=== PATIENT | female | born 1965 | race Caucasian/White ===

== ENCOUNTER 2018-08-03 08:34 | Emergency (ER) | payer MEDICARE, MEDICAID ==
[2018-08-03] MEDS ORDERED: Fluconazole 100 MG Tab PO ONE (08:47)
--- NOTE | 2018-08-03 09:04 | EDM.PDOC ---
ED HPI GENERAL MEDICAL PROBLEM - General Chief Complaint: Neuro Symptoms/Deficits Stated Complaint: HEADACHES Time Seen by Provider: 08/03/18 09:02 Source of Information: Reports: Patient - History of Present Illness INITIAL COMMENTS - FREE TEXT/NARRATIVE: HISTORY AND PHYSICAL: History of present illness: []Patient has been having some atypical seizure activity she is been followed by neurology in [place] and EEG is been performed multitude of testing she is on her current medication regimen stone she is having more symptoms not actively having symptoms at current . She has followed with Dr. Parkinson and establish care with him, she has not checked drug level since beginning lamotrigine today that is what I would have to offer she is agreeable to this she denies any head imaging as she has had lots of imaging performed in [place] No fever nausea vomiting chills sweats no chest pain shortness breath headache dizziness palpitation no bowel or urine symptoms Review of systems: As per history of present illness and below otherwise all systems reviewed and negative. Past medical history: As per history of present illness and as reviewed below otherwise noncontributory. Surgical history: As per history of present illness and as reviewed below otherwise noncontributory. Social history: No reported history of drug or alcohol abuse. Family history: As per history of present illness and as reviewed below otherwise noncontributory. Physical exam: HEENT: Atraumatic, normocephalic, pupils reactive, negative for conjunctival pallor or scleral icterus, mucous membranes moist, throat clear, neck supple, nontender, trachea midline. Lungs: Clear to auscultation, breath sounds equal bilaterally, chest nontender. Heart: S1S2, regular, negative for clicks, rubs, or JVD. Abdomen: Soft, nondistended, nontender. Negative for masses or hepatosplenomegaly. Negative for costovertebral tenderness. Pelvis: Stable nontender. Genitourinary: Deferred. Rectal: Deferred. Extremities: Atraumatic, negative for cords or calf pain. Neurovascular unremarkable. Neuro: Awake, alert, oriented. Cranial nerves II through XII unremarkable. Cerebellum unremarkable. Motor and sensory unremarkable throughout. Exam nonfocal. Diagnostics: [CBC CMP lamotrigine level ] Therapeutics: []Continue current Follow with Dr. Parkinson for medication adjustment as needed she is scheduled to see Dr. Alicia in September Impression: [] history of seizure disorder Definitive disposition and diagnosis as appropriate pending reevaluation and review of above. Generalized Pain Score (Numeric/FACES): 7 - Related Data Allergies Allergy/AdvReac Type Severity Reaction Status Date / Time No Known Allergies Allergy Verified 08/03/18 08:46 Home Meds: Home Meds Gabapentin [Neurontin] 2 - 3 tab PO ASDIRECTED 02/20/15 [History] traZODone 1 tab PO BEDTIME 02/20/15 [History] Baclofen 10 mg PO DAILY 08/03/18 [History] DULoxetine [Cymbalta] 60 mg PO DAILY 08/03/18 [History] Pramipexole [Mirapex] 0.125 mg PO DAILY 08/03/18 [History] Simvastatin 10 mg PO DAILY 08/03/18 [History] lamoTRIgine [Lamotrigine] 25 mg PO DAILY 08/03/18 [History] Past Medical History HEENT History: Reports: Impaired Vision Other 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 History: 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 glasses 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: Musculoskeletal History: Reports: Neck Pain, Chronic Psychiatric History: Reports: Depression - Past Surgical History GI Surgical History: Reports: Bariatric Procedure, Cholecystectomy Female Surgical History: Reports: Other (See Below) Other Female Surgeries/Procedures: partial hysterectomy Neurological Surgical History: Reports: C-Spine Other Neurological Surgeries/Procedures: 5&6 spinal fusion Social & Family History - Tobacco Use Smoking Status *Q: Former Smoker Used Tobacco, but Quit: Yes Month/Year Tobacco Last Used: 2017 - Caffeine Use Caffeine Use: Reports: None - Recreational Drug Use Recreational Drug Use: No ED ROS GENERAL - Review of Systems Review Of Systems: See Below ED EXAM, GENERAL - Physical Exam Exam: See Below Course - Vital Signs Last Recorded V/S: Last Vital Signs Temp 97.7 F 08/03/18 08:41 Pulse 82 08/03/18 08:41 Resp 16 08/03/18 08:41 BP 126/57 L 08/03/18 08:41 Pulse Ox 95 08/03/18 08:41 - Orders/Labs/Meds Orders: Active Orders 24 hr Category Date Time Status LAMOTRIGINE, SERUM [REF] Stat Lab 08/03/18 08:57 Ordered Labs: Laboratory Tests 08/03/18 08/03/18 Range/Units 09:10 09:10 WBC 5.13 (4.0-11.0) K/uL RBC 4.21 L (4.30-5.90) M/uL Hgb 12.8 (12.0-16.0) g/dL Hct 37.9 (36.0-46.0) % MCV 90.0 (80.0-98.0) fL MCH 30.4 (27.0-32.0) pg MCHC 33.8 (31.0-37.0) g/dL RDW Std Deviation 44.5 (28.0-62.0) fl RDW Coeff of Etienne 14 (11.0-15.0) % Plt Count 239 (150-400) K/uL MPV 9.50 (7.40-12.00) fL Nucleated RBC % 0.0 /100WBC Nucleated RBCs # 0 K/uL Sodium 138 (136-145) mmol/L Potassium 4.2 (3.5-5.1) mmol/L Chloride 106 (98-107) mmol/L Carbon Dioxide 24.6 (21.0-32.0) mmol/L BUN 10 (7.0-18.0) mg/dL Creatinine 0.6 (0.6-1.0) mg/dL Est Cr Clr Drug Dosing 102.68 mL/min Estimated GFR (MDRD) > 60.0 ml/min Glucose 77 (74-106) mg/dL Calcium 8.3 L (8.5-10.1) mg/dL Total Bilirubin 0.4 (0.2-1.0) mg/dL AST 22 (15-37) IU/L ALT 52 (14-63) IU/L Alkaline Phosphatase 56 (46-116) U/L Total Protein 6.4 (6.4-8.2) g/dL Albumin 3.3 L (3.4-5.0) g/dL Globulin 3.1 (2.0-3.5) g/dL Albumin/Globulin Ratio 1.1 L (1.3-2.8) Meds: Medications Discontinued Medications Generic Name Dose Route Start Last Admin Trade Name Freq PRN Reason Stop Dose Admin Fluconazole 100 mg 08/03/18 08:47 08/03/18 08:59 Diflucan PO 08/03/18 08:48 Not Given ONETIME ONE Departure - Departure Time of Disposition: 09:43 Disposition: Home, Self-Care 01 Condition: Good Clinical Impression: Encounter for medical screening examination - Discharge Information Forms: ED Department Discharge Additional Instructions: The following information is given to patients seen in the emergency department who are being discharged to home. This information is to outline your options for follow-up care. We provide all patients seen in our emergency department with a follow-up referral. The need for follow-up, as well as the timing and circumstances, are variable depending upon the specifics of your emergency department visit. If you don't have a primary care physician on staff, we will provide you with a referral. We always advise you to contact your personal physician following an emergency department visit to inform them of the circumstance of the visit and for follow-up with them and/or the need for any referrals to a consulting specialist. The emergency department will also refer you to a specialist when appropriate. This referral assures that you have the opportunity for follow-up care with a specialist. All of these measure are taken in an effort to provide you with optimal care, which includes your follow-up. Under all circumstances we always encourage you to contact your private physician who remains a resource for coordinating your care. When calling for follow-up care, please make the office aware that this follow-up is from your recent emergency room visit. If for any reason you are refused follow-up, please contact the [facility] emergency department at and asked to speak to the emergency department charge nurse. - My Orders Last 24 Hours: My Active Orders 08/03/18 08:57 LAMOTRIGINE, SERUM [REF] Stat - Assessment/Plan Last 24 Hours: My Active Orders 08/03/18 08:57 LAMOTRIGINE, SERUM [REF] Stat
[2018-08-03 09:40] LABS: CHLORIDE,CL 106 mmol/L (98-107); SODIUM,NA 138 mmol/L (136-145)
[2018-08-03 09:54] VITALS: BP 126/52
== END 2018-08-03 09:50 | disposition home or self-care (01) ==
LOC: MW.ED 08:34
DX: Z13.858 Encounter for screening for other nervous system disorders (principal); Z79.899 Other long term (current) drug therapy
CPT/HCPCS: 80053; 80175; 85027; 99282; 99283

== ENCOUNTER 2019-01-31 12:08 | Emergency (ER) | payer MEDICARE, MEDICAID ==
--- NOTE | 2019-01-31 12:21 | EDM.PDOC ---
ED HPI GENERAL MEDICAL PROBLEM - General Chief Complaint: ENT Problem Stated Complaint: SICK Time Seen by Provider: 01/31/19 12:18 - History of Present Illness INITIAL COMMENTS - FREE TEXT/NARRATIVE: HISTORY AND PHYSICAL: History of present illness: Patient 53-year-old female sensory concern of congestion and sinus drainage facial pain over last week she denies tobacco alcohol she states she has had tactile fever denies vomiting or diarrhea. Review of systems: As per history of present illness and below otherwise all systems reviewed and negative. Past medical history: As per history of present illness and as reviewed below otherwise noncontributory. Surgical history: As per history of present illness and as reviewed below otherwise noncontributory. Social history: No reported history of drug or alcohol abuse. Family history: As per history of present illness and as reviewed below otherwise noncontributory. Physical exam: HEENT: Atraumatic, normocephalic, pupils reactive, negative for conjunctival pallor or scleral icterus, mucous membranes moist, throat clear, neck supple, nontender, trachea midline. Tenderness over frontal and maxillary sinuses to percussion Lungs: Clear to auscultation, breath sounds equal bilaterally, chest nontender. Heart: S1S2, regular, negative for clicks, rubs, or JVD. Abdomen: Soft, nondistended, nontender. Negative for masses or hepatosplenomegaly. Negative for costovertebral tenderness. Pelvis: Stable nontender. Genitourinary: Deferred. Rectal: Deferred. Extremities: Atraumatic, negative for cords or calf pain. Neurovascular unremarkable. Neuro: Awake, alert, oriented. Cranial nerves II through XII unremarkable. Cerebellum unremarkable. Motor and sensory unremarkable throughout. Exam nonfocal. Diagnostics: Influenza screen Therapeutics: None Impression: #1 sinusitis Definitive disposition and diagnosis as appropriate pending reevaluation and review of above. 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 ED EXAM, GENERAL - Physical Exam Exam: See Below (See dictation) Course - Orders/Labs/Meds Orders: Active Orders 24 hr Category Date Time Status INFLUENZA A+B AG SCREEN [RM] Stat Lab 01/31/19 12:19 Ordered Departure - Departure Time of Disposition: 12:20 Disposition: Home, Self-Care 01 Condition: Good Clinical Impression: Sinusitis - Discharge Information Referrals: PCP,Unknown [Primary Care Provider] - Additional Instructions: The following information is given to patients seen in the emergency department who are being discharged to home. This information is to outline your options for follow-up care. We provide all patients seen in our emergency department with a follow-up referral. The need for follow-up, as well as the timing and circumstances, are variable depending upon the specifics of your emergency department visit. If you don't have a primary care physician on staff, we will provide you with a referral. We always advise you to contact your personal physician following an emergency department visit to inform them of the circumstance of the visit and for follow-up with them and/or the need for any referrals to a consulting specialist. The emergency department will also refer you to a specialist when appropriate. This referral assures that you have the opportunity for followup care with a specialist. All of these measure are taken in an effort to provide you with optimal care, which includes your followup. Under all circumstances we always encourage you to contact your private physician who remains a resource for coordinating your care. When calling for followup care, please make the office aware that this follow-up is from your recent emergency room visit. If for any reason you are refused follow-up, please contact the [facility] emergency department at and asked to speak to the emergency department charge nurse. Augmentin as prescribed decongestants as discussed follow-up private medical doctor as needed as discussed and return as needed as discussed - My Orders Last 24 Hours: My Active Orders 01/31/19 12:19 INFLUENZA A+B AG SCREEN [RM] Stat - Assessment/Plan Last 24 Hours: My Active Orders 01/31/19 12:19 INFLUENZA A+B AG SCREEN [RM] Stat
[2019-01-31 13:03] VITALS: BP 103/74
== END 2019-01-31 13:00 | disposition home or self-care (01) ==
LOC: MW.ED 12:08
DX: J32.9 Chronic sinusitis, unspecified (principal); Z79.899 Other long term (current) drug therapy
CPT/HCPCS: 87804; 99283

== ENCOUNTER 2019-04-07 08:04 | Emergency (ER) | payer MEDICARE, MEDICAID ==
--- NOTE | 2019-04-07 08:28 | EDM.PDOC ---
ED HPI GENERAL MEDICAL PROBLEM - General Chief Complaint: ENT Problem Stated Complaint: HARD TO SWALLOW Time Seen by Provider: 04/07/19 08:26 Source of Information: Reports: Patient - History of Present Illness INITIAL COMMENTS - FREE TEXT/NARRATIVE: HISTORY AND PHYSICAL: History of present illness: [Patient presents with sore throat for 3 weeks some difficulty with solid food no difficulty with liquid no muffled voice drooling or trismus has been on a round of antibiotics for sinusitis early on symptomology No fever nausea vomiting chills sweats muffled voice drooling or trismus ] Review of systems: As per history of present illness and below otherwise all systems reviewed and negative. Past medical history: As per history of present illness and as reviewed below otherwise noncontributory. Surgical history: As per history of present illness and as reviewed below otherwise noncontributory. Social history: No reported history of drug or alcohol abuse. Family history: As per history of present illness and as reviewed below otherwise noncontributory. Physical exam: HEENT: Atraumatic, normocephalic, pupils reactive, negative for conjunctival pallor or scleral icterus, mucous membranes moist, throat clear, neck supple, nontender, trachea midline. Mild erythema Lungs: Clear to auscultation, breath sounds equal bilaterally, chest nontender. Heart: S1S2, regular, negative for clicks, rubs, or JVD. Abdomen: Soft, nondistended, nontender. Negative for masses or hepatosplenomegaly. Negative for costovertebral tenderness. Pelvis: Stable nontender. Genitourinary: Deferred. Rectal: Deferred. Extremities: Atraumatic, negative for cords or calf pain. Neurovascular unremarkable. Neuro: Awake, alert, oriented. Cranial nerves II through XII unremarkable. Cerebellum unremarkable. Motor and sensory unremarkable throughout. Exam nonfocal. Diagnostics: [Rapid strep ] Therapeutics: [Augmentin Diflucan ] Impression: [ pharyngitis ] Definitive disposition and diagnosis as appropriate pending reevaluation and review of above. throat Pain Score (Numeric/FACES): 8 - Related Data Allergies Allergy/AdvReac Type Severity Reaction Status Date / Time No Known Allergies Allergy Verified 04/07/19 08:15 Home Meds: Home Meds traZODone 1 - 2 tab PO BEDTIME 02/20/15 [History] Simvastatin 10 mg PO DAILY 08/03/18 [History] ALPRAZolam [Alprazolam] 1 mg PO BID PRN 04/07/19 [History] Ergocalciferol (Vitamin D2) [Vitamin D2] 1.25 mg PO DAILY 04/07/19 [History] Ferrous Sulfate 325 mg PO BIDMEALS 04/07/19 [History] Gabapentin [Neurontin] 600 mg PO DAILY 04/07/19 [History] Mirtazapine [Remeron] 15 mg PO BEDTIME 04/07/19 [History] Pramipexole [Mirapex] 0.125 mg PO BID 04/07/19 [History] lamoTRIgine [Lamotrigine] 15 mg PO BID 04/07/19 [History] Past Medical History HEENT History: Reports: Impaired Vision Other HEENT History: wears glasses 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 History: Reports: High Cholesterol 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: Musculoskeletal History: Reports: Neck Pain, Chronic Neurological History: Reports: Seizure Psychiatric History: Reports: Anxiety, Depression - Past Surgical History GI Surgical History: Reports: Bariatric Procedure, Cholecystectomy Female Surgical History: Reports: Dilitation & Evacuation, Other (See Below) Other Female Surgeries/Procedures: partial hysterectomy Neurological Surgical History: Reports: C-Spine Other Neurological Surgeries/Procedures: 5&6 spinal fusion Social & Family History - Family History Family Medical History: Noncontributory - Caffeine Use Caffeine Use: Reports: None ED ROS GENERAL - Review of Systems Review Of Systems: See Below ED EXAM, GENERAL - Physical Exam Exam: See Below Course - Vital Signs Last Recorded V/S: Last Vital Signs Temp 97.3 F 04/07/19 08:25 Pulse 75 04/07/19 08:25 Resp 16 04/07/19 08:25 BP 124/57 L 04/07/19 08:25 Pulse Ox 95 04/07/19 08:25 - Orders/Labs/Meds Orders: Active Orders 24 hr Category Date Time Status Soft Tissue Neck w Cont [CT] Stat Exams 04/07/19 08:28 Taken CULTURE STREP A CONFIRMATION [RM] Stat Lab 04/07/19 08:42 Results STREP SCRN A RAPID W CULT CONF [RM] Stat Lab 04/07/19 08:42 Results Labs: Laboratory Tests 04/07/19 04/07/19 Range/Units 08:51 08:51 WBC 6.34 (4.0-11.0) K/uL RBC 4.35 (4.30-5.90) M/uL Hgb 13.1 (12.0-16.0) g/dL Hct 40.1 (36.0-46.0) % MCV 92.2 (80.0-98.0) fL MCH 30.1 (27.0-32.0) pg MCHC 32.7 (31.0-37.0) g/dL RDW Std Deviation 52.1 (28.0-62.0) fl RDW Coeff of Etienne 15 (11.0-15.0) % Plt Count 268 (150-400) K/uL MPV 9.10 (7.40-12.00) fL Neut % (Auto) 59.3 (48.0-80.0) % Lymph % (Auto) 30.3 (16.0-40.0) % Ballard % (Auto) 8.5 (0.0-15.0) % Eos % (Auto) 1.4 (0.0-7.0) % Baso % (Auto) 0.5 (0.0-1.5) % Neut # (Auto) 3.8 (1.4-5.7) K/uL Lymph # (Auto) 1.9 (0.6-2.4) K/uL Ballard # (Auto) 0.5 (0.0-0.8) K/uL Eos # (Auto) 0.1 (0.0-0.7) K/uL Baso # (Auto) 0.0 (0.0-0.1) K/uL Nucleated RBC % 0.0 /100WBC Nucleated RBCs # 0 K/uL Sodium 139 (136-145) mmol/L Potassium 4.3 (3.5-5.1) mmol/L Chloride 105 (98-107) mmol/L Carbon Dioxide 25.7 (21.0-32.0) mmol/L BUN 13 (7.0-18.0) mg/dL Creatinine 0.7 (0.6-1.0) mg/dL Est Cr Clr Drug Dosing 88.01 mL/min Estimated GFR (MDRD) > 60.0 ml/min Glucose 92 (74-106) mg/dL Calcium 8.3 L (8.5-10.1) mg/dL Meds: Medications Discontinued Medications Generic Name Dose Route Start Last Admin Trade Name Miguelito PRN Reason Stop Dose Admin Sodium Chloride 1,000 mls @ 999 mls/hr 04/07/19 08:30 04/07/19 08:56 Normal Saline IV 04/07/19 09:30 999 mls/hr STAT ONE Administration Iopamidol 80 ml 04/07/19 10:10 04/07/19 10:10 Isovue Multipack-370 (76%) IVPUSH 04/07/19 10:11 80 ml ONETIME STA Administration Departure - Departure Time of Disposition: 11:39 Disposition: Home, Self-Care 01 Condition: Good Clinical Impression: Pharyngitis - Discharge Information Referrals: PCP,None [Primary Care Provider] - Forms: ED Department Discharge Additional Instructions: The following information is given to patients seen in the emergency department who are being discharged to home. This information is to outline your options for follow-up care. We provide all patients seen in our emergency department with a follow-up referral. The need for follow-up, as well as the timing and circumstances, are variable depending upon the specifics of your emergency department visit. If you don't have a primary care physician on staff, we will provide you with a referral. We always advise you to contact your personal physician following an emergency department visit to inform them of the circumstance of the visit and for follow-up with them and/or the need for any referrals to a consulting specialist. The emergency department will also refer you to a specialist when appropriate. This referral assures that you have the opportunity for follow-up care with a specialist. All of these measure are taken in an effort to provide you with optimal care, which includes your follow-up. Under all circumstances we always encourage you to contact your private physician who remains a resource for coordinating your care. When calling for follow-up care, please make the office aware that this follow-up is from your recent emergency room visit. If for any reason you are refused follow-up, please contact the [facility] emergency department at and asked to speak to the emergency department charge nurse. - My Orders Last 24 Hours: My Active Orders 04/07/19 08:28 Soft Tissue Neck w Cont [CT] Stat 04/07/19 08:42 CULTURE STREP A CONFIRMATION [RM] Stat STREP SCRN A RAPID W CULT CONF [RM] Stat - Assessment/Plan Last 24 Hours: My Active Orders 04/07/19 08:28 Soft Tissue Neck w Cont [CT] Stat 04/07/19 08:42 CULTURE STREP A CONFIRMATION [RM] Stat STREP SCRN A RAPID W CULT CONF [RM] Stat
[2019-04-07] MEDS ORDERED: Sodium Chloride 0.9% 1,000 ML IV ONE (08:30)
[2019-04-07 09:14] LABS: CHLORIDE,CL 105 mmol/L (98-107); SODIUM,NA 139 mmol/L (136-145)
[2019-04-07] MEDS ORDERED: Iopamidol 755 MG/ML 500 ML Multipack Bottle IVPUSH STA (10:10)
--- NOTE | 2019-04-07 11:40 | CT ---
INDICATION: Sore throat. Difficulty swallowing. TECHNIQUE: CT scan of the neck with 80 cc of Isovue-370 given intravenously. FINDINGS: Patent airway. No abnormalities of the nasopharynx, oropharynx, or hypopharynx identified. No adenopathy. The paranasal sinuses are well pneumatized and show no air-fluid levels or mucous membrane thickening. Anterior stabilization hardware at C5-6. No evidence of acute fracture or dislocation. No other bony or soft tissue abnormalities identified. IMPRESSION: No abnormalities of the neck identified. Dictated by Davide Russell MD @ 04/07/2019 11:37:54 AM Dictated by: Davide Russell MD @ 04/07/2019 11:38:06 (Electronically Signed)
[2019-04-07 11:50] VITALS: BP 111/69
== END 2019-04-07 11:50 | disposition home or self-care (01) ==
LOC: MW.ED 08:04
DX: J02.9 Acute pharyngitis, unspecified (principal); F41.9 Anxiety disorder, unspecified; F32.9 Major depressive disorder, single episode, unspecified; Z98.84 Bariatric surgery status; Z90.49 Acquired absence of other specified parts of digestive tract; Z98.890 Other specified postprocedural states; Z90.710 Acquired absence of both cervix and uterus; Z98.1 Arthrodesis status
CPT/HCPCS: 36415; 70491; 80048; 85025; 87081; 87880; 96360; 99283; J7040; Q9967; 99282

== ENCOUNTER 2019-10-22 01:23 | Emergency (ER) | payer MEDICARE, MEDICAID ==
[2019-10-22 01:45] VITALS: BP 110/63; PULSE 67
--- NOTE | 2019-10-22 01:58 | EDM.PDOC ---
ED HPI GENERAL MEDICAL PROBLEM - General Chief Complaint: General Stated Complaint: INSOMNIA, LOWER BACK PAIN Time Seen by Provider: 10/22/19 01:40 - History of Present Illness INITIAL COMMENTS - FREE TEXT/NARRATIVE: HISTORY AND PHYSICAL: History of present illness: The patient is a 54-year-old female who follows with Dr. Carver at [facility] and has a longstanding history of chronic back pain for which she has had multiple surgeries, done physical therapy taking narcotics which she has been off for the last 6 years use muscle relaxers and is currently on gabapentin and trazodone and also has problems with insomnia and sleep issues for which she just recently [facility] concerns about worsening of her lumbar back pain which she says now is bilateral and and coming around to the sides and she is concerned about a bladder infection. Patient says she has had UTIs in the past and they have had very atypical presentations and she has received multiple courses of antibiotics and she is concerned about that this evening. She says her back pain is similar to her chronic back pain and is not new or different and she has had no new injuries or no new activities. The pain always radiates to her legs and that is not new or different and she has had no bowel or bladder disturbances. She has no new weakness numbness or tingling and the pain is worse with certain positions and certain movements. She says that Dr. Richards has been working with her with her pain management and her last MRI she thought was just this summer but in fact according to the computer it was in August 2018 which I have reviewed. On that MRI she had mild to moderate disc bulge at L5-S1 and a lot of degenerative disc changes. In my conversation with the patient in trying to help her with her exacerbation of her pain we have discussed what options I have here in the ED to offer her and with each time I make a suggestion or I make an offer of what we can do she proceeds to tell me how that has not worked in the past. It is unclear to me on my initial evaluation what this patient would like so I directly asked her and she says that she just wants to go to sleep [facility]. She says that she has an appointment with Dr. Richards on the this month and she was not able to get in sooner. She has no fevers chills CVA tenderness anterior abdominal pain no upper back or neck pain that is new or different as she has chronic pain in those locations as well. She has no cough chest pain or shortness of breath and has been eating and drinking normally. Review of systems: As per history of present illness and below otherwise all systems reviewed and negative. Past medical history: As per history of present illness and as reviewed below otherwise noncontributory. Surgical history: As per history of present illness and as reviewed below otherwise noncontributory. Social history: No reported history of drug or alcohol abuse. Family history: As per history of present illness and as reviewed below otherwise noncontributory. Physical exam: Mental: Well-developed well-nourished female who moves and position changes slowly but without assistance and is ambulatory in the ED. Vital signs are noted by me HEENT: Atraumatic, normocephalic, pupils reactive, negative for conjunctival pallor or scleral icterus, mucous membranes moist, throat clear, neck supple, nontender, trachea midline. Lungs: Clear to auscultation, breath sounds equal bilaterally, chest nontender. Heart: S1S2, regular, rate and rhythm no overt murmurs Abdomen: Soft, nondistended, nontender. Negative for masses or hepatosplenomegaly. Negative for costovertebral tenderness. Pelvis: Stable nontender. Genitourinary: Deferred. Rectal: Deferred. Extremities: Atraumatic, negative for cords or calf pain. Neurovascular unremarkable. Neuro: Awake, alert, oriented. Cranial nerves II through XII unremarkable. Cerebellum unremarkable. Motor and sensory unremarkable throughout. Exam nonfocal. Back: There are no midline step-offs or defects of the thoracic or lumbar spine and there is diffuse paraspinal discomfort with anywhere I touch in the thoracic and lumbar regions without any defects or deformities. Diagnostics: UA With reflex Therapeutics: xanax, Lidoderm patch I stressed to the patient that she would need to call the clinic in the morning and see if she can get in with a different provider other than Dr. Richards so that she could be seen here sooner and potentially have some of her medications adjusted to help with her back pain. We also discussed the possibility of asking Dr. Parkinson or one of his associates for possible physical therapy options as she thinks a lot of this may be more muscular in origin. The patient is excepting of a Lidoderm patch to try as well as one dose of Xanax to take when she gets at home. Impression: aCute on chronic lumbar back pain Definitive disposition and diagnosis as appropriate pending reevaluation and review of above. lower back Pain Score (Numeric/FACES): 9 - Related Data Allergies Allergy/AdvReac Type Severity Reaction Status Date / Time No Known Allergies Allergy Verified 10/22/19 01:38 Home Meds: Home Meds traZODone 1 - 2 tab PO BEDTIME 02/20/15 [History] Simvastatin 10 mg PO DAILY 08/03/18 [History] ALPRAZolam [Alprazolam] 1 mg PO BID PRN 04/07/19 [History] Ergocalciferol (Vitamin D2) [Vitamin D2] 1.25 mg PO DAILY 04/07/19 [History] Ferrous Sulfate 325 mg PO BIDMEALS 04/07/19 [History] Gabapentin [Neurontin] 600 mg PO DAILY 04/07/19 [History] Mirtazapine [Remeron] 15 mg PO BEDTIME 04/07/19 [History] Pramipexole [Mirapex] 0.125 mg PO BID 04/07/19 [History] lamoTRIgine [Lamotrigine] 15 mg PO BID 04/07/19 [History] Past Medical History HEENT History: Reports: Impaired Vision Other HEENT History: wears glasses 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 History: Reports: High Cholesterol Respiratory History: Reports: None 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: Musculoskeletal History: Reports: Neck Pain, Chronic Neurological History: Reports: Seizure Psychiatric History: Reports: Anxiety, Depression - Infectious Disease History Infectious Disease History: Reports: Chicken Pox - Past Surgical History GI Surgical History: Reports: Bariatric Procedure, Cholecystectomy Female Surgical History: Reports: Dilitation & Evacuation, Other (See Below) Other Female Surgeries/Procedures: partial hysterectomy Neurological Surgical History: Reports: C-Spine Other Neurological Surgeries/Procedures: 5&6 spinal fusion Social & Family History - Family History Family Medical History: Noncontributory - Tobacco Use Smoking Status *Q: Former Smoker Used Tobacco, but Quit: Yes Month/Year Tobacco Last Used: 2012 - Caffeine Use Caffeine Use: Reports: None - Recreational Drug Use Recreational Drug Use: No ED ROS GENERAL - Review of Systems Review Of Systems: Comprehensive ROS is negative, except as noted in HPI. ED EXAM, GENERAL - Physical Exam Exam: See Below (See dictation) Course - Vital Signs Last Recorded V/S: Last Vital Signs Temp 36.2 C 10/22/19 01:40 Pulse 67 10/22/19 01:40 Resp 18 10/22/19 01:40 BP 110/63 10/22/19 01:40 Pulse Ox 99 10/22/19 01:40 - Orders/Labs/Meds Orders: Active Orders 24 hr Category Date Time Status ALPRAZolam [Xanax] Med 10/22/19 21:00 Ordered 0.5 mg PO BEDTIME Lidocaine 5% [Lidoderm 5%] Med 10/22/19 02:09 Once 700 mg TOP ONETIME ONE Labs: Laboratory Tests 10/22/19 Range/Units 01:50 Urine Color YELLOW Urine Appearance CLEAR Urine pH 6.0 (5.0-8.0) Ur Specific [place] 1.010 (1.001-1.035) Urine Protein NEGATIVE (NEGATIVE) mg/dL Urine Glucose (UA) NEGATIVE (NEGATIVE) mg/dL Urine Ketones NEGATIVE (NEGATIVE) mg/dL Urine Occult Blood NEGATIVE (NEGATIVE) Urine Nitrite NEGATIVE (NEGATIVE) Urine Bilirubin NEGATIVE (NEGATIVE) Urine Urobilinogen 0.2 (<2.0) EU/dL Ur Leukocyte Esterase NEGATIVE (NEGATIVE) Departure - Departure Time of Disposition: 02:15 Disposition: Home, Self-Care 01 Condition: Good Clinical Impression: Acute exacerbation of chronic low back pain - Discharge Information Referrals: Kirill Parkinson MD [Primary Care Provider] - Forms: ED Department Discharge Additional Instructions: The following information is given to patients seen in the emergency department who are being discharged to home. This information is to outline your options for follow-up care. We provide all patients seen in our emergency department with a follow-up referral. The need for follow-up, as well as the timing and circumstances, are variable depending upon the specifics of your emergency department visit. If you don't have a primary care physician on staff, we will provide you with a referral. We always advise you to contact your personal physician following an emergency department visit to inform them of the circumstance of the visit and for follow-up with them and/or the need for any referrals to a consulting specialist. The emergency department will also refer you to a specialist when appropriate. This referral assures that you have the opportunity for followup care with a specialist. All of these measure are taken in an effort to provide you with optimal care, which includes your followup. Under all circumstances we always encourage you to contact your private physician who remains a resource for coordinating your care. When calling for followup care, please make the office aware that this follow-up is from your recent emergency room visit. If for any reason you are refused follow-up, please contact the [facility] emergency department at and ask to speak to the emergency department charge nurse [address] [place] [address] Please call the clinic later this morning and see if you can move your appointment up with Dr. Richards or also except an appointment from another provider there if he is not available. Discussed with your provider your medication regimen and to see if there is any options or change within it. Continue to do stretching exercises and discussed with your provider the possibility of physical therapy going forward. Rest and push hydration and return to ER as needed and as discussed Sepsis Event Note - Evaluation Sepsis Screening Result: No Definite Risk - Focused Exam Vital Signs: Vital Signs Temp Pulse Resp BP Pulse Ox 10/22/19 01:40 36.2 C 67 18 110/63 99 Date Exam was Performed: 10/22/19 Time Exam was Performed: 02:14 - My Orders Last 24 Hours: My Active Orders 10/22/19 02:09 Lidocaine 5% [Lidoderm 5%] 700 mg TOP ONETIME ONE 10/22/19 21:00 ALPRAZolam [Xanax] 0.5 mg PO BEDTIME - Assessment/Plan Last 24 Hours: My Active Orders 10/22/19 02:09 Lidocaine 5% [Lidoderm 5%] 700 mg TOP ONETIME ONE 10/22/19 21:00 ALPRAZolam [Xanax] 0.5 mg PO BEDTIME
[2019-10-22] MEDS ORDERED: Lidocaine 5% 700 MG Patch TOP ONE (02:09)
[2019-10-22] MEDS ORDERED: ALPRAZolam 0.5 MG Tab ONE (02:43)
[2019-10-22] MEDS ORDERED: ALPRAZolam 0.5 MG Tab PO SCH (21:00)
== END 2019-10-22 02:45 | disposition home or self-care (01) ==
LOC: MW.ED 01:23
DX: M54.5 Low back pain (principal); G89.29 Other chronic pain; E78.00 Pure hypercholesterolemia, unspecified; F32.9 Major depressive disorder, single episode, unspecified; F41.9 Anxiety disorder, unspecified; Z79.899 Other long term (current) drug therapy; Z87.891 Personal history of nicotine dependence
CPT/HCPCS: 81003; 99283; A9270

== ENCOUNTER 2020-06-26 13:59 | Emergency (ER) | payer MEDICARE, MEDICAID ==
[2020-06-26] MEDS ORDERED: Lidocaine 2% Viscous Solution 15 ML Cup PO ONE (14:32)
[2020-06-26] MEDS ORDERED: Benzocaine 20% Topical Spray UD MUCMEM ONE (14:32)
--- NOTE | 2020-06-26 14:36 | EDM.PDOC ---
ED HPI GENERAL MEDICAL PROBLEM - General Chief Complaint: ENT Problem Stated Complaint: TOOTH PAIN Time Seen by Provider: 06/26/20 14:16 Source of Information: Reports: Patient History Limitations: Reports: No Limitations - History of Present Illness INITIAL COMMENTS - FREE TEXT/NARRATIVE: HISTORY AND PHYSICAL: History of present illness: Patient is a 54-year-old female who presents to the emergency room with complaints of an one-week history of left lower dental pain and soft tissue swelling. She called a dentist 5 days ago" pleaded with him to give me a prescription for antibiotics". She was given a prescription for Pen-Vee K 500 twice daily, she is currently on day #5 but feels no improvement. She does have an appointment next week with the dentist but states she has not been able to sleep and feels the antibiotic is not working. Patient denies any fever, chills, headache, change in vision, syncope or near syncope. Denies any chest pain, back pain, shortness of breath or cough. Denies any abdominal pain, nausea, vomiting, diarrhea, constipation or dysuria. Has not noted any blood in urine or stool. Patient has been eating and drinking appropriately. Review of systems: As per history of present illness and below otherwise all systems reviewed and negative. Past medical history: As per history of present illness and as reviewed below otherwise nonco ntributory. Surgical history: As per history of present illness and as reviewed below otherwise noncontributory. Social history: See social history for further information Family history: As per history of present illness and as reviewed below otherwise noncontributory. Physical exam: General: Well developed and well nourished 54-year-old female. Alert and orientated x 3. Nontoxic in appearance and in no acute distress. Vital signs are stable and have been reviewed by me. Nursing notes were reviewed. HEENT: Atraumatic, normocephalic, pupils equal and reactive bilaterally, negative for conjunctival pallor or scleral icterus, mucous membranes moist, mild redness and soft tissue swelling along the gumline of the left posterior molar. TMs normal bilaterally, throat clear, neck supple, nontender, trachea midline. No drooling or trismus noted. No meningeal signs. No hot potato voice noted. Lungs: Clear to auscultation, breath sounds equal bilaterally. Normal work of breathing, no accessory muscles used. Heart: S1S2, regular rate and rhythm without overt murmur Skin: Intact, warm, dry. No lesions or rashes noted. Hematologic: No petechiae or purpra. Mucosa appropriate color and normal nail bed color and refill. Extremities: Atraumatic, moves all extremities per self without difficulty or deficits, negative for cords or calf pain. Neurovascular unremarkable. Neuro: Awake, alert, oriented. Cranial nerves II through XII unremarkable. Cerebellum unremarkable. Motor and sensory unremarkable throughout. Exam nonfocal. Notes: Encourage patient to keep her appointment for next week. We discussed signs and symptoms that would prompt them to return to the Emergency Department. Medication, follow up and supportive care measures were reviewed and discussed. Voices understanding and is agreeable to plan of care. Denies any further questions or concerns at this time. Diagnostics: None Therapeutics: Dental Balls Prescription: Tylenol #3, Clindamycin Impression: Dental abscess Plan: 1. Please take the antibiotic as prescribed. 2. Tylenol and/or ibuprofen as needed for pain management. "Tooth Balls" have been given to you; apply along the gumline every 2-3 hours as needed. Do not swallow these; external use only. 3. Follow-up with a dentist for definitive care. Return to the ED as needed and as discussed. Definitive disposition and diagnosis as appropriate pending reevaluation and review of above. - Related Data Allergies Allergy/AdvReac Type Severity Reaction Status Date / Time No Known Allergies Allergy Verified 06/26/20 14:35 Home Meds: Home Meds traZODone 1 - 2 tab PO BEDTIME 02/20/15 [History] Acetaminophen/Codeine [Tylenol with Codeine No.3 300MG/30MG] 1 tab PO Q4H PRN # 20 tab 06/26/20 [Rx] Clindamycin HCl 300 mg PO TID 7 Days #21 capsule 06/26/20 [Rx] Estrogens, Conjugated [Premarin] 0.5 mg PO DAILY 06/26/20 [History] FLUoxetine HCl [Fluoxetine] 60 mg PO DAILY 06/26/20 [History] Penicillin V Potassium 500 mg PO BID 06/26/20 [History] Simvastatin 06/26/20 [History] Past Medical History HEENT History: Reports: Impaired Vision Other HEENT History: wears glasses 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 History: Reports: High Cholesterol Respiratory History: Reports: None 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: Musculoskeletal History: Reports: Fibromyalgia, Neck Pain, Chronic, Osteoporosis Neurological History: Reports: Seizure Psychiatric History: Reports: Anxiety, Depression - Infectious Disease History Infectious Disease History: Reports: Chicken Pox - Past Surgical History GI Surgical History: Reports: Bariatric Procedure, Cholecystectomy Female Surgical History: Reports: Dilitation & Evacuation, Other (See Below) Other Female Surgeries/Procedures: partial hysterectomy Neurological Surgical History: Reports: C-Spine Other Neurological Surgeries/Procedures: 5&6 spinal fusion Social & Family History - Family History Family Medical History: Noncontributory - Caffeine Use Caffeine Use: Reports: None ED ROS ENT - Review of Systems Review Of Systems: Comprehensive ROS is negative, except as noted in HPI. ED EXAM, ENT - Physical Exam Exam: See Below (See dictation) Course - Vital Signs Last Recorded V/S: Last Vital Signs Temp 96.7 F L 06/26/20 14:33 Pulse 60 06/26/20 14:33 Resp 20 06/26/20 14:33 BP 151/87 H 06/26/20 14:33 Pulse Ox 97 06/26/20 14:33 - Orders/Labs/Meds Meds: Medications Discontinued Medications Generic Name Dose Route Start Last Admin Trade Name Freq PRN Reason Stop Dose Admin Benzocaine 2 each 06/26/20 14:32 06/26/20 15:12 Hurricaine One 20% MUCMEM 06/26/20 14:33 2 each ONETIME ONE Administration Lidocaine HCl 15 ml 06/26/20 14:32 06/26/20 15:12 Xylocaine 2% Viscous PO 06/26/20 14:33 15 ml ONETIME ONE Administration Departure - Departure Time of Disposition: 14:35 Disposition: Home, Self-Care 01 Clinical Impression: Dental abscess - Discharge Information Prescriptions: Clindamycin HCl 300 mg PO TID 7 Days #21 capsule Acetaminophen/Codeine [Tylenol with Codeine No.3 300MG/30MG] 1 tab PO Q4H PRN #20 tab PRN Reason: Pain Instructions: Dental Abscess, [id number] Referrals: Kirill Parkinson MD [Primary Care Provider] - Forms: ED Department Discharge Additional Instructions: The following information is given to patients seen in the emergency department who are being discharged to home. This information is to outline your options for follow-up care. We provide all patients seen in our emergency department with a follow-up referral. The need for follow-up, as well as the timing and circumstances, are variable depending upon the specifics of your emergency department visit. If you don't have a primary care physician on staff, we will provide you with a referral. We always advise you to contact your personal physician following an emergency department visit to inform them of the circumstance of the visit and for follow-up with them and/or the need for any referrals to a consulting specialist. The emergency department will also refer you to a specialist when appropriate. This referral assures that you have the opportunity for follow-up care with a specialist. All of these measure are taken in an effort to provide you with optimal care, which includes your follow-up. Under all circumstances we always encourage you to contact your private physician who remains a resource for coordinating your care. When calling for follow-up care, please make the office aware that this follow-up is from your recent emergency room visit. If for any reason you are refused follow-up, please contact the Emergency Department at and asked to speak to the emergency department charge nurse. Primary Care [address] [place] [address] [place] [address] Thank you for choosing the [facility] emergency department in [place] for your medical needs today. It was a pleasure caring for you. Today you were seen in the emergency department for dental pain. 1. Please take the antibiotic as prescribed. 2. Tylenol and/or ibuprofen as needed for pain management. "Tooth Balls" have been given to you; apply along the gumline every 2-3 hours as needed. Do not swallow these; external use only. 3. Follow-up with a dentist for definitive care. Return to the ED as needed and as discussed. Sepsis Event Note (ED) - Evaluation Sepsis Screening Result: No Definite Risk - Focused Exam Vital Signs: Vital Signs Temp Pulse Resp BP Pulse Ox 06/26/20 14:33 96.7 F L 60 20 151/87 H 97
[2020-06-26 16:42] VITALS: BP 148/81; PULSE 65
== END 2020-06-26 15:15 | disposition home or self-care (01) ==
LOC: MW.ED 13:59
DX: K04.7 Periapical abscess without sinus (principal); E78.00 Pure hypercholesterolemia, unspecified; F41.9 Anxiety disorder, unspecified; F32.9 Major depressive disorder, single episode, unspecified; Z79.899 Other long term (current) drug therapy
CPT/HCPCS: 99282; A9270

== ENCOUNTER 2020-08-22 17:52 | Inpatient (IN) | payer MEDICARE, MEDICAID, OTHER ==
[2020-08-22] MEDS ORDERED: Sodium Chloride 0.9% 1,000 ML IV ONE (18:23)
[2020-08-22] MEDS ORDERED: cefTRIAXone 2 GM in Premix Bag 1 BAG IV ONE (18:25)
[2020-08-22] MEDS ORDERED: Sodium Chloride 0.9% 10 ML Syringe FLUSH PRN (18:25)
[2020-08-22] MEDS ORDERED: Acetaminophen 500 MG Tab PO ONE (18:25)
[2020-08-22] MEDS ORDERED: Sodium Chloride 0.9% 2.5 ML Syringe FLUSH PRN (18:25)
[2020-08-22] MEDS ORDERED: Dexamethasone 10 MG/ML SDV IVPUSH ONE (18:25)
[2020-08-22] MEDS ORDERED: Prochlorperazine 10 MG/2 ML SDV IVPUSH ONE (18:25)
[2020-08-22] MEDS ORDERED: Ketorolac 15 MG/ML SDV IVPUSH ONE (18:25)
--- NOTE | 2020-08-22 18:34 | EDM.PDOC ---
<Tyler Schilling - Last Filed: 08/22/20 18:53> ED HPI GENERAL MEDICAL PROBLEM - General Chief Complaint: General Stated Complaint: COVID POSITIVE Time Seen by Provider: 08/22/20 18:11 - History of Present Illness INITIAL COMMENTS - FREE TEXT/NARRATIVE: HISTORY AND PHYSICAL: History of present illness: This 55-year-old female recently tested positive for COVID-19 reports that she is immunocompromised with an unspecified immunocompromising illness that requires her to get pneumonia shots and flu vaccines every year. Otherwise she will become sick with pneumonia or bronchitis. Patient reports that she tested positive for COVID-19. The test was done 3 days ago and she was called today. She feels miserable, she has headache, myalgias, fatigue, shortness of breath, and feels dehydrated. She states, "this is the worst I have ever felt" and "I have never been this sick before". She denies any urinary symptoms. No vaginal symptoms. Denies any other associated signs or symptoms. No other modifying, aggravating or alleviating factors. Review of systems: A 10-point review of systems, other than pertinent positives and negatives as stated per HPI, is otherwise negative. Past medical history: As per history of present illness and as reviewed below otherwise noncontributory. Surgical history: As per history of present illness and as reviewed below otherwise noncontributory. Social history: No reported history of drug or alcohol abuse. Family history: As per history of present illness and as reviewed below otherwise noncontributory. Physical exam: VITAL SIGNS: Reviewed. GENERAL: Appears mildly to moderately ill. Dry mucous membranes. HEAD: No signs of head trauma. EYES: Pupils are equal. Extraocular motions intact. EARS: Hearing grossly intact. MOUTH: Oropharynx is normal. Mucous membrane. NECK: No adenopathy, no JVD. CHEST: Mild tachypnea. No accessory muscle use. No audible adventitious breath sounds. CARDIAC: Tachycardic rate. Regular rhythm. I do not appreciate a murmur. VASCULAR: Peripheral pulses normal and equal in all extremities. ABDOMEN: Soft, without detectable tenderness. No sign of distention. No rebound or guarding, and no masses palpated. MUSCULOSKELETAL: Good range of motion of all major joints. Extremities without clubbing, cyanosis or edema. NEUROLOGIC EXAM: Alert and oriented x 3. No focal sensory or motor deficits. Speech normal. Follows commands. PSYCHIATRIC: Mood normal. SKIN: No rash or lesions. Initial Differential Diagnosis & Plan: COVID-19 infection, pneumonia, atypical pneumonia, bronchitis, influenza Given the patient is COVID-19 positive this is most likely COVID pneumonia. We will check for hypoxemia. Initial oxygen saturation is around 92% with a good [place]. She is mildly tachycardic. We will give symptomatic treatment with steroids, IV fluids, Compazine, antipyretics, and evaluate her underlying renal function, biomarkers, and determine if she requires admission to the hospital. Definitive disposition and diagnosis as appropriate pending reevaluation and review of above. whole body Pain Score (Numeric/FACES): 8 - Related Data Allergies Allergy/AdvReac Type Severity Reaction Status Date / Time No Known Allergies Allergy Verified 08/22/20 18:34 Home Meds: Home Meds traZODone 1 - 2 tab PO BEDTIME 02/20/15 [History] Acetaminophen/Codeine [Tylenol with Codeine No.3 300MG/30MG] 1 tab PO Q4H PRN #20 tab 06/26/20 [Rx] Clindamycin HCl 300 mg PO TID 7 Days #21 capsule 06/26/20 [Rx] Estrogens, Conjugated [Premarin] 0.5 mg PO DAILY 06/26/20 [History] FLUoxetine HCl [Fluoxetine] 60 mg PO DAILY 06/26/20 [History] Penicillin V Potassium 500 mg PO BID 06/26/20 [History] Simvastatin 06/26/20 [History] Past Medical History HEENT History: Reports: Impaired Vision Other HEENT History: wears glasses 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 History: Reports: High Cholesterol Respiratory History: Reports: None 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 [employer] History: Reports: Musculoskeletal History: Reports: Fibromyalgia, Neck Pain, Chronic, Osteoporosis Neurological History: Reports: Seizure Psychiatric History: Reports: Anxiety, Depression - Infectious Disease History Infectious Disease History: Reports: Chicken Pox - Past Surgical History GI Surgical History: Reports: Bariatric Procedure, Cholecystectomy Female Surgical History: Reports: Dilitation & Evacuation, Other (See Below) Other Female Surgeries/Procedures: partial hysterectomy Neurological Surgical History: Reports: C-Spine Other Neurological Surgeries/Procedures: 5&6 spinal fusion Social & Family History - Family History Family Medical History: Noncontributory - Caffeine Use Caffeine Use: Reports: None ED ROS GENERAL - Review of Systems Review Of Systems: See Below (noted) ED EXAM, GENERAL - Physical Exam Exam: See Below (noted) ED GENERAL MEDICAL PROCEDURES - Additional/Other Procedure(s) Other (Free Text) Procedure(s): Procedure Note: Physician placed IV Due to difficult or critical IV access situation I have placed an IV for treatment and circulatory access. Location: 18-gauge angiocatheter, right antecubital fossa Complications: None #1 Interpretation EKG Interpretation Comments: 12 lead EKG interpretation Obtained: August 22, 2020 0812 Rhythm: Sinus Rate:'s [place]: Normal Intervals: Normal ST/T Segments: No acute ischemic changes Interpretation: Sinus Rhythm Departure - Departure Disposition: Refer to Observation Clinical Impression: Hypoxia, COVID-19 - Discharge Information Referrals: Kirill Parkinson MD [Primary Care Provider] - Forms: ED Department Discharge Sepsis Event Note (ED) - Evaluation Sepsis Screening Result: No Definite Risk <Benito Dutta - Last Filed: 08/22/20 20:18> ED HPI GENERAL MEDICAL PROBLEM - History of Present Illness INITIAL COMMENTS - FREE TEXT/NARRATIVE: Patient was signed out to me by Dr. Schilling pending further lab results and imaging at 7PM. Patient was reevaluated and was speaking in full sentences and did not appear to be tachypneic. At the time of my evaluation she was 93% on room air. Blood pressure was normal. Labs were reviewed which did reveal normal CBC, CMP revealing mild elevation in AST. CRP was mildly elevated at 4.4. Lactic acid was 1.3. Urinalysis was negative. D-dimer was slightly positive at 0.80. Coags were normal. The radiological images were viewed by myself along with reading the report from the radiologist. Chest x-ray reveals possible faint infiltrate at the bilateral lung bases which may represent sequela of COVID-19 viral pneumonitis. Reevaluation, the patient did have mild desaturation into upper 80s therefore we placed patient on nasal cannula oxygen. I did have a discussion with the patient regarding admission at this time given her hypoxia. She was amenable to this plan. Therefore I contacted hospitalist Dr. Jones who accepted the patient for observation telemetry. DISPOSITION: Patient was admitted to observation telemetry in stable condition CONDITION: Fair PROCEDURES: None FINAL IMPRESSION(S)/DIAGNOSES: 1. Acute hypoxic respiratory distress secondary to COVID-19 2. Acute COVID-19 Benito Dutta M.D. Course - Vital Signs Last Recorded V/S: Last Vital Signs Temp 36.7 C 08/22/20 18:24 Pulse 84 08/22/20 19:28 Resp 18 08/22/20 19:28 BP 139/84 08/22/20 19:28 Pulse Ox 94 L 08/22/20 19:28 - Orders/Labs/Meds Orders: Active Orders 24 hr Category Date Time Status Ambulate [RC] ASDIRECTED Care 08/22/20 18:26 Active Cardiac Monitoring [RC] . DIRECTED Care 08/22/20 18:26 Active EKG Documentation Completion [RC] STAT Care 08/22/20 18:27 Active Pulse Oximetry [RC] ASDIRECTED Care 08/22/20 18:26 Active CORONAVIRUS COVID-19 PCR PHL Stat Lab 08/22/20 18:26 Ordered CULTURE BLOOD [BC] Stat Lab 08/22/20 19:05 Received CULTURE BLOOD [BC] Stat Lab 08/22/20 19:20 Results Sodium Chloride 0.9% [Saline Flush] Med 08/22/20 18:25 Active 10 ml FLUSH ASDIRECTED PRN Sodium Chloride 0.9% [Saline Flush] Med 08/22/20 18:25 Active 2.5 ml FLUSH ASDIRECTED PRN Blood Culture x2 Reflex Set [OM.PC] Stat Oth 08/22/20 18:27 Ordered Saline Lock Insert [OM.PC] Stat Oth 08/22/20 18:26 Ordered Medication Orders Sodium Chloride (Saline Flush) 10 ml FLUSH ASDIRECTED PRN PRN Reason: Keep Vein Open Last Admin: 08/22/20 18:45 Dose: 10 ml Documented by: IVÁN Sodium Chloride (Saline Flush) 2.5 ml FLUSH ASDIRECTED PRN PRN Reason: Keep Vein Open Last Admin: 08/22/20 18:45 Dose: 2.5 ml Documented by: IVÁN Labs: Laboratory Tests 08/22/20 08/22/20 08/22/20 Range/Units 18:38 18:38 18:38 WBC 5.02 (4.0-11.0) K/uL RBC 4.51 (4.30-5.90) M/uL Hgb 13.6 (12.0-16.0) g/dL Hct 41.8 (36.0-46.0) % MCV 92.7 (80.0-98.0) fL MCH 30.2 (27.0-32.0) pg MCHC 32.5 (31.0-37.0) g/dL RDW Std Deviation 45.4 (28.0-62.0) fl RDW Coeff of Etienne 13 (11.0-15.0) % Plt Count 179 (150-400) K/uL MPV 10.00 (7.40-12.00) fL Neut % (Auto) 68.1 (48.0-80.0) % Lymph % (Auto) 25.7 (16.0-40.0) % [place] % (Auto) 5.6 (0.0-15.0) % Eos % (Auto) 0.2 (0.0-7.0) % Baso % (Auto) 0.4 (0.0-1.5) % Neut # (Auto) 3.4 (1.4-5.7) K/uL Lymph # (Auto) 1.3 (0.6-2.4) K/uL [place] # (Auto) 0.3 (0.0-0.8) K/uL Eos # (Auto) 0.0 (0.0-0.7) K/uL Baso # (Auto) 0.0 (0.0-0.1) K/uL Nucleated RBC % 0.0 /100WBC Nucleated RBCs # 0 K/uL INR 0.96 APTT 26.9 (18.6-31.3) SEC D-Dimer, Quantitative (0.0-0.50) mg/L FEU ABG pH (7.35-7.45) ABG pCO2 (35-45) mmHG ABG pO2 (75-100) mmHG ABG HCO3 (22-26) mEq/L ABG Total CO2 ABG Base Excess (-2.0-2.0) Lactate 1.3 (0.20-2.00) mmol/L Sodium (136-145) mmol/L Potassium (3.5-5.1) mmol/L Chloride (98-107) mmol/L Carbon Dioxide (21.0-32.0) mmol/L BUN (7.0-18.0) mg/dL Creatinine (0.6-1.0) mg/dL Est Cr Clr Drug Dosing mL/min Estimated GFR (MDRD) ml/min Glucose (74-106) mg/dL Calcium (8.5-10.1) mg/dL Magnesium (1.8-2.4) mg/dL Total Bilirubin (0.2-1.0) mg/dL AST (15-37) IU/L ALT (14-63) IU/L Alkaline Phosphatase (46-116) U/L Troponin I (0.000-0.056) ng/mL C-Reactive Protein (0.00-0.90) mg/dL Total Protein (6.4-8.2) g/dL Albumin (3.4-5.0) g/dL Globulin (2.6-4.0) g/dL Albumin/Globulin Ratio (0.9-1.6) Urine Color Urine Appearance Urine pH (5.0-8.0) Ur Specific [place] (1.001-1.035) Urine Protein (NEGATIVE) mg/dL Urine Glucose (UA) (NEGATIVE) mg/dL Urine Ketones (NEGATIVE) mg/dL Urine Occult Blood (NEGATIVE) Urine Nitrite (NEGATIVE) Urine Bilirubin (NEGATIVE) Urine Urobilinogen (<2.0) EU/dL Ur Leukocyte Esterase (NEGATIVE) 08/22/20 08/22/20 08/22/20 Range/Units 18:38 18:38 18:45 WBC (4.0-11.0) K/uL RBC (4.30-5.90) M/uL Hgb (12.0-16.0) g/dL Hct (36.0-46.0) % MCV (80.0-98.0) fL MCH (27.0-32.0) pg MCHC (31.0-37.0) g/dL RDW Std Deviation (28.0-62.0) fl RDW Coeff of Etienne (11.0-15.0) % Plt Count (150-400) K/uL MPV (7.40-12.00) fL Neut % (Auto) (48.0-80.0) % Lymph % (Auto) (16.0-40.0) % [place] % (Auto) (0.0-15.0) % Eos % (Auto) (0.0-7.0) % Baso % (Auto) (0.0-1.5) % Neut # (Auto) (1.4-5.7) K/uL Lymph # (Auto) (0.6-2.4) K/uL [place] # (Auto) (0.0-0.8) K/uL Eos # (Auto) (0.0-0.7) K/uL Baso # (Auto) (0.0-0.1) K/uL Nucleated RBC % /100WBC Nucleated RBCs # K/uL INR APTT (18.6-31.3) SEC D-Dimer, Quantitative 0.80 H (0.0-0.50) mg/L FEU ABG pH 7.514 H (7.35-7.45) ABG pCO2 31 L (35-45) mmHG ABG pO2 52 L (75-100) mmHG ABG HCO3 25 (22-26) mEq/L ABG Total CO2 22.3 ABG Base Excess 2.6 H (-2.0-2.0) Lactate (0.20-2.00) mmol/L Sodium 136 (136-145) mmol/L Potassium 3.8 (3.5-5.1) mmol/L Chloride 99 (98-107) mmol/L Carbon Dioxide 27.1 (21.0-32.0) mmol/L BUN 10 (7.0-18.0) mg/dL Creatinine 0.9 (0.6-1.0) mg/dL Est Cr Clr Drug Dosing 66.90 mL/min Estimated GFR (MDRD) > 60.0 ml/min Glucose 104 (74-106) mg/dL Calcium 8.6 (8.5-10.1) mg/dL Magnesium 2.0 (1.8-2.4) mg/dL Total Bilirubin 0.6 (0.2-1.0) mg/dL AST 43 H (15-37) IU/L ALT 61 (14-63) IU/L Alkaline Phosphatase 87 (46-116) U/L Troponin I < 0.050 (0.000-0.056) ng/mL C-Reactive Protein 4.40 H (0.00-0.90) mg/dL Total Protein 7.8 (6.4-8.2) g/dL Albumin 3.7 (3.4-5.0) g/dL Globulin 4.1 H (2.6-4.0) g/dL Albumin/Globulin Ratio 0.9 (0.9-1.6) Urine Color Urine Appearance Urine pH (5.0-8.0) Ur Specific [place] (1.001-1.035) Urine Protein (NEGATIVE) mg/dL Urine Glucose (UA) (NEGATIVE) mg/dL Urine Ketones (NEGATIVE) mg/dL Urine Occult Blood (NEGATIVE) Urine Nitrite (NEGATIVE) Urine Bilirubin (NEGATIVE) Urine Urobilinogen (<2.0) EU/dL Ur Leukocyte Esterase (NEGATIVE) 08/22/20 Range/Units 18:53 WBC (4.0-11.0) K/uL RBC (4.30-5.90) M/uL Hgb (12.0-16.0) g/dL Hct (36.0-46.0) % MCV (80.0-98.0) fL MCH (27.0-32.0) pg MCHC (31.0-37.0) g/dL RDW Std Deviation (28.0-62.0) fl RDW Coeff of [place]ienne (11.0-15.0) % Plt Count (150-400) K/uL MPV (7.40-12.00) fL Neut % (Auto) (48.0-80.0) % Lymph % (Auto) (16.0-40.0) % [place] % (Auto) (0.0-15.0) % Eos % (Auto) (0.0-7.0) % Baso % (Auto) (0.0-1.5) % Neut # (Auto) (1.4-5.7) K/uL Lymph # (Auto) (0.6-2.4) K/uL [place] # (Auto) (0.0-0.8) K/uL Eos # (Auto) (0.0-0.7) K/uL Baso # (Auto) (0.0-0.1) K/uL Nucleated RBC % /100WBC Nucleated RBCs # K/uL INR APTT (18.6-31.3) SEC D-Dimer, Quantitative (0.0-0.50) mg/L FEU ABG pH (7.35-7.45) ABG pCO2 (35-45) mmHG ABG pO2 (75-100) mmHG ABG HCO3 (22-26) mEq/L ABG Total CO2 ABG Base Excess (-2.0-2.0) Lactate (0.20-2.00) mmol/L Sodium (136-145) mmol/L Potassium (3.5-5.1) mmol/L Chloride (98-107) mmol/L Carbon Dioxide (21.0-32.0) mmol/L BUN (7.0-18.0) mg/dL Creatinine (0.6-1.0) mg/dL Est Cr Clr Drug Dosing mL/min Estimated GFR (MDRD) ml/min Glucose (74-106) mg/dL Calcium (8.5-10.1) mg/dL Magnesium (1.8-2.4) mg/dL Total Bilirubin (0.2-1.0) mg/dL AST (15-37) IU/L ALT (14-63) IU/L Alkaline Phosphatase (46-116) U/L Troponin I (0.000-0.056) ng/mL C-Reactive Protein (0.00-0.90) mg/dL Total Protein (6.4-8.2) g/dL Albumin (3.4-5.0) g/dL Globulin (2.6-4.0) g/dL Albumin/Globulin Ratio (0.9-1.6) Urine Color YELLOW Urine Appearance CLEAR Urine pH 8.0 (5.0-8.0) Ur Specific [place] 1.015 (1.001-1.035) Urine Protein NEGATIVE (NEGATIVE) mg/dL Urine Glucose (UA) NEGATIVE (NEGATIVE) mg/dL Urine Ketones NEGATIVE (NEGATIVE) mg/dL Urine Occult Blood NEGATIVE (NEGATIVE) Urine Nitrite NEGATIVE (NEGATIVE) Urine Bilirubin NEGATIVE (NEGATIVE) Urine Urobilinogen 1.0 (<2.0) EU/dL Ur Leukocyte Esterase NEGATIVE (NEGATIVE) Meds: Medications Generic Name Dose Route Start Last Admin Trade Name Freq PRN Reason Stop Dose Admin Sodium Chloride 10 ml 08/22/20 18:25 08/22/20 18:45 Saline Flush FLUSH 10 ml ASDIRECTED PRN Administration Keep Vein Open Sodium Chloride 2.5 ml 08/22/20 18:25 08/22/20 18:45 Saline Flush FLUSH 2.5 ml ASDIRECTED PRN Administration Keep Vein Open Discontinued Medications Generic Name Dose Route Start Last Admin Trade Name Freq PRN Reason Stop Dose Admin Acetaminophen 1,000 mg 08/22/20 18:25 08/22/20 18:45 Tylenol Extra Strength PO 08/22/20 18:26 1,000 mg ONETIME ONE Administration Dexamethasone 10 mg 08/22/20 18:25 08/22/20 18:46 Dexamethasone IVPUSH 08/22/20 18:26 10 mg ONETIME ONE Administration Sodium Chloride 1,000 mls @ 999 mls/hr 08/22/20 18:23 08/22/20 18:47 Normal Saline IV 08/22/20 19:23 999 mls/hr STAT ONE Administration Ceftriaxone Sodium/Dextrose 2 50 mls @ 100 mls/hr 08/22/20 18:25 08/22/20 18:45 gm/ Premix IV 08/22/20 18:54 100 mls/hr ONETIME ONE Administration Ketorolac Tromethamine 15 mg 08/22/20 18:25 08/22/20 18:44 Toradol IVPUSH 08/22/20 18:26 15 mg ONETIME ONE Administration Prochlorperazine Edisylate 10 mg 08/22/20 18:25 08/22/20 18:44 Compazine IVPUSH 08/22/20 18:26 10 mg ONETIME ONE Administration Departure - Departure Time of Disposition: 20:18 Condition: Fair Sepsis Event Note (ED) - Focused Exam Vital Signs: Vital Signs Temp Pulse Resp BP Pulse Ox 08/22/20 19:28 84 18 139/84 94 L 08/22/20 19:01 86 130/55 L 93 L 08/22/20 18:24 36.7 C 99 20 140/55 L 96
[2020-08-22 19:10] LABS: BLOOD UREA NITROGEN,BUN 10 mg/dL (7.0-18.0); CARBON DIOXIDE,CO2 27.1 mmol/L (21.0-32.0); CHLORIDE,CL 99 mmol/L (98-107); GLUCOSE RANDOM 104 mg/dL (74-106); POTASSIUM,K 3.8 mmol/L (3.5-5.1); SODIUM,NA 136 mmol/L (136-145)
--- NOTE | 2020-08-22 20:02 | CR ---
INDICATION: Shortness of breath. Recent positive COVID test result. TECHNIQUE: Chest radiograph 1 view COMPARISON: 02/20/2019. FINDINGS: 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 and mediastinum: The heart silhouette is normal in size and morphology. The mediastinum is normal in appearance. Lungs and pleural spaces: Faint patchy opacities in the right and left lower lung zones, subtle change from February 2018. Upper lung zones remain clear. No sign of pleural effusion seen. No pneumothorax is identified. Bones and soft tissues: No significant findings. IMPRESSION: 1. Possible faint infiltrates at the bilateral lung bases, which may represent sequela of COVID-19 viral pneumonitis. Dictated by Devyn Powell MD @ Aug 22 2020 7:58PM Signed by Dr. Devyn Powell @ Aug 22 2020 8:00PM
[2020-08-22] MEDS ORDERED: Ondansetron 4 MG/2 ML SDV IVPUSH PRN (21:23)
[2020-08-22] MEDS ORDERED: Enoxaparin 40 MG/0.4 ML Syringe SUBCUT SCH (21:30)
[2020-08-22] MEDS ORDERED: Albuterol/Ipratropium 4 GM Inhalation Spray INH PRN (21:34)
--- NOTE | 2020-08-22 23:33 | PCM.HP.2 ---
H&P History of Present Illness - General Date of Service: 08/22/20 Admit Problem/Dx: Admission Diagnosis/Problem Admission Diagnosis/Problem Hypoxia - History of Present Illness Initial Comments - Free Text/Narative: This 55-year-old female with an unspecified immunocompromising illness that requires her to get pneumonia shots and flu vaccines every year who recently tested positive for COVID-19. The test was done 3 days back and she was called today. She is feeling very weak and fatigued, has a bad headache, myalgias, shortness of breath, and feels run down and dehydrated. Patient denies any fever, chills, change in vision, syncope or near syncope, any chest pain, back pain, abdominal pain, nausea, vomiting, diarrhea, constipation or dysuria. Has not noted any blood in urine or stool. Labs done in the ER were unremarkable except for elevated CRP and D-Dimer, CXR was done which show possible b/l infiltrated at the lung bases, which may represent sequel of covid_19 viral pneumonitis. Patient did have mild desaturation into upper 80s therefore we placed patient on nasal cannula oxygen. Patient was admitted for further management.. whole body Pain Score (Numeric/FACES): 8 - Related Data Allergies/Adverse Reactions: Allergies Allergy/AdvReac Type Severity Reaction Status Date / Time No Known Allergies Allergy Verified 08/22/20 18:34 Home Medications: Home Meds traZODone 1 - 2 tab PO BEDTIME 02/20/15 [History] Acetaminophen/Codeine [Tylenol with Codeine No.3 300MG/30MG] 1 tab PO Q4H PRN #20 tab 06/26/20 [Rx] Clindamycin HCl 300 mg PO TID 7 Days #21 capsule 06/26/20 [Rx] Estrogens, Conjugated [Premarin] 0.5 mg PO DAILY 06/26/20 [History] FLUoxetine HCl [Fluoxetine] 60 mg PO DAILY 06/26/20 [History] Penicillin V Potassium 500 mg PO BID 06/26/20 [History] Simvastatin 06/26/20 [History] Past Medical History - Past Health History Medical/Surgical History: Denies Medical/Surgical History HEENT History: Reports: Impaired Vision Other HEENT History: wears glasses 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 History: Reports: High Cholesterol Respiratory History: Reports: None 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 [employer] History: Reports: Musculoskeletal History: Reports: Fibromyalgia, Neck Pain, Chronic, Osteoporosis Neurological History: Reports: Seizure Psychiatric History: Reports: Anxiety, Depression - Infectious Disease History Infectious Disease History: Reports: Chicken Pox - Past Surgical History GI Surgical History: Reports: Bariatric Procedure, Cholecystectomy Female Surgical History: Reports: Dilitation & Evacuation, Other (See Below) Other Female Surgeries/Procedures: partial hysterectomy Neurological Surgical History: Reports: C-Spine Other Neurological Surgeries/Procedures: 5&6 spinal fusion Social & Family History - Family History Family Medical History: Noncontributory - Caffeine Use Caffeine Use: Reports: None - Recreational Drug Use Recreational Drug Use: No H&P Review of Systems - Review of Systems: Review Of Systems: See Below General: Reports: Malaise, Weakness, Fatigue, Decreased Appetite. Denies: Fever, Chills Pulmonary: Reports: Shortness of Breath, Cough, Sputum 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: Reports: Dyspnea on Exertion. Denies: Chest Pain, Palpitations, Orthopnea, Lightheadedness, Syncope Gastrointestinal: Reports: Anorexia, Decreased Appetite, Nausea. Denies: Abdominal Pain, Vomiting Genitourinary: Denies: Dysuria, Frequency, Burning Musculoskeletal: Denies: Neck Pain, Shoulder Pain, Arm Pain Skin: Denies: Cyanosis, Mottled, Pallor Psychiatric: Denies: Confusion, Depression, Anxiety Exam - Exam Exam: See Below - Vital Signs Vital Signs: Last Vital Signs Temp 36.7 C 08/22/20 18:24 Pulse 76 08/22/20 20:44 Resp 18 08/22/20 20:44 BP 131/73 08/22/20 20:44 Pulse Ox 92 L 08/22/20 20:44 Weight: 95.254 kg - Exam Quality Assessment: Supplemental Oxygen General: Alert, Oriented Neck: Supple, Trachea Midline Lungs: Decreased Breath Sounds, Crackles, Rales GI/Abdominal Exam: Normal Bowel Sounds, Soft, Non-Tender Back Exam: Normal Inspection - Patient Data Lab Results Last 24 hrs: Laboratory Results - last 24 hr 08/22/20 08/22/20 08/22/20 Range/Units 18:38 18:38 18:38 WBC 5.02 (4.0-11.0) K/uL RBC 4.51 (4.30-5.90) M/uL Hgb 13.6 (12.0-16.0) g/dL Hct 41.8 (36.0-46.0) % MCV 92.7 (80.0-98.0) fL MCH 30.2 (27.0-32.0) pg MCHC 32.5 (31.0-37.0) g/dL RDW Std Deviation 45.4 (28.0-62.0) fl RDW Coeff of Etienne 13 (11.0-15.0) % Plt Count 179 (150-400) K/uL MPV 10.00 (7.40-12.00) fL Neut % (Auto) 68.1 (48.0-80.0) % Lymph % (Auto) 25.7 (16.0-40.0) % [place] % (Auto) 5.6 (0.0-15.0) % Eos % (Auto) 0.2 (0.0-7.0) % Baso % (Auto) 0.4 (0.0-1.5) % Neut # (Auto) 3.4 (1.4-5.7) K/uL Lymph # (Auto) 1.3 (0.6-2.4) K/uL [place] # (Auto) 0.3 (0.0-0.8) K/uL Eos # (Auto) 0.0 (0.0-0.7) K/uL Baso # (Auto) 0.0 (0.0-0.1) K/uL Nucleated RBC % 0.0 /100WBC Nucleated RBCs # 0 K/uL INR 0.96 APTT 26.9 (18.6-31.3) SEC D-Dimer, Quantitative (0.0-0.50) mg/L FEU ABG pH (7.35-7.45) ABG pCO2 (35-45) mmHG ABG pO2 (75-100) mmHG ABG HCO3 (22-26) mEq/L ABG Total CO2 ABG Base Excess (-2.0-2.0) Lactate 1.3 (0.20-2.00) mmol/L Sodium (136-145) mmol/L Potassium (3.5-5.1) mmol/L Chloride (98-107) mmol/L Carbon Dioxide (21.0-32.0) mmol/L BUN (7.0-18.0) mg/dL Creatinine (0.6-1.0) mg/dL Est Cr Clr Drug Dosing mL/min Estimated GFR (MDRD) ml/min Glucose (74-106) mg/dL Calcium (8.5-10.1) mg/dL Magnesium (1.8-2.4) mg/dL Total Bilirubin (0.2-1.0) mg/dL AST (15-37) IU/L ALT (14-63) IU/L Alkaline Phosphatase (46-116) U/L Troponin I (0.000-0.056) ng/mL C-Reactive Protein (0.00-0.90) mg/dL Total Protein (6.4-8.2) g/dL Albumin (3.4-5.0) g/dL Globulin (2.6-4.0) g/dL Albumin/Globulin Ratio (0.9-1.6) Urine Color Urine Appearance Urine pH (5.0-8.0) Ur Specific Bascom (1.001-1.035) Urine Protein (NEGATIVE) mg/dL Urine Glucose (UA) (NEGATIVE) mg/dL Urine Ketones (NEGATIVE) mg/dL Urine Occult Blood (NEGATIVE) Urine Nitrite (NEGATIVE) Urine Bilirubin (NEGATIVE) Urine Urobilinogen (<2.0) EU/dL Ur Leukocyte Esterase (NEGATIVE) SARS-CoV-2 RNA (NUSRAT) (NEGATIVE) 08/22/20 08/22/20 08/22/20 Range/Units 18:38 18:38 18:45 WBC (4.0-11.0) K/uL RBC (4.30-5.90) M/uL Hgb (12.0-16.0) g/dL Hct (36.0-46.0) % MCV (80.0-98.0) fL MCH (27.0-32.0) pg MCHC (31.0-37.0) g/dL RDW Std Deviation (28.0-62.0) fl RDW Coeff of Etienne (11.0-15.0) % Plt Count (150-400) K/uL MPV (7.40-12.00) fL Neut % (Auto) (48.0-80.0) % Lymph % (Auto) (16.0-40.0) % [place] % (Auto) (0.0-15.0) % Eos % (Auto) (0.0-7.0) % Baso % (Auto) (0.0-1.5) % Neut # (Auto) (1.4-5.7) K/uL Lymph # (Auto) (0.6-2.4) K/uL [place] # (Auto) (0.0-0.8) K/uL Eos # (Auto) (0.0-0.7) K/uL Baso # (Auto) (0.0-0.1) K/uL Nucleated RBC % /100WBC Nucleated RBCs # K/uL INR APTT (18.6-31.3) SEC D-Dimer, Quantitative 0.80 H (0.0-0.50) mg/L FEU ABG pH 7.514 H (7.35-7.45) ABG pCO2 31 L (35-45) mmHG ABG pO2 52 L (75-100) mmHG ABG HCO3 25 (22-26) mEq/L ABG Total CO2 22.3 ABG Base Excess 2.6 H (-2.0-2.0) Lactate (0.20-2.00) mmol/L Sodium 136 (136-145) mmol/L Potassium 3.8 (3.5-5.1) mmol/L Chloride 99 (98-107) mmol/L Carbon Dioxide 27.1 (21.0-32.0) mmol/L BUN 10 (7.0-18.0) mg/dL Creatinine 0.9 (0.6-1.0) mg/dL Est Cr Clr Drug Dosing 66.90 mL/min Estimated GFR (MDRD) > 60.0 ml/min Glucose 104 (74-106) mg/dL Calcium 8.6 (8.5-10.1) mg/dL Magnesium 2.0 (1.8-2.4) mg/dL Total Bilirubin 0.6 (0.2-1.0) mg/dL AST 43 H (15-37) IU/L ALT 61 (14-63) IU/L Alkaline Phosphatase 87 (46-116) U/L Troponin I < 0.050 (0.000-0.056) ng/mL C-Reactive Protein 4.40 H (0.00-0.90) mg/dL Total Protein 7.8 (6.4-8.2) g/dL Albumin 3.7 (3.4-5.0) g/dL Globulin 4.1 H (2.6-4.0) g/dL Albumin/Globulin Ratio 0.9 (0.9-1.6) Urine Color Urine Appearance Urine pH (5.0-8.0) Ur Specific Bascom (1.001-1.035) Urine Protein (NEGATIVE) mg/dL Urine Glucose (UA) (NEGATIVE) mg/dL Urine Ketones (NEGATIVE) mg/dL Urine Occult Blood (NEGATIVE) Urine Nitrite (NEGATIVE) Urine Bilirubin (NEGATIVE) Urine Urobilinogen (<2.0) EU/dL Ur Leukocyte Esterase (NEGATIVE) SARS-CoV-2 RNA (NUSRAT) (NEGATIVE) 08/22/20 08/22/20 Range/Units 18:53 20:35 WBC (4.0-11.0) K/uL RBC (4.30-5.90) M/uL Hgb (12.0-16.0) g/dL Hct (36.0-46.0) % MCV (80.0-98.0) fL MCH (27.0-32.0) pg MCHC (31.0-37.0) g/dL RDW Std Deviation (28.0-62.0) fl RDW Coeff of Etienne (11.0-15.0) % Plt Count (150-400) K/uL MPV (7.40-12.00) fL Neut % (Auto) (48.0-80.0) % Lymph % (Auto) (16.0-40.0) % [place] % (Auto) (0.0-15.0) % Eos % (Auto) (0.0-7.0) % Baso % (Auto) (0.0-1.5) % Neut # (Auto) (1.4-5.7) K/uL Lymph # (Auto) (0.6-2.4) K/uL [place] # (Auto) (0.0-0.8) K/uL Eos # (Auto) (0.0-0.7) K/uL Baso # (Auto) (0.0-0.1) K/uL Nucleated RBC % /100WBC Nucleated RBCs # K/uL INR APTT (18.6-31.3) SEC D-Dimer, Quantitative (0.0-0.50) mg/L FEU ABG pH (7.35-7.45) ABG pCO2 (35-45) mmHG ABG pO2 (75-100) mmHG ABG HCO3 (22-26) mEq/L ABG Total CO2 ABG Base Excess (-2.0-2.0) Lactate (0.20-2.00) mmol/L Sodium (136-145) mmol/L Potassium (3.5-5.1) mmol/L Chloride (98-107) mmol/L Carbon Dioxide (21.0-32.0) mmol/L BUN (7.0-18.0) mg/dL Creatinine (0.6-1.0) mg/dL Est Cr Clr Drug Dosing mL/min Estimated GFR (MDRD) ml/min Glucose (74-106) mg/dL Calcium (8.5-10.1) mg/dL Magnesium (1.8-2.4) mg/dL Total Bilirubin (0.2-1.0) mg/dL AST (15-37) IU/L ALT (14-63) IU/L Alkaline Phosphatase (46-116) U/L Troponin I (0.000-0.056) ng/mL C-Reactive Protein (0.00-0.90) mg/dL Total Protein (6.4-8.2) g/dL Albumin (3.4-5.0) g/dL Globulin (2.6-4.0) g/dL Albumin/Globulin Ratio (0.9-1.6) Urine Color YELLOW Urine Appearance CLEAR Urine pH 8.0 (5.0-8.0) Ur Specific Bascom 1.015 (1.001-1.035) Urine Protein NEGATIVE (NEGATIVE) mg/dL Urine Glucose (UA) NEGATIVE (NEGATIVE) mg/dL Urine Ketones NEGATIVE (NEGATIVE) mg/dL Urine Occult Blood NEGATIVE (NEGATIVE) Urine Nitrite NEGATIVE (NEGATIVE) Urine Bilirubin NEGATIVE (NEGATIVE) Urine Urobilinogen 1.0 (<2.0) EU/dL Ur Leukocyte Esterase NEGATIVE (NEGATIVE) SARS-CoV-2 RNA (NUSRAT) POSITIVE H (NEGATIVE) Result Diagrams: 08/22/20 18:38 08/22/20 18:38 Jose Results Last 24 hrs: Microbiology 08/22/20 19:20 Anaerobic Blood Culture - Final Blood - Venous - Lab Draw Sepsis Event Note - Evaluation Sepsis Screening Result: No Definite Risk - Focused Exam Vital Signs: Vital Signs Temp Pulse Resp BP Pulse Ox 08/22/20 20:44 76 18 131/73 92 L 08/22/20 19:28 84 18 139/84 94 L 08/22/20 19:01 86 130/55 L 93 L 08/22/20 18:24 36.7 C 99 20 140/55 L 96 - Problem List (1) COVID-19 SNOMED Code(s): 501422230 ICD Code: U07.1 - COVID-19 Status: Acute Current Visit: Yes (2) Hypoxia SNOMED Code(s): 817230974 ICD Code: R09.02 - HYPOXEMIA Status: Acute Current Visit: Yes Problem List Initiated/Reviewed/Updated: Yes Orders Last 24hrs: Active Orders 24 hr Category Date Time Status Admission Status [Patient Status] [ADT] Stat ADT 08/22/20 20:20 Active Ambulate [RC] ASDIRECTED Care 08/22/20 18:26 Active Ambulate [RC] ASDIRECTED Care 08/22/20 21:23 Active Antiembolic Devices [RC] PER UNIT ROUTINE Care 08/22/20 21:25 Active Oxygen Therapy [RC] PRN Care 08/22/20 21:23 Active Pulse Oximetry [RC] ASDIRECTED Care 08/22/20 18:26 Active Pulse Oximetry [RC] PRN Care 08/22/20 21:24 Active RT Post Treatment Assessment [RC] Click to Edit Care 08/22/20 21:34 Active RT Pre-Treatment Assessment [RC] Click to Edit Care 08/22/20 21:34 Active Telemetry Monitoring [Cardiac Monitoring] [RC] Q8H Care 08/22/20 22:28 Active VTE/DVT Education [RC] PER UNIT ROUTINE Care 08/22/20 21:23 Active Vital Signs [RC] Q4H Care 08/22/20 21:23 Active Regular Diet [DIET] Diet 08/22/20 Breakfast Active BMP [BASIC METABOLIC PANEL,BMP] [CHEM] AM Lab 08/23/20 05:11 Ordered CBC WITH AUTO DIFF [HEME] AM Lab 08/23/20 05:11 Ordered CULTURE BLOOD [BC] Stat Lab 08/22/20 19:05 Received CULTURE BLOOD [BC] Stat Lab 08/22/20 19:20 Results MAGNESIUM [CHEM] AM Lab 08/23/20 05:11 Ordered PHOSPHORUS [CHEM] AM Lab 08/23/20 05:11 Ordered Acetaminophen [TylenoL] Med 08/22/20 21:23 Active 650 mg PO Q4H PRN Albuterol/Ipratropium [Combivent Respimat] Med 08/22/20 21:34 Active See Dose Instructions INH Q4H PRN Enoxaparin [Lovenox] Med 08/22/20 21:45 Active 40 mg SUBCUT Q12H Ondansetron [Zofran] Med 08/22/20 21:23 Active 4 mg IVPUSH Q4H PRN Pantoprazole [ProTONIX IV] Med 08/23/20 09:00 Active 40 mg IV DAILY Sodium Chloride 0.9% [Saline Flush] Med 08/22/20 18:25 Active 10 ml FLUSH ASDIRECTED PRN Sodium Chloride 0.9% [Saline Flush] Med 08/22/20 18:25 Active 2.5 ml FLUSH ASDIRECTED PRN dexAMETHasone Med 08/23/20 09:00 Active 6 mg PO DAILY Blood Culture x2 Reflex Set [OM.PC] Stat Oth 08/22/20 18:27 Ordered Saline Lock Insert [OM.PC] Stat Oth 08/22/20 18:26 Ordered Sequential Compression Device [OM.PC] Per Unit Routine Oth 08/22/20 21:24 Ordered Resuscitation Status Routine Resus Stat 08/22/20 21:23 Ordered Medication Orders Acetaminophen (Tylenol) 650 mg PO Q4H PRN PRN Reason: Pain (Mild 1-3)/fever Albuterol/Ipratropium (Combivent Respimat) 0 gm INH Q4H PRN PRN Reason: Dyspnea Dexamethasone (Dexamethasone) 6 mg PO DAILY REMIGIO Enoxaparin Sodium (Lovenox) 40 mg SUBCUT Q12H REMIGIO Ondansetron HCl (Zofran) 4 mg IVPUSH Q4H PRN PRN Reason: Nausea/Vomiting Pantoprazole Sodium (Protonix Iv) 40 mg IV DAILY REMIGIO Sodium Chloride (Saline Flush) 10 ml FLUSH ASDIRECTED PRN PRN Reason: Keep Vein Open Last Admin: 08/22/20 18:45 Dose: 10 ml Documented by: IVÁN Sodium Chloride (Saline Flush) 2.5 ml FLUSH ASDIRECTED PRN PRN Reason: Keep Vein Open Last Admin: 08/22/20 18:45 Dose: 2.5 ml Documented by: IVÁN Assessment/Plan Comment:: 55 y/o F admitted for Acute hypoxic respiratory failure secondary to COVID cont oxygen as needed, cont dexamethasone, Remdesivir and BID Lovenox, Combivent, Mucinex. Patient given fact sheet and explain emergency use FDA authorization of Remdesivir. She was explained side effects including hepatitis and anaphylaxis and consents to treatment.
[2020-08-23] MEDS ORDERED: REMDESIVIR 200 MG in Sodium Chloride 0.9% 250 ML IV ONE (00:12)
[2020-08-23] MEDS: Enoxaparin 40 MG/0.4 ML Syringe SUBCUT SCH ×3 (00:13→21:27)
[2020-08-23] MEDS ORDERED: guaiFENesin 600 MG Tab.ER PO PRN (00:14)
[2020-08-23 05:43] LABS: BLOOD UREA NITROGEN,BUN 12 mg/dL (7.0-18.0); CARBON DIOXIDE,CO2 27.5 mmol/L (21.0-32.0); CHLORIDE,CL 103 mmol/L (98-107); GLUCOSE RANDOM 159 mg/dL (74-106); POTASSIUM,K 4.2 mmol/L (3.5-5.1); SODIUM,NA 139 mmol/L (136-145)
--- NOTE | 2020-08-23 08:52 | PCM.PN ---
<Darek Cook - Last Filed: 08/23/20 11:31> - General Info Date of Service: 08/23/20 Subjective Update: Reports feeling better this AM. Complains of mild cough. Denies fevers, chills, nausea, vomiting, diarrhea or SOB. - Patient Data Vitals - Most Recent: Last Vital Signs Temp 36.2 C 08/23/20 03:33 Pulse 60 08/23/20 03:33 Resp 17 08/23/20 03:33 BP 101/55 L 08/23/20 03:33 Pulse Ox 96 08/23/20 03:33 Weight - Most Recent: 93.485 kg I&O - Last 24 Hours: Intake & Output 08/22/20 08/23/20 08/23/20 22:59 06:59 14:59 Intake Total 1250 Output Total 900 Balance 350 Lab Results Last 24 Hours: Laboratory Results - last 24 hr 08/22/20 08/22/20 08/22/20 Range/Units 18:38 18:38 18:38 WBC 5.02 (4.0-11.0) K/uL RBC 4.51 (4.30-5.90) M/uL Hgb 13.6 (12.0-16.0) g/dL Hct 41.8 (36.0-46.0) % MCV 92.7 (80.0-98.0) fL MCH 30.2 (27.0-32.0) pg MCHC 32.5 (31.0-37.0) g/dL RDW Std Deviation 45.4 (28.0-62.0) fl RDW Coeff of Etienne 13 (11.0-15.0) % Plt Count 179 (150-400) K/uL MPV 10.00 (7.40-12.00) fL Neut % (Auto) 68.1 (48.0-80.0) % Lymph % (Auto) 25.7 (16.0-40.0) % Nolan % (Auto) 5.6 (0.0-15.0) % Eos % (Auto) 0.2 (0.0-7.0) % Baso % (Auto) 0.4 (0.0-1.5) % Neut # (Auto) 3.4 (1.4-5.7) K/uL Lymph # (Auto) 1.3 (0.6-2.4) K/uL Nolan # (Auto) 0.3 (0.0-0.8) K/uL Eos # (Auto) 0.0 (0.0-0.7) K/uL Baso # (Auto) 0.0 (0.0-0.1) K/uL Nucleated RBC % 0.0 /100WBC Nucleated RBCs # 0 K/uL INR 0.96 APTT 26.9 (18.6-31.3) SEC D-Dimer, Quantitative (0.0-0.50) mg/L FEU ABG pH (7.35-7.45) ABG pCO2 (35-45) mmHG ABG pO2 (75-100) mmHG ABG HCO3 (22-26) mEq/L ABG Total CO2 ABG Base Excess (-2.0-2.0) Lactate 1.3 (0.20-2.00) mmol/L Sodium (136-145) mmol/L Potassium (3.5-5.1) mmol/L Chloride (98-107) mmol/L Carbon Dioxide (21.0-32.0) mmol/L BUN (7.0-18.0) mg/dL Creatinine (0.6-1.0) mg/dL Est Cr Clr Drug Dosing mL/min Estimated GFR (MDRD) ml/min Glucose (74-106) mg/dL Calcium (8.5-10.1) mg/dL Phosphorus (2.6-4.7) mg/dL Magnesium (1.8-2.4) mg/dL Total Bilirubin (0.2-1.0) mg/dL AST (15-37) IU/L ALT (14-63) IU/L Alkaline Phosphatase (46-116) U/L Troponin I (0.000-0.056) ng/mL C-Reactive Protein (0.00-0.90) mg/dL Total Protein (6.4-8.2) g/dL Albumin (3.4-5.0) g/dL Globulin (2.6-4.0) g/dL Albumin/Globulin Ratio (0.9-1.6) Urine Color Urine Appearance Urine pH (5.0-8.0) Ur Specific [place] (1.001-1.035) Urine Protein (NEGATIVE) mg/dL Urine Glucose (UA) (NEGATIVE) mg/dL Urine Ketones (NEGATIVE) mg/dL Urine Occult Blood (NEGATIVE) Urine Nitrite (NEGATIVE) Urine Bilirubin (NEGATIVE) Urine Urobilinogen (<2.0) EU/dL Ur Leukocyte Esterase (NEGATIVE) SARS-CoV-2 RNA (NUSRAT) (NEGATIVE) 08/22/20 08/22/20 08/22/20 Range/Units 18:38 18:38 18:45 WBC (4.0-11.0) K/uL RBC (4.30-5.90) M/uL Hgb (12.0-16.0) g/dL Hct (36.0-46.0) % MCV (80.0-98.0) fL MCH (27.0-32.0) pg MCHC (31.0-37.0) g/dL RDW Std Deviation (28.0-62.0) fl RDW Coeff of Etienne (11.0-15.0) % Plt Count (150-400) K/uL MPV (7.40-12.00) fL Neut % (Auto) (48.0-80.0) % Lymph % (Auto) (16.0-40.0) % Nolan % (Auto) (0.0-15.0) % Eos % (Auto) (0.0-7.0) % Baso % (Auto) (0.0-1.5) % Neut # (Auto) (1.4-5.7) K/uL Lymph # (Auto) (0.6-2.4) K/uL Nolan # (Auto) (0.0-0.8) K/uL Eos # (Auto) (0.0-0.7) K/uL Baso # (Auto) (0.0-0.1) K/uL Nucleated RBC % /100WBC Nucleated RBCs # K/uL INR APTT (18.6-31.3) SEC D-Dimer, Quantitative 0.80 H (0.0-0.50) mg/L FEU ABG pH 7.514 H (7.35-7.45) ABG pCO2 31 L (35-45) mmHG ABG pO2 52 L (75-100) mmHG ABG HCO3 25 (22-26) mEq/L ABG Total CO2 22.3 ABG Base Excess 2.6 H (-2.0-2.0) Lactate (0.20-2.00) mmol/L Sodium 136 (136-145) mmol/L Potassium 3.8 (3.5-5.1) mmol/L Chloride 99 (98-107) mmol/L Carbon Dioxide 27.1 (21.0-32.0) mmol/L BUN 10 (7.0-18.0) mg/dL Creatinine 0.9 (0.6-1.0) mg/dL Est Cr Clr Drug Dosing 66.90 mL/min Estimated GFR (MDRD) > 60.0 ml/min Glucose 104 (74-106) mg/dL Calcium 8.6 (8.5-10.1) mg/dL Phosphorus (2.6-4.7) mg/dL Magnesium 2.0 (1.8-2.4) mg/dL Total Bilirubin 0.6 (0.2-1.0) mg/dL AST 43 H (15-37) IU/L ALT 61 (14-63) IU/L Alkaline Phosphatase 87 (46-116) U/L Troponin I < 0.050 (0.000-0.056) ng/mL C-Reactive Protein 4.40 H (0.00-0.90) mg/dL Total Protein 7.8 (6.4-8.2) g/dL Albumin 3.7 (3.4-5.0) g/dL Globulin 4.1 H (2.6-4.0) g/dL Albumin/Globulin Ratio 0.9 (0.9-1.6) Urine Color Urine Appearance Urine pH (5.0-8.0) Ur Specific [place] (1.001-1.035) Urine Protein (NEGATIVE) mg/dL Urine Glucose (UA) (NEGATIVE) mg/dL Urine Ketones (NEGATIVE) mg/dL Urine Occult Blood (NEGATIVE) Urine Nitrite (NEGATIVE) Urine Bilirubin (NEGATIVE) Urine Urobilinogen (<2.0) EU/dL Ur Leukocyte Esterase (NEGATIVE) SARS-CoV-2 RNA (NUSRAT) (NEGATIVE) 08/22/20 08/22/20 08/23/20 Range/Units 18:53 20:35 04:58 WBC 3.84 L (4.0-11.0) K/uL RBC 4.09 L (4.30-5.90) M/uL Hgb 12.2 (12.0-16.0) g/dL Hct 37.8 (36.0-46.0) % MCV 92.4 (80.0-98.0) fL MCH 29.8 (27.0-32.0) pg MCHC 32.3 (31.0-37.0) g/dL RDW Std Deviation 43.8 (28.0-62.0) fl RDW Coeff of Etienne 13 (11.0-15.0) % Plt Count 158 (150-400) K/uL MPV 9.60 (7.40-12.00) fL Neut % (Auto) 72.9 (48.0-80.0) % Lymph % (Auto) 19.5 (16.0-40.0) % Nolan % (Auto) 7.3 (0.0-15.0) % Eos % (Auto) 0.0 (0.0-7.0) % Baso % (Auto) 0.3 (0.0-1.5) % Neut # (Auto) 2.8 (1.4-5.7) K/uL Lymph # (Auto) 0.8 (0.6-2.4) K/uL Nolan # (Auto) 0.3 (0.0-0.8) K/uL Eos # (Auto) 0.0 (0.0-0.7) K/uL Baso # (Auto) 0.0 (0.0-0.1) K/uL Nucleated RBC % 0.0 /100WBC Nucleated RBCs # 0 K/uL INR APTT (18.6-31.3) SEC D-Dimer, Quantitative (0.0-0.50) mg/L FEU ABG pH (7.35-7.45) ABG pCO2 (35-45) mmHG ABG pO2 (75-100) mmHG ABG HCO3 (22-26) mEq/L ABG Total CO2 ABG Base Excess (-2.0-2.0) Lactate (0.20-2.00) mmol/L Sodium (136-145) mmol/L Potassium (3.5-5.1) mmol/L Chloride (98-107) mmol/L Carbon Dioxide (21.0-32.0) mmol/L BUN (7.0-18.0) mg/dL Creatinine (0.6-1.0) mg/dL Est Cr Clr Drug Dosing mL/min Estimated GFR (MDRD) ml/min Glucose (74-106) mg/dL Calcium (8.5-10.1) mg/dL Phosphorus (2.6-4.7) mg/dL Magnesium (1.8-2.4) mg/dL Total Bilirubin (0.2-1.0) mg/dL AST (15-37) IU/L ALT (14-63) IU/L Alkaline Phosphatase (46-116) U/L Troponin I (0.000-0.056) ng/mL C-Reactive Protein (0.00-0.90) mg/dL Total Protein (6.4-8.2) g/dL Albumin (3.4-5.0) g/dL Globulin (2.6-4.0) g/dL Albumin/Globulin Ratio (0.9-1.6) Urine Color YELLOW Urine Appearance CLEAR Urine pH 8.0 (5.0-8.0) Ur Specific [place] 1.015 (1.001-1.035) Urine Protein NEGATIVE (NEGATIVE) mg/dL Urine Glucose (UA) NEGATIVE (NEGATIVE) mg/dL Urine Ketones NEGATIVE (NEGATIVE) mg/dL Urine Occult Blood NEGATIVE (NEGATIVE) Urine Nitrite NEGATIVE (NEGATIVE) Urine Bilirubin NEGATIVE (NEGATIVE) Urine Urobilinogen 1.0 (<2.0) EU/dL Ur Leukocyte Esterase NEGATIVE (NEGATIVE) SARS-CoV-2 RNA (NUSRAT) POSITIVE H (NEGATIVE) 08/23/20 Range/Units 04:58 WBC (4.0-11.0) K/uL RBC (4.30-5.90) M/uL Hgb (12.0-16.0) g/dL Hct (36.0-46.0) % MCV (80.0-98.0) fL MCH (27.0-32.0) pg MCHC (31.0-37.0) g/dL RDW Std Deviation (28.0-62.0) fl RDW Coeff of Etienne (11.0-15.0) % Plt Count (150-400) K/uL MPV (7.40-12.00) fL Neut % (Auto) (48.0-80.0) % Lymph % (Auto) (16.0-40.0) % Nolan % (Auto) (0.0-15.0) % Eos % (Auto) (0.0-7.0) % Baso % (Auto) (0.0-1.5) % Neut # (Auto) (1.4-5.7) K/uL Lymph # (Auto) (0.6-2.4) K/uL Nolan # (Auto) (0.0-0.8) K/uL Eos # (Auto) (0.0-0.7) K/uL Baso # (Auto) (0.0-0.1) K/uL Nucleated RBC % /100WBC Nucleated RBCs # K/uL INR APTT (18.6-31.3) SEC D-Dimer, Quantitative (0.0-0.50) mg/L FEU ABG pH (7.35-7.45) ABG pCO2 (35-45) mmHG ABG pO2 (75-100) mmHG ABG HCO3 (22-26) mEq/L ABG Total CO2 ABG Base Excess (-2.0-2.0) Lactate (0.20-2.00) mmol/L Sodium 139 (136-145) mmol/L Potassium 4.2 (3.5-5.1) mmol/L Chloride 103 (98-107) mmol/L Carbon Dioxide 27.5 (21.0-32.0) mmol/L BUN 12 (7.0-18.0) mg/dL Creatinine 0.7 (0.6-1.0) mg/dL Est Cr Clr Drug Dosing 86.01 mL/min Estimated GFR (MDRD) > 60.0 ml/min Glucose 159 H (74-106) mg/dL Calcium 8.0 L (8.5-10.1) mg/dL Phosphorus 3.2 (2.6-4.7) mg/dL Magnesium 2.2 (1.8-2.4) mg/dL Total Bilirubin 0.3 (0.2-1.0) mg/dL AST 104 H (15-37) IU/L ALT 116 H (14-63) IU/L Alkaline Phosphatase 85 (46-116) U/L Troponin I (0.000-0.056) ng/mL C-Reactive Protein (0.00-0.90) mg/dL Total Protein 6.6 (6.4-8.2) g/dL Albumin 3.0 L (3.4-5.0) g/dL Globulin 3.6 (2.6-4.0) g/dL Albumin/Globulin Ratio 0.8 L (0.9-1.6) Urine Color Urine Appearance Urine pH (5.0-8.0) Ur Specific [place] (1.001-1.035) Urine Protein (NEGATIVE) mg/dL Urine Glucose (UA) (NEGATIVE) mg/dL Urine Ketones (NEGATIVE) mg/dL Urine Occult Blood (NEGATIVE) Urine Nitrite (NEGATIVE) Urine Bilirubin (NEGATIVE) Urine Urobilinogen (<2.0) EU/dL Ur Leukocyte Esterase (NEGATIVE) SARS-CoV-2 RNA (NUSRAT) (NEGATIVE) Jose Results Last 24 Hours: Microbiology 08/22/20 19:20 Anaerobic Blood Culture - Final Blood - Venous - Lab Draw Med Orders - Current: Current Medications Acetaminophen (Tylenol) 650 mg PO Q4H PRN PRN Reason: Pain (Mild 1-3)/fever Albuterol/Ipratropium (Combivent Respimat) 0 gm INH Q4H PRN PRN Reason: Dyspnea Dexamethasone (Dexamethasone) 6 mg PO DAILY [facility] Enoxaparin Sodium (Lovenox) 40 mg SUBCUT Q12H [facility] Last Admin: 08/23/20 00:13 Dose: 40 mg Documented by: Guaifenesin (Mucinex) 600 mg PO TID PRN PRN Reason: Cough Remdesivir 100 mg/ Sodium (Chloride) 100 mls @ 100 mls/hr IV Q24H [facility] Stop: 08/26/20 13:59 Ondansetron HCl (Zofran) 4 mg IVPUSH Q4H PRN PRN Reason: Nausea/Vomiting Pantoprazole Sodium (Protonix Iv) 40 mg IV DAILY [facility] Sodium Chloride (Saline Flush) 10 ml FLUSH ASDIRECTED PRN PRN Reason: Keep Vein Open Last Admin: 08/22/20 18:45 Dose: 10 ml Documented by: Sodium Chloride (Saline Flush) 2.5 ml FLUSH ASDIRECTED PRN PRN Reason: Keep Vein Open Last Admin: 10/18/20 18:45 Dose: 2.5 ml Documented by: Discontinued Medications Acetaminophen (Tylenol Extra Strength) 1,000 mg PO ONETIME ONE Stop: 08/22/20 18:26 Last Admin: 08/22/20 18:45 Dose: 1,000 mg Documented by: Dexamethasone (Dexamethasone) 10 mg IVPUSH ONETIME ONE Stop: 08/22/20 18:26 Last Admin: 08/22/20 18:46 Dose: 10 mg Documented by: Enoxaparin Sodium (Lovenox) 40 mg SUBCUT Q24H REMIGIO Last Admin: 08/23/20 02:02 Dose: Not Given Documented by: Sodium Chloride (Normal Saline) 1,000 mls @ 999 mls/hr IV STAT ONE Stop: 08/22/20 19:23 Last Admin: 08/22/20 18:47 Dose: 999 mls/hr Documented by: Ceftriaxone Sodium/Dextrose 2 (gm/ Premix) 50 mls @ 100 mls/hr IV ONETIME ONE Stop: 08/22/20 18:54 Last Admin: 08/22/20 18:45 Dose: 100 mls/hr Documented by: Remdesivir 200 mg/ Sodium (Chloride) 250 mls @ 250 mls/hr IV ONETIME ONE Stop: 08/23/20 00:13 Last Admin: 08/23/20 01:52 Dose: 250 mls/hr Documented by: Ketorolac Tromethamine (Toradol) 15 mg IVPUSH ONETIME ONE Stop: 08/22/20 18:26 Last Admin: 08/22/20 18:44 Dose: 15 mg Documented by: Prochlorperazine Edisylate (Compazine) 10 mg IVPUSH ONETIME ONE Stop: 08/22/20 18:26 Last Admin: 08/22/20 18:44 Dose: 10 mg Documented by: - Exam General: Alert, Oriented, Cooperative, No Acute Distress Lungs: Other (shallow breath sounds, mild rales b/l) 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: Regular Rate, Regular Rhythm GI/Abdominal Exam: Normal Bowel Sounds, Soft, Non-Tender, No Distention Extremities: Normal Inspection, No Pedal Edema Sepsis Event Note - Evaluation Sepsis Screening Result: No Definite Risk - Focused Exam Vital Signs: Vital Signs Temp Pulse Resp BP Pulse Ox Pulse Ox 10/19/20 03:33 36.2 C 60 17 101/55 L 96 08/23/20 00:23 94 L 94 L 08/23/20 00:00 36.1 C 72 18 110/65 93 L - Problem List Review Problem List Initiated/Reviewed/Updated: Yes - My Orders Last 24 Hours: My Active Orders 08/24/20 05:11 CBC WITH AUTO DIFF [HEME] AM COMPREHENSIVE METABOLIC PN,CMP [CHEM] AM - Plan Plan:: Assessment and Plan: 1. Acute hypoxic respiratory failure secondary to COVID-19: - Continue supplemental O2 prn to maintain O2 sat > 92%, combivent q4 REMIGIO, guaifenesin, PO dexamethasone 6 mg qd and IV Remdesivir. Will also start IV levaquin. Will encourage ambulation today and check ambulatory O2 sats. - CXR showed infiltrates in lung bases b/l. - Blood cultures pending. 2. Transaminitis: - Minor elevation in ALT and AST today likely secondary to Remdesivir. Will continue to trend liver enzymes. 3. DVT prophylaxis: - Lovenox 40 mg BID. 4. Past medical history of anxiety, depression, seizure, HLD, fibromyalgia and gastric bypass surgery: - Will continue home medications. <Batool Jones - Last Filed: 08/29/20 23:18> - Patient Data Vitals - Most Recent: Last Vital Signs Temp 35.9 C L 08/27/20 11:47 Pulse 55 L 08/27/20 11:47 Resp 16 08/27/20 11:47 BP 110/68 08/27/20 11:47 Pulse Ox 91 L 08/27/20 11:47 Med Orders - Current: Current Medications Discontinued Medications Acetaminophen (Tylenol Extra Strength) 1,000 mg PO ONETIME ONE Stop: 08/22/20 18:26 Last Admin: 08/22/20 18:45 Dose: 1,000 mg Documented by: Acetaminophen (Tylenol) 650 mg PO Q4H PRN PRN Reason: Pain (Mild 1-3)/fever Last Admin: 08/26/20 21:03 Dose: 650 mg Documented by: Albuterol/Ipratropium (Combivent Respimat) 0 gm INH Q4H PRN PRN Reason: Dyspnea Albuterol/Ipratropium (Combivent Respimat) 0 gm INH Q4HRRT REMIGIO Last Admin: 08/27/20 13:11 Dose: 1 puff Documented by: Dexamethasone (Dexamethasone) 10 mg IVPUSH ONETIME ONE Stop: 08/22/20 18:26 Last Admin: 08/22/20 18:46 Dose: 10 mg Documented by: Dexamethasone (Dexamethasone) 6 mg PO DAILY [facility] Last Admin: 08/27/20 08:05 Dose: 6 mg Documented by: Duloxetine HCl (Cymbalta) 60 mg PO DAILY [facility] Last Admin: 08/23/20 15:40 Dose: Not Given Documented by: Duloxetine HCl (Cymbalta) 60 mg PO DAILY [facility] Last Admin: 08/27/20 08:04 Dose: 60 mg Documented by: Enoxaparin Sodium (Lovenox) 40 mg SUBCUT Q24H [facility] Last Admin: 08/23/20 02:02 Dose: Not Given Documented by: Enoxaparin Sodium (Lovenox) 40 mg SUBCUT Q12H [facility] Last Admin: 08/27/20 09:55 Dose: 40 mg Documented by: Gabapentin (Neurontin) 600 mg PO DAILY [facility] Last Admin: 08/23/20 15:40 Dose: Not Given Documented by: Gabapentin (Neurontin) 600 mg PO DAILY@1900 [facility] Last Admin: 08/26/20 18:39 Dose: 600 mg Documented by: Guaifenesin (Mucinex) 600 mg PO TID PRN PRN Reason: Cough Guaifenesin (Mucinex) 600 mg PO TID [facility] Last Admin: 08/27/20 13:10 Dose: 600 mg Documented by: Sodium Chloride (Normal Saline) 1,000 mls @ 999 mls/hr IV STAT ONE Stop: 08/22/20 19:23 Last Admin: 08/22/20 18:47 Dose: 999 mls/hr Documented by: Ceftriaxone Sodium/Dextrose 2 (gm/ Premix) 50 mls @ 100 mls/hr IV ONETIME ONE Stop: 08/22/20 18:54 Last Admin: 08/22/20 18:45 Dose: 100 mls/hr Documented by: Remdesivir 200 mg/ Sodium (Chloride) 250 mls @ 250 mls/hr IV ONETIME ONE Stop: 08/23/20 00:13 Last Admin: 08/23/20 01:52 Dose: 250 mls/hr Documented by: Remdesivir 100 mg/ Sodium (Chloride) 100 mls @ 100 mls/hr IV Q24H REMIGIO Stop: 08/26/20 13:59 Last Admin: 08/23/20 15:41 Dose: Not Given Documented by: Levofloxacin/Dextrose 750 mg/ (Premix) 150 mls @ 100 mls/hr IV Q24H [facility] Last Admin: 08/27/20 09:55 Dose: 100 mls/hr Documented by: Remdesivir 100 mg/ Sodium (Chloride) 100 mls @ 100 mls/hr IV Q24H [facility]IGIO Stop: 08/27/20 00:59 Last Admin: 08/26/20 23:32 Dose: 100 mls/hr Documented by: Sodium Chloride (Normal Saline) 500 mls @ 999 mls/hr IV .BOLUS [facility] Last Admin: 08/26/20 11:56 Dose: 999 mls/hr Documented by: Iopamidol (Isovue Multipack-370 (76%)) 75 ml IVPUSH ONETIME STA Stop: 08/23/20 15:30 Last Admin: 08/23/20 15:30 Dose: 75 ml Documented by: Ketorolac Tromethamine (Toradol) 15 mg IVPUSH ONETIME ONE Stop: 08/22/20 18:26 Last Admin: 08/22/20 18:44 Dose: 15 mg Documented by: Magnesium Oxide (Magnesium Oxide) 400 mg PO BEDTIME [facility] Last Admin: 08/26/20 21:03 Dose: 400 mg Documented by: Non-Formulary Medication (Zolpidem) 10 mg PO BEDTIME PRN PRN Reason: Sleep Ondansetron HCl (Zofran) 4 mg IVPUSH Q4H PRN PRN Reason: Nausea/Vomiting Pantoprazole Sodium (Protonix Iv) 40 mg IV DAILY [facility] Last Admin: 08/27/20 08:05 Dose: 40 mg Documented by: Premarin 0.45 Mg 1 each PO DAILY [facility] Last Admin: 08/23/20 15:40 Dose: Not Given Documented by: Premarin 0.45 Mg 1 each PO DAILY [facility] Last Admin: 08/27/20 09:55 Dose: Not Given Documented by: Zolpidem 10 Mg) 1 each PO BEDTIME PRN PRN Reason: Sleep Prochlorperazine Edisylate (Compazine) 10 mg IVPUSH ONETIME ONE Stop: 08/22/20 18:26 Last Admin: 08/22/20 18:44 Dose: 10 mg Documented by: Simvastatin (Zocor) 20 mg PO DAILY [facility] Last Admin: 08/23/20 15:41 Dose: Not Given Documented by: Simvastatin (Zocor) 20 mg PO DAILY [facility] Last Admin: 08/27/20 08:04 Dose: 20 mg Documented by: Sodium Chloride (Saline Flush) 10 ml FLUSH ASDIRECTED PRN PRN Reason: Keep Vein Open Last Admin: 08/22/20 18:45 Dose: 10 ml Documented by: Sodium Chloride (Saline Flush) 2.5 ml FLUSH ASDIRECTED PRN PRN Reason: Keep Vein Open Last Admin: 08/22/20 18:45 Dose: 2.5 ml Documented by: Trazodone HCl (Trazodone) 100 mg PO BEDTIME [facility] Last Admin: 08/26/20 23:33 Dose: 100 mg Documented by: - Problem List & Annotations (1) COVID-19 SNOMED Code(s): 899073567 Code(s): U07.1 - COVID-19 Status: Acute (2) Hypoxia SNOMED Code(s): 559010309 Code(s): R09.02 - HYPOXEMIA Status: Acute - Plan Plan:: I have seen and evaluated the patient. I have discussed findings and treatment plan with resident. I agree with the assessment and plan in the following note.
[2020-08-23] MEDS: Dexamethasone 4 MG Tab PO SCH (08:55)
[2020-08-23] MEDS: Pantoprazole 40 MG Vial IV SCH (08:56)
[2020-08-23] MEDS: guaiFENesin 600 MG Tab.ER PO SCH ×3 (11:18→21:26)
[2020-08-23] MEDS: Levofloxacin/Dextrose 5%-Water 750 MG in Premix Bag 1 BAG IV SCH (11:23)
[2020-08-23] MEDS ORDERED: Simvastatin 10 MG Tab PO SCH (12:00)
[2020-08-23] MEDS ORDERED: Gabapentin 300 MG Cap PO SCH (12:00)
[2020-08-23] MEDS ORDERED: PREMARIN 0.45 MG PO SCH (12:00)
[2020-08-23] MEDS ORDERED: DULoxetine 60 MG Cap PO SCH (12:00)
[2020-08-23] MEDS ORDERED: REMDESIVIR 100 MG in Sodium Chloride 0.9% 100 ML IV SCH (13:00)
--- NOTE | 2020-08-23 14:09 | CT ---
INDICATION: Dyspnea. COVID positive COMPARISON: None TECHNIQUE: : CT examination of the chest was performed with the uneventful intravenous administration of 75 cc of Isovue 370 while thin axial sections were obtained from above the apices of the lungs to the lung bases. Please note that all CT scans at this facility use dose modulation, iterative reconstruction, and/or weight-based dosing when appropriate to reduce radiation dose to as low as reasonably achievable. FINDINGS: : HEART and MEDIASTINUM: The heart size is normal. There is no mediastinal or hilar adenopathy or mass. There is no pericardial effusion. PULMONARY ARTERIAL CIRCULATION: There is no visible intraluminal filling defect to suggest pulmonary embolus. LUNGS: Moderate distribution bilateral and symmetric ground-glass opacities. No focal consolidation. No pleural effusion or pneumothorax. While nonspecific, the findings are consistent with COVID related lung disease. PLEURAL SPACES: There is no pleural effusion, pneumothorax or pleural based mass. VISUALIZED UPPER ABDOMEN: Hepatic steatosis. Otherwise, the limited visualized upper abdominal structures appear normal. OSSEOUS STRUCTURES: Age-appropriate appearance. No acute fracture or destructive process. TUBES and LINES: None. IMPRESSION: 1. There is no evidence of pulmonary embolus. 2. There is a moderate bilateral and symmetric distribution of ground-glass opacities. While nonspecific, the findings are consistent with COVID pneumonia. 3. No pleural effusions. 4. I discussed the above findings at 2 p.m. on August 23, 2020 with Joey Oswald Please note that all CT scans at this facility use dose modulation, iterative reconstruction, and/or weight-based dosing when appropriate to reduce radiation dose to as low as reasonably achievable. Dictated by Gregorio Ortiz MD @ Aug 23 2020 1:58PM Signed by Dr. Gregorio Ortiz @ Aug 23 2020 2:09PM
[2020-08-23] MEDS: Albuterol/Ipratropium 4 GM Inhalation Spray INH SCH ×3 (14:59→21:23)
[2020-08-23] MEDS ORDERED: Iopamidol 755 MG/ML 500 ML Multipack Bottle IVPUSH STA (15:29)
[2020-08-23] MEDS ORDERED: Non-Formulary Medication 1 Each (Zolpidem 10 MG) PO PRN (16:43)
[2020-08-23] MEDS ORDERED: ZOLPIDEM 10 MG PO PRN (21:00)
[2020-08-23] MEDS: Magnesium Oxide 400 MG Tab PO SCH (21:25)
[2020-08-23] MEDS: traZODone 50 MG Tab PO SCH (21:25)
[2020-08-23] MEDS: Gabapentin 300 MG Cap PO SCH (21:25)
[2020-08-23] MEDS: REMDESIVIR 100 MG in Sodium Chloride 0.9% 100 ML IV SCH (23:28)
[2020-08-24] MEDS: Albuterol/Ipratropium 4 GM Inhalation Spray INH SCH ×6 (01:58→21:36)
[2020-08-24 06:37] LABS: BLOOD UREA NITROGEN,BUN 13 mg/dL (7.0-18.0); CARBON DIOXIDE,CO2 28.1 mmol/L (21.0-32.0); CHLORIDE,CL 107 mmol/L (98-107); GLUCOSE RANDOM 98 mg/dL (74-106); POTASSIUM,K 3.6 mmol/L (3.5-5.1); SODIUM,NA 144 mmol/L (136-145)
[2020-08-24] MEDS: guaiFENesin 600 MG Tab.ER PO SCH ×3 (07:00→21:35)
[2020-08-24] MEDS: Simvastatin 10 MG Tab PO SCH (09:34)
[2020-08-24] MEDS: Dexamethasone 4 MG Tab PO SCH (09:34)
[2020-08-24] MEDS: DULoxetine 60 MG Cap PO SCH (09:35)
[2020-08-24] MEDS: Pantoprazole 40 MG Vial IV SCH (09:36)
[2020-08-24] MEDS: PREMARIN 0.45 MG PO SCH (09:37)
[2020-08-24] MEDS: Acetaminophen 325 MG Tab PO PRN (10:07)
[2020-08-24] MEDS: Enoxaparin 40 MG/0.4 ML Syringe SUBCUT SCH ×2 (10:09→21:35)
[2020-08-24] MEDS: Levofloxacin/Dextrose 5%-Water 750 MG in Premix Bag 1 BAG IV SCH (10:14)
--- NOTE | 2020-08-24 11:30 | PCM.PN ---
- General Info Date of Service: 08/24/20 Subjective Update: Reports cough and SOB unchanged since yesterday. Reports burning chest pain with cough. Denies any nausea, vomiting, abdominal pain or diarrhea. Decreased appetite. - Patient Data Vitals - Most Recent: Last Vital Signs Temp 38.0 C 08/24/20 10:07 Pulse 74 08/24/20 08:00 Resp 18 08/24/20 08:00 BP 104/53 L 08/24/20 08:00 Pulse Ox 92 L 08/24/20 08:00 Weight - Most Recent: 93.485 kg I&O - Last 24 Hours: Intake & Output 08/23/20 08/24/20 08/24/20 22:59 06:59 14:59 Intake Total 1620 1000 Output Total 1550 1500 Balance 70 -500 Lab Results Last 24 Hours: Laboratory Results - last 24 hr 08/24/20 08/24/20 Range/Units 05:45 05:45 WBC 6.66 (4.0-11.0) K/uL RBC 3.94 L (4.30-5.90) M/uL Hgb 11.9 L (12.0-16.0) g/dL Hct 36.5 (36.0-46.0) % MCV 92.6 (80.0-98.0) fL MCH 30.2 (27.0-32.0) pg MCHC 32.6 (31.0-37.0) g/dL RDW Std Deviation 45.5 (28.0-62.0) fl RDW Coeff of Etienne 13 (11.0-15.0) % Plt Count 194 (150-400) K/uL MPV 9.80 (7.40-12.00) fL Neut % (Auto) 64.0 (48.0-80.0) % Lymph % (Auto) 28.5 (16.0-40.0) % [place] % (Auto) 7.1 (0.0-15.0) % Eos % (Auto) 0.2 (0.0-7.0) % Baso % (Auto) 0.2 (0.0-1.5) % Neut # (Auto) 4.3 (1.4-5.7) K/uL Lymph # (Auto) 1.9 (0.6-2.4) K/uL [place] # (Auto) 0.5 (0.0-0.8) K/uL Eos # (Auto) 0.0 (0.0-0.7) K/uL Baso # (Auto) 0.0 (0.0-0.1) K/uL Nucleated RBC % 0.0 /100WBC Nucleated RBCs # 0 K/uL Sodium 144 (136-145) mmol/L Potassium 3.6 (3.5-5.1) mmol/L Chloride 107 (98-107) mmol/L Carbon Dioxide 28.1 (21.0-32.0) mmol/L BUN 13 (7.0-18.0) mg/dL Creatinine 0.7 (0.6-1.0) mg/dL Est Cr Clr Drug Dosing 86.01 mL/min Estimated GFR (MDRD) > 60.0 ml/min Glucose 98 (74-106) mg/dL Calcium 8.3 L (8.5-10.1) mg/dL Total Bilirubin 0.3 (0.2-1.0) mg/dL AST 38 H (15-37) IU/L ALT 70 H (14-63) IU/L Alkaline Phosphatase 66 (46-116) U/L Total Protein 6.3 L (6.4-8.2) g/dL Albumin 2.8 L (3.4-5.0) g/dL Globulin 3.5 (2.6-4.0) g/dL Albumin/Globulin Ratio 0.8 L (0.9-1.6) Jose Results Last 24 Hours: Microbiology 08/22/20 19:20 Aerobic Blood Culture - Preliminary Blood - Venous - Lab Draw NO GROWTH AFTER 1 DAY Anaerobic Blood Culture - Final 08/22/20 19:05 Aerobic Blood Culture - Preliminary Blood - Venous NO GROWTH AFTER 1 DAY Anaerobic Blood Culture - Preliminary NO GROWTH AFTER 1 DAY Med Orders - Current: Current Medications Acetaminophen (Tylenol) 650 mg PO Q4H PRN PRN Reason: Pain (Mild 1-3)/fever Last Admin: 08/24/20 10:07 Dose: 650 mg Documented by: Albuterol/Ipratropium (Combivent Respimat) 0 gm INH Q4HRRT [facility] Last Admin: 08/24/20 10:10 Dose: 1 puff Documented by: Dexamethasone (Dexamethasone) 6 mg PO DAILY [facility] Last Admin: 08/24/20 09:34 Dose: 6 mg Documented by: Duloxetine HCl (Cymbalta) 60 mg PO DAILY [facility] Last Admin: 08/24/20 09:35 Dose: 60 mg Documented by: Enoxaparin Sodium (Lovenox) 40 mg SUBCUT Q12H [facility] Last Admin: 08/24/20 10:09 Dose: 40 mg Documented by: Gabapentin (Neurontin) 600 mg PO DAILY@1900 [facility] Last Admin: 08/23/20 21:25 Dose: 600 mg Documented by: Guaifenesin (Mucinex) 600 mg PO TID [facility] Last Admin: 08/24/20 07:00 Dose: 600 mg Documented by: Levofloxacin/Dextrose 750 mg/ (Premix) 150 mls @ 100 mls/hr IV Q24H [facility] Last Admin: 08/24/20 10:14 Dose: 100 mls/hr Documented by: Remdesivir 100 mg/ Sodium (Chloride) 100 mls @ 100 mls/hr IV Q24H [facility] Stop: 08/27/20 00:59 Last Admin: 08/23/20 23:28 Dose: 100 mls/hr Documented by: Magnesium Oxide (Magnesium Oxide) 400 mg PO BEDTIME [facility] Last Admin: 08/23/20 21:25 Dose: 400 mg Documented by: Ondansetron HCl (Zofran) 4 mg IVPUSH Q4H PRN PRN Reason: Nausea/Vomiting Pantoprazole Sodium (Protonix Iv) 40 mg IV DAILY [facility] Last Admin: 08/24/20 09:36 Dose: 40 mg Documented by: Premarin 0.45 Mg 1 each PO DAILY [facility] Last Admin: 08/24/20 09:37 Dose: Not Given Documented by: Zolpidem 10 Mg) 1 each PO BEDTIME PRN PRN Reason: Sleep Simvastatin (Zocor) 20 mg PO DAILY [facility] Last Admin: 08/24/20 09:34 Dose: 20 mg Documented by: Sodium Chloride (Saline Flush) 10 ml FLUSH ASDIRECTED PRN PRN Reason: Keep Vein Open Last Admin: 08/22/20 18:45 Dose: 10 ml Documented by: Sodium Chloride (Saline Flush) 2.5 ml FLUSH ASDIRECTED PRN PRN Reason: Keep Vein Open Last Admin: 10/18/20 18:45 Dose: 2.5 ml Documented by: Trazodone HCl (Trazodone) 100 mg PO BEDTIME [facility] Last Admin: 08/23/20 21:25 Dose: 100 mg Documented by: Discontinued Medications Acetaminophen (Tylenol Extra Strength) 1,000 mg PO ONETIME ONE Stop: 08/22/20 18:26 Last Admin: 08/22/20 18:45 Dose: 1,000 mg Documented by: Albuterol/Ipratropium (Combivent Respimat) 0 gm INH Q4H PRN PRN Reason: Dyspnea Dexamethasone (Dexamethasone) 10 mg IVPUSH ONETIME ONE Stop: 08/22/20 18:26 Last Admin: 08/22/20 18:46 Dose: 10 mg Documented by: Duloxetine HCl (Cymbalta) 60 mg PO DAILY [facility] Last Admin: 08/23/20 15:40 Dose: Not Given Documented by: Enoxaparin Sodium (Lovenox) 40 mg SUBCUT Q24H [facility] Last Admin: 08/23/20 02:02 Dose: Not Given Documented by: Gabapentin (Neurontin) 600 mg PO DAILY [facility] Last Admin: 08/23/20 15:40 Dose: Not Given Documented by: Guaifenesin (Mucinex) 600 mg PO TID PRN PRN Reason: Cough Sodium Chloride (Normal Saline) 1,000 mls @ 999 mls/hr IV STAT ONE Stop: 08/22/20 19:23 Last Admin: 08/22/20 18:47 Dose: 999 mls/hr Documented by: Ceftriaxone Sodium/Dextrose 2 (gm/ Premix) 50 mls @ 100 mls/hr IV ONETIME ONE Stop: 08/22/20 18:54 Last Admin: 08/22/20 18:45 Dose: 100 mls/hr Documented by: Remdesivir 200 mg/ Sodium (Chloride) 250 mls @ 250 mls/hr IV ONETIME ONE Stop: 08/23/20 00:13 Last Admin: 08/23/20 01:52 Dose: 250 mls/hr Documented by: Remdesivir 100 mg/ Sodium (Chloride) 100 mls @ 100 mls/hr IV Q24H [facility] Stop: 08/26/20 13:59 Last Admin: 08/23/20 15:41 Dose: Not Given Documented by: Iopamidol (Isovue Multipack-370 (76%)) 75 ml IVPUSH ONETIME STA Stop: 08/23/20 15:30 Last Admin: 08/23/20 15:30 Dose: 75 ml Documented by: Ketorolac Tromethamine (Toradol) 15 mg IVPUSH ONETIME ONE Stop: 08/22/20 18:26 Last Admin: 08/22/20 18:44 Dose: 15 mg Documented by: Non-Formulary Medication (Zolpidem) 10 mg PO BEDTIME PRN PRN Reason: Sleep Premarin 0.45 Mg 1 each PO DAILY [facility] Last Admin: 08/23/20 15:40 Dose: Not Given Documented by: Prochlorperazine Edisylate (Compazine) 10 mg IVPUSH ONETIME ONE Stop: 08/22/20 18:26 Last Admin: 08/22/20 18:44 Dose: 10 mg Documented by: Simvastatin (Zocor) 20 mg PO DAILY [facility] Last Admin: 08/23/20 15:41 Dose: Not Given Documented by: - Exam General: Alert, Oriented, Cooperative, No Acute Distress Lungs: Normal Respiratory Effort, Other (Mild rales appreciated bilaterally, shallow breath sounds.) 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: Regular Rate, Regular Rhythm GI/Abdominal Exam: Normal Bowel Sounds, Soft, Non-Tender, No Distention Extremities: Other (No lower extremity edema bilaterally.) Sepsis Event Note - Evaluation Sepsis Screening Result: No Definite Risk - Focused Exam Vital Signs: Vital Signs Temp Temp Pulse Resp BP Pulse Ox 08/24/20 10:07 38.0 C 08/24/20 08:00 38.0 C 74 18 104/53 L 92 L 08/24/20 03:43 36.1 C 61 16 117/60 91 L 08/24/20 00:01 36.5 C 65 17 107/71 92 L - Problem List & Annotations (1) Hypoxia SNOMED Code(s): 365448105 Code(s): R09.02 - HYPOXEMIA Status: Acute Current Visit: Yes (2) Transaminitis SNOMED Code(s): 609058467, 293100884 Code(s): R74.01 - ELEVATION OF LEVELS OF LIVER TRANSAMINASE LEVELS Status: Acute Current Visit: Yes (3) COVID-19 SNOMED Code(s): 328742186 Code(s): U07.1 - COVID-19 Status: Acute Current Visit: Yes (4) Fibromyalgia SNOMED Code(s): 271520963 Code(s): M79.7 - FIBROMYALGIA Status: Acute Current Visit: Yes (5) Hyperlipidemia SNOMED Code(s): 86767873 Code(s): E78.5 - HYPERLIPIDEMIA, UNSPECIFIED Status: Acute Current Visit: Yes (6) Depression SNOMED Code(s): 93536238 Code(s): F32.9 - MAJOR DEPRESSIVE DISORDER, SINGLE EPISODE, UNSPECIFIED St atus: Acute Current Visit: Yes (7) H/O gastric bypass SNOMED Code(s): 732111465 Code(s): Z98.84 - BARIATRIC SURGERY STATUS Status: Acute Current Visit: Yes - Problem List Review Problem List Initiated/Reviewed/Updated: Yes - My Orders Last 24 Hours: My Active Orders 08/23/20 13:17 Communication Order [RC] ROUTINE 08/23/20 19:00 Gabapentin [Neurontin] 600 mg PO DAILY@1900 08/23/20 21:00 Magnesium Oxide 400 mg PO BEDTIME Patient's Own Medication [Ptom] 1 each PO BEDTIME PRN traZODone 100 mg PO BEDTIME 08/24/20 09:00 DULoxetine [Cymbalta] 60 mg PO DAILY Patient's Own Medication [Ptom] 1 each PO DAILY Simvastatin [Zocor] 20 mg PO DAILY - Plan Plan:: Assessment and Plan: 1. Acute hypoxic respiratory failure secondary to COVID-19: - Will continue supplemental O2 prn, Combivent q4 REMIGIO, guaifenesin, PO dexamethasone 6 mg qd IV Remdesivir and IV levaquin. Encouraged incentive spir ometer use. - CXR showed infiltrates in lung bases b/l. - Blood cultures negative at 24 hours. 2. Transaminitis, downtrending: - Elevation in ALT and AST today likely secondary to Remdesivir. 3. DVT prophylaxis: - Lovenox 40 mg BID. 4. Past medical history of anxiety, depression, seizure, HLD, fibromyalgia and gastric bypass surgery: - Will continue home medications.
[2020-08-24] MEDS: Gabapentin 300 MG Cap PO SCH (19:45)
[2020-08-24] MEDS: traZODone 50 MG Tab PO SCH (21:35)
[2020-08-24] MEDS: Magnesium Oxide 400 MG Tab PO SCH (21:35)
[2020-08-24] MEDS: REMDESIVIR 100 MG in Sodium Chloride 0.9% 100 ML IV SCH (23:14)
[2020-08-25] MEDS: Albuterol/Ipratropium 4 GM Inhalation Spray INH SCH ×6 (01:03→21:33)
[2020-08-25] MEDS: guaiFENesin 600 MG Tab.ER PO SCH ×3 (05:57→21:13)
[2020-08-25 06:51] LABS: BLOOD UREA NITROGEN,BUN 12 mg/dL (7.0-18.0); CARBON DIOXIDE,CO2 28.5 mmol/L (21.0-32.0); CHLORIDE,CL 107 mmol/L (98-107); GLUCOSE RANDOM 91 mg/dL (74-106); POTASSIUM,K 3.9 mmol/L (3.5-5.1); SODIUM,NA 143 mmol/L (136-145)
[2020-08-25] MEDS: Simvastatin 10 MG Tab PO SCH (09:42)
[2020-08-25] MEDS: DULoxetine 60 MG Cap PO SCH (09:42)
[2020-08-25] MEDS: Dexamethasone 4 MG Tab PO SCH (09:43)
[2020-08-25] MEDS: PREMARIN 0.45 MG PO SCH (09:43)
[2020-08-25] MEDS: Enoxaparin 40 MG/0.4 ML Syringe SUBCUT SCH ×2 (09:44→21:13)
[2020-08-25] MEDS: Pantoprazole 40 MG Vial IV SCH (09:45)
--- NOTE | 2020-08-25 09:53 | PCM.PN ---
- General Info Date of Service: 08/25/20 - Review of Systems Systems Review Comment:: reports nonproductive cough, some improvement in shortness of breath, requiring O2 overnight. - Patient Data Vitals - Most Recent: Last Vital Signs Temp 36.6 C 08/25/20 07:58 Pulse 48 L 08/25/20 07:58 Resp 18 08/25/20 07:58 BP 95/53 L 08/25/20 07:58 Pulse Ox 92 L 08/25/20 07:58 Weight - Most Recent: 93.485 kg I&O - Last 24 Hours: Intake & Output 08/24/20 08/25/20 08/25/20 22:59 06:59 14:59 Intake Total 1800 Output Total 2000 Balance -200 Lab Results Last 24 Hours: Laboratory Results - last 24 hr 08/25/20 08/25/20 Range/Units 06:05 06:05 WBC 4.61 (4.0-11.0) K/uL RBC 4.04 L (4.30-5.90) M/uL Hgb 12.2 (12.0-16.0) g/dL Hct 37.6 (36.0-46.0) % MCV 93.1 (80.0-98.0) fL MCH 30.2 (27.0-32.0) pg MCHC 32.4 (31.0-37.0) g/dL RDW Std Deviation 45.1 (28.0-62.0) fl RDW Coeff of Etienne 13 (11.0-15.0) % Plt Count 196 (150-400) K/uL MPV 10.20 (7.40-12.00) fL Neut % (Auto) 50.8 (48.0-80.0) % Lymph % (Auto) 38.2 (16.0-40.0) % [place] % (Auto) 10.6 (0.0-15.0) % Eos % (Auto) 0.2 (0.0-7.0) % Baso % (Auto) 0.2 (0.0-1.5) % Neut # (Auto) 2.3 (1.4-5.7) K/uL Lymph # (Auto) 1.8 (0.6-2.4) K/uL [place] # (Auto) 0.5 (0.0-0.8) K/uL Eos # (Auto) 0.0 (0.0-0.7) K/uL Baso # (Auto) 0.0 (0.0-0.1) K/uL Nucleated RBC % 0.0 /100WBC Nucleated RBCs # 0 K/uL Sodium 143 (136-145) mmol/L Potassium 3.9 (3.5-5.1) mmol/L Chloride 107 (98-107) mmol/L Carbon Dioxide 28.5 (21.0-32.0) mmol/L BUN 12 (7.0-18.0) mg/dL Creatinine 0.8 (0.6-1.0) mg/dL Est Cr Clr Drug Dosing 75.26 mL/min Estimated GFR (MDRD) > 60.0 ml/min Glucose 91 (74-106) mg/dL Calcium 8.4 L (8.5-10.1) mg/dL Total Bilirubin 0.4 (0.2-1.0) mg/dL AST 33 (15-37) IU/L ALT 62 (14-63) IU/L Alkaline Phosphatase 69 (46-116) U/L Total Protein 6.7 (6.4-8.2) g/dL Albumin 3.0 L (3.4-5.0) g/dL Globulin 3.7 (2.6-4.0) g/dL Albumin/Globulin Ratio 0.8 L (0.9-1.6) Jose Results Last 24 Hours: Microbiology 08/22/20 19:20 Aerobic Blood Culture - Preliminary Blood - Venous - Lab Draw NO GROWTH AFTER 2 DAYS Anaerobic Blood Culture - Final 08/22/20 19:05 Aerobic Blood Culture - Preliminary Blood - Venous NO GROWTH AFTER 2 DAYS Anaerobic Blood Culture - Preliminary NO GROWTH AFTER 2 DAYS Med Orders - Current: Current Medications Acetaminophen (Tylenol) 650 mg PO Q4H PRN PRN Reason: Pain (Mild 1-3)/fever Last Admin: 08/24/20 10:07 Dose: 650 mg Documented by: Albuterol/Ipratropium (Combivent Respimat) 0 gm INH Q4HRRT [facility] Last Admin: 08/25/20 09:30 Dose: 1 puff Documented by: Dexamethasone (Dexamethasone) 6 mg PO DAILY [facility] Last Admin: 08/25/20 09:43 Dose: 6 mg Documented by: Duloxetine HCl (Cymbalta) 60 mg PO DAILY [facility] Last Admin: 08/25/20 09:42 Dose: 60 mg Documented by: Enoxaparin Sodium (Lovenox) 40 mg SUBCUT Q12H [facility] Last Admin: 08/25/20 09:44 Dose: 40 mg Documented by: Gabapentin (Neurontin) 600 mg PO DAILY@1900 [facility] Last Admin: 08/24/20 19:45 Dose: 600 mg Documented by: Guaifenesin (Mucinex) 600 mg PO TID [facility] Last Admin: 08/25/20 05:57 Dose: 600 mg Documented by: Levofloxacin/Dextrose 750 mg/ (Premix) 150 mls @ 100 mls/hr IV Q24H [facility] Last Admin: 08/24/20 10:14 Dose: 100 mls/hr Documented by: Remdesivir 100 mg/ Sodium (Chloride) 100 mls @ 100 mls/hr IV Q24H [facility] Stop: 08/27/20 00:59 Last Admin: 08/24/20 23:14 Dose: 100 mls/hr Documented by: Magnesium Oxide (Magnesium Oxide) 400 mg PO BEDTIME [facility] Last Admin: 08/24/20 21:35 Dose: 400 mg Documented by: Ondansetron HCl (Zofran) 4 mg IVPUSH Q4H PRN PRN Reason: Nausea/Vomiting Pantoprazole Sodium (Protonix Iv) 40 mg IV DAILY [facility] Last Admin: 08/25/20 09:45 Dose: 40 mg Documented by: Premarin 0.45 Mg 1 each PO DAILY [facility] Last Admin: 08/25/20 09:43 Dose: Not Given Documented by: Zolpidem 10 Mg) 1 each PO BEDTIME PRN PRN Reason: Sleep Simvastatin (Zocor) 20 mg PO DAILY [facility] Last Admin: 08/25/20 09:42 Dose: 20 mg Documented by: Sodium Chloride (Saline Flush) 10 ml FLUSH ASDIRECTED PRN PRN Reason: Keep Vein Open Last Admin: 08/22/20 18:45 Dose: 10 ml Documented by: Sodium Chloride (Saline Flush) 2.5 ml FLUSH ASDIRECTED PRN PRN Reason: Keep Vein Open Last Admin: 08/22/20 18:45 Dose: 2.5 ml Documented by: Trazodone HCl (Trazodone) 100 mg PO BEDTIME [facility] Last Admin: 08/24/20 21:35 Dose: 100 mg Documented by: Discontinued Medications Acetaminophen (Tylenol Extra Strength) 1,000 mg PO ONETIME ONE Stop: 08/22/20 18:26 Last Admin: 08/22/20 18:45 Dose: 1,000 mg Documented by: Albuterol/Ipratropium (Combivent Respimat) 0 gm INH Q4H PRN PRN Reason: Dyspnea Dexamethasone (Dexamethasone) 10 mg IVPUSH ONETIME ONE Stop: 08/22/20 18:26 Last Admin: 08/22/20 18:46 Dose: 10 mg Documented by: Duloxetine HCl (Cymbalta) 60 mg PO DAILY [facility] Last Admin: 08/23/20 15:40 Dose: Not Given Documented by: Enoxaparin Sodium (Lovenox) 40 mg SUBCUT Q24H [facility] Last Admin: 08/23/20 02:02 Dose: Not Given Documented by: Gabapentin (Neurontin) 600 mg PO DAILY [facility] Last Admin: 08/23/20 15:40 Dose: Not Given Documented by: Guaifenesin (Mucinex) 600 mg PO TID PRN PRN Reason: Cough Sodium Chloride (Normal Saline) 1,000 mls @ 999 mls/hr IV STAT ONE Stop: 08/22/20 19:23 Last Admin: 08/22/20 18:47 Dose: 999 mls/hr Documented by: Ceftriaxone Sodium/Dextrose 2 (gm/ Premix) 50 mls @ 100 mls/hr IV ONETIME ONE Stop: 08/22/20 18:54 Last Admin: 08/22/20 18:45 Dose: 100 mls/hr Documented by: Remdesivir 200 mg/ Sodium (Chloride) 250 mls @ 250 mls/hr IV ONETIME ONE Stop: 08/23/20 00:13 Last Admin: 08/23/20 01:52 Dose: 250 mls/hr Documented by: Remdesivir 100 mg/ Sodium (Chloride) 100 mls @ 100 mls/hr IV Q24H [facility] Stop: 08/26/20 13:59 Last Admin: 08/23/20 15:41 Dose: Not Given Documented by: Iopamidol (Isovue Multipack-370 (76%)) 75 ml IVPUSH ONETIME STA Stop: 08/23/20 15:30 Last Admin: 08/23/20 15:30 Dose: 75 ml Documented by: Ketorolac Tromethamine (Toradol) 15 mg IVPUSH ONETIME ONE Stop: 08/22/20 18:26 Last Admin: 08/22/20 18:44 Dose: 15 mg Documented by: Non-Formulary Medication (Zolpidem) 10 mg PO BEDTIME PRN PRN Reason: Sleep Premarin 0.45 Mg 1 each PO DAILY [facility] Last Admin: 08/23/20 15:40 Dose: Not Given Documented by: Prochlorperazine Edisylate (Compazine) 10 mg IVPUSH ONETIME ONE Stop: 08/22/20 18:26 Last Admin: 08/22/20 18:44 Dose: 10 mg Documented by: Simvastatin (Zocor) 20 mg PO DAILY [facility] Last Admin: 08/23/20 15:41 Dose: Not Given Documented by: - Exam General: Alert, Oriented Neck: Supple Lungs: Clear to Auscultation, Normal Respiratory Effort 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: Regular Rate, Regular Rhythm GI/Abdominal Exam: Normal Bowel Sounds, Soft, Non-Tender Extremities: Non-Tender, No Pedal Edema Skin: Warm, Dry, Intact Neurological: No New Focal Deficit Sepsis Event Note - Evaluation Sepsis Screening Result: No Definite Risk - Focused Exam Vital Signs: Vital Signs Temp Pulse Resp BP Pulse Ox 08/25/20 07:58 36.6 C 48 L 18 95/53 L 92 L 08/25/20 05:00 35.7 C L 45 L 15 120/60 93 L 08/25/20 00:11 97/55 L 08/24/20 23:30 36.7 C 47 L 16 82/45 L 91 L - Problem List Review Problem List Initiated/Reviewed/Updated: Yes - My Orders Last 24 Hours: My Active Orders 08/26/20 05:11 CBC WITH AUTO DIFF [HEME] AM COMPREHENSIVE METABOLIC PN,CMP [CHEM] AM - Plan Plan:: Assessment and Plan: 1. Acute hypoxic respiratory failure secondary to COVID-19: - Will continue to ween O2 as needed, Combivent q4 REMIGIO, dexamethasone, Remdesivir, and levaquin. Encouraged incentive spirometer use. 2. DVT prophylaxis: - Lovenox 40 mg BID. 3. Past medical history of anxiety, depression, seizure, HLD, fibromyalgia and gastric bypass surgery: - Will continue home medications.
[2020-08-25] MEDS: Levofloxacin/Dextrose 5%-Water 750 MG in Premix Bag 1 BAG IV SCH (10:35)
[2020-08-25] MEDS: Gabapentin 300 MG Cap PO SCH (18:50)
[2020-08-25] MEDS: Magnesium Oxide 400 MG Tab PO SCH (21:13)
[2020-08-25] MEDS: Acetaminophen 325 MG Tab PO PRN (23:16)
[2020-08-25] MEDS: traZODone 50 MG Tab PO SCH (23:16)
[2020-08-25] MEDS: REMDESIVIR 100 MG in Sodium Chloride 0.9% 100 ML IV SCH (23:17)
[2020-08-26] MEDS: Albuterol/Ipratropium 4 GM Inhalation Spray INH SCH ×6 (03:03→21:05)
[2020-08-26] MEDS: guaiFENesin 600 MG Tab.ER PO SCH ×3 (05:55→21:03)
[2020-08-26 06:58] LABS: BLOOD UREA NITROGEN,BUN 13 mg/dL (7.0-18.0); CARBON DIOXIDE,CO2 26.3 mmol/L (21.0-32.0); CHLORIDE,CL 106 mmol/L (98-107); GLUCOSE RANDOM 103 mg/dL (74-106); POTASSIUM,K 3.9 mmol/L (3.5-5.1); SODIUM,NA 143 mmol/L (136-145)
[2020-08-26] MEDS: Dexamethasone 4 MG Tab PO SCH (08:25)
[2020-08-26] MEDS: Simvastatin 10 MG Tab PO SCH (08:26)
[2020-08-26] MEDS: DULoxetine 60 MG Cap PO SCH (08:27)
[2020-08-26] MEDS: PREMARIN 0.45 MG PO SCH (08:27)
[2020-08-26] MEDS: Pantoprazole 40 MG Vial IV SCH (08:30)
--- NOTE | 2020-08-26 09:10 | PCM.PN ---
- General Info Date of Service: 08/26/20 Subjective Update: Reports dry cough and mild SOB this morning. Has been trying to ambulate around her room and gets SOB. Denies any fevers and chills. Has been eating. - Patient Data Vitals - Most Recent: Last Vital Signs Temp 36.4 C 08/26/20 08:23 Pulse 46 L 08/26/20 08:23 Resp 18 08/26/20 08:23 BP 96/49 L 08/26/20 08:23 Pulse Ox 91 L 08/26/20 08:23 Weight - Most Recent: 93.485 kg I&O - Last 24 Hours: Intake & Output 08/25/20 08/26/20 08/26/20 22:59 06:59 14:59 Intake Total 1150 1040 Output Total 1400 1000 Balance -250 40 Lab Results Last 24 Hours: Laboratory Results - last 24 hr 08/26/20 08/26/20 Range/Units 05:53 05:53 WBC 4.51 (4.0-11.0) K/uL RBC 4.09 L (4.30-5.90) M/uL Hgb 12.3 (12.0-16.0) g/dL Hct 37.9 (36.0-46.0) % MCV 92.7 (80.0-98.0) fL MCH 30.1 (27.0-32.0) pg MCHC 32.5 (31.0-37.0) g/dL RDW Std Deviation 44.2 (28.0-62.0) fl RDW Coeff of Etienne 13 (11.0-15.0) % Plt Count 238 (150-400) K/uL MPV 9.90 (7.40-12.00) fL Neut % (Auto) 56.8 (48.0-80.0) % Lymph % (Auto) 31.3 (16.0-40.0) % [place] % (Auto) 11.5 (0.0-15.0) % Eos % (Auto) 0.2 (0.0-7.0) % Baso % (Auto) 0.2 (0.0-1.5) % Neut # (Auto) 2.6 (1.4-5.7) K/uL Lymph # (Auto) 1.4 (0.6-2.4) K/uL [place] # (Auto) 0.5 (0.0-0.8) K/uL Eos # (Auto) 0.0 (0.0-0.7) K/uL Baso # (Auto) 0.0 (0.0-0.1) K/uL Nucleated RBC % 0.0 /100WBC Nucleated RBCs # 0 K/uL Sodium 143 (136-145) mmol/L Potassium 3.9 (3.5-5.1) mmol/L Chloride 106 (98-107) mmol/L Carbon Dioxide 26.3 (21.0-32.0) mmol/L BUN 13 (7.0-18.0) mg/dL Creatinine 0.6 (0.6-1.0) mg/dL Est Cr Clr Drug Dosing 100.34 mL/min Estimated GFR (MDRD) > 60.0 ml/min Glucose 103 (74-106) mg/dL Calcium 8.2 L (8.5-10.1) mg/dL Total Bilirubin 0.4 (0.2-1.0) mg/dL AST 23 (15-37) IU/L ALT 43 (14-63) IU/L Alkaline Phosphatase 58 (46-116) U/L Total Protein 6.0 L (6.4-8.2) g/dL Albumin 2.7 L (3.4-5.0) g/dL Globulin 3.3 (2.6-4.0) g/dL Albumin/Globulin Ratio 0.8 L (0.9-1.6) Jose Results Last 24 Hours: Microbiology 08/22/20 19:20 Aerobic Blood Culture - Preliminary Blood - Venous - Lab Draw NO GROWTH AFTER 3 DAYS Anaerobic Blood Culture - Final 08/22/20 19:05 Aerobic Blood Culture - Preliminary Blood - Venous NO GROWTH AFTER 3 DAYS Anaerobic Blood Culture - Preliminary NO GROWTH AFTER 3 DAYS Med Orders - Current: Current Medications Acetaminophen (Tylenol) 650 mg PO Q4H PRN PRN Reason: Pain (Mild 1-3)/fever Last Admin: 08/25/20 23:16 Dose: 650 mg Documented by: Albuterol/Ipratropium (Combivent Respimat) 0 gm INH Q4HRRT [facility] Last Admin: 08/26/20 05:57 Dose: 1 puff Documented by: Dexamethasone (Dexamethasone) 6 mg PO DAILY [facility] Last Admin: 08/26/20 08:25 Dose: 6 mg Documented by: Duloxetine HCl (Cymbalta) 60 mg PO DAILY [facility] Last Admin: 08/26/20 08:27 Dose: 60 mg Documented by: Enoxaparin Sodium (Lovenox) 40 mg SUBCUT Q12H [facility] Last Admin: 08/25/20 21:13 Dose: 40 mg Documented by: Gabapentin (Neurontin) 600 mg PO DAILY@1900 [facility] Last Admin: 08/25/20 18:50 Dose: 600 mg Documented by: Guaifenesin (Mucinex) 600 mg PO TID [facility] Last Admin: 08/26/20 05:55 Dose: 600 mg Documented by: Levofloxacin/Dextrose 750 mg/ (Premix) 150 mls @ 100 mls/hr IV Q24H [facility] Last Admin: 08/25/20 10:35 Dose: 100 mls/hr Documented by: Remdesivir 100 mg/ Sodium (Chloride) 100 mls @ 100 mls/hr IV Q24H [facility] Stop: 08/27/20 00:59 Last Admin: 08/25/20 23:17 Dose: 100 mls/hr Documented by: Magnesium Oxide (Magnesium Oxide) 400 mg PO BEDTIME [facility] Last Admin: 08/25/20 21:13 Dose: 400 mg Documented by: Ondansetron HCl (Zofran) 4 mg IVPUSH Q4H PRN PRN Reason: Nausea/Vomiting Pantoprazole Sodium (Protonix Iv) 40 mg IV DAILY [facility] Last Admin: 08/26/20 08:30 Dose: 40 mg Documented by: Premarin 0.45 Mg 1 each PO DAILY [facility] Last Admin: 08/26/20 08:27 Dose: Not Given Documented by: Zolpidem 10 Mg) 1 each PO BEDTIME PRN PRN Reason: Sleep Simvastatin (Zocor) 20 mg PO DAILY [facility] Last Admin: 08/26/20 08:26 Dose: 20 mg Documented by: Sodium Chloride (Saline Flush) 10 ml FLUSH ASDIRECTED PRN PRN Reason: Keep Vein Open Last Admin: 08/22/20 18:45 Dose: 10 ml Documented by: Sodium Chloride (Saline Flush) 2.5 ml FLUSH ASDIRECTED PRN PRN Reason: Keep Vein Open Last Admin: 08/22/20 18:45 Dose: 2.5 ml Documented by: Trazodone HCl (Trazodone) 100 mg PO BEDTIME [facility] Last Admin: 08/25/20 23:16 Dose: 100 mg Documented by: Discontinued Medications Acetaminophen (Tylenol Extra Strength) 1,000 mg PO ONETIME ONE Stop: 08/22/20 18:26 Last Admin: 08/22/20 18:45 Dose: 1,000 mg Documented by: Albuterol/Ipratropium (Combivent Respimat) 0 gm INH Q4H PRN PRN Reason: Dyspnea Dexamethasone (Dexamethasone) 10 mg IVPUSH ONETIME ONE Stop: 08/22/20 18:26 Last Admin: 08/22/20 18:46 Dose: 10 mg Documented by: Duloxetine HCl (Cymbalta) 60 mg PO DAILY [facility] Last Admin: 08/23/20 15:40 Dose: Not Given Documented by: Enoxaparin Sodium (Lovenox) 40 mg SUBCUT Q24H [facility] Last Admin: 08/23/20 02:02 Dose: Not Given Documented by: Gabapentin (Neurontin) 600 mg PO DAILY [facility] Last Admin: 08/23/20 15:40 Dose: Not Given Documented by: Guaifenesin (Mucinex) 600 mg PO TID PRN PRN Reason: Cough Sodium Chloride (Normal Saline) 1,000 mls @ 999 mls/hr IV STAT ONE Stop: 08/22/20 19:23 Last Admin: 08/22/20 18:47 Dose: 999 mls/hr Documented by: Ceftriaxone Sodium/Dextrose 2 (gm/ Premix) 50 mls @ 100 mls/hr IV ONETIME ONE Stop: 08/22/20 18:54 Last Admin: 08/22/20 18:45 Dose: 100 mls/hr Documented by: Remdesivir 200 mg/ Sodium (Chloride) 250 mls @ 250 mls/hr IV ONETIME ONE Stop: 08/23/20 00:13 Last Admin: 08/23/20 01:52 Dose: 250 mls/hr Documented by: Remdesivir 100 mg/ Sodium (Chloride) 100 mls @ 100 mls/hr IV Q24H [facility] Stop: 08/26/20 13:59 Last Admin: 08/23/20 15:41 Dose: Not Given Documented by: Iopamidol (Isovue Multipack-370 (76%)) 75 ml IVPUSH ONETIME STA Stop: 08/23/20 15:30 Last Admin: 08/23/20 15:30 Dose: 75 ml Documented by: Ketorolac Tromethamine (Toradol) 15 mg IVPUSH ONETIME ONE Stop: 08/22/20 18:26 Last Admin: 08/22/20 18:44 Dose: 15 mg Documented by: Non-Formulary Medication (Zolpidem) 10 mg PO BEDTIME PRN PRN Reason: Sleep Premarin 0.45 Mg 1 each PO DAILY [facility] Last Admin: 08/23/20 15:40 Dose: Not Given Documented by: Prochlorperazine Edisylate (Compazine) 10 mg IVPUSH ONETIME ONE Stop: 08/22/20 18:26 Last Admin: 08/22/20 18:44 Dose: 10 mg Documented by: Simvastatin (Zocor) 20 mg PO DAILY [facility] Last Admin: 08/23/20 15:41 Dose: Not Given Documented by: - Exam General: Alert, Oriented, Cooperative, No Acute Distress Lungs: Normal Respiratory Effort, Other (shallow breath sounds, mild rales b/l) 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: Regular Rhythm, Bradycardia GI/Abdominal Exam: Normal Bowel Sounds, Soft, Non-Tender, No Distention Extremities: Normal Inspection, No Pedal Edema Sepsis Event Note - Evaluation Sepsis Screening Result: No Definite Risk - Focused Exam Vital Signs: Vital Signs Temp Pulse Resp BP Pulse Ox 08/26/20 08:23 36.4 C 46 L 18 96/49 L 91 L 08/26/20 03:05 36.1 C 44 L 16 85/47 L 93 L 08/26/20 00:32 92 L 08/26/20 00:28 36.5 C 47 L 18 90/50 L 90 L 08/25/20 21:20 92 L 08/25/20 21:17 37.0 C 56 L 20 127/63 87 L - Problem List & Annotations (1) Hypoxia SNOMED Code(s): 384148167 Code(s): R09.02 - HYPOXEMIA Status: Acute Current Visit: Yes (2) Transaminitis SNOMED Code(s): 463622781, 223482757 Code(s): R74.01 - ELEVATION OF LEVELS OF LIVER TRANSAMINASE LEVELS Status: Acute Current Visit: Yes (3) COVID-19 SNOMED Code(s): 079161943 Code(s): U07.1 - COVID-19 Status: Acute Current Visit: Yes (4) Fibromyalgia SNOMED Code(s): 399581954 Code(s): M79.7 - FIBROMYALGIA Status: Acute Current Visit: Yes (5) Hyperlipidemia SNOMED Code(s): 51060182 Code(s): E78.5 - HYPERLIPIDEMIA, UNSPECIFIED Status: Acute Current Visit: Yes (6) Depression SNOMED Code(s): 14773483 Code(s): F32.9 - MAJOR DEPRESSIVE DISORDER, SINGLE EPISODE, UNSPECIFIED Status: Acute Current Visit: Yes (7) H/O gastric bypass SNOMED Code(s): 991440596 Code(s): Z98.84 - BARIATRIC SURGERY STATUS Status: Acute Current Visit: Yes - Problem List Review Problem List Initiated/Reviewed/Updated: Yes - Plan Plan:: Assessment and Plan: 1. Acute hypoxic respiratory failure secondary to COVID-19: - Continue to treat with supplemental oxygen prn, Combivent q4 REMIGIO, dexamethasone,Levaquin and incentive spirometer. Patient to received last dose of Remdesevir tonight. Will continue to try and wean oxygen as tolerated. 2. Bradycardia: - Will order telemetry and monitor. 3. DVT prophylaxis: - Lovenox 40 mg BID. 4. Past medical history of anxiety, depression, seizure, HLD, fibromyalgia and gastric bypass surgery: - Will continue home medications.
[2020-08-26] MEDS: Enoxaparin 40 MG/0.4 ML Syringe SUBCUT SCH ×2 (10:08→21:04)
[2020-08-26] MEDS: Levofloxacin/Dextrose 5%-Water 750 MG in Premix Bag 1 BAG IV SCH (10:09)
[2020-08-26] MEDS ORDERED: Sodium Chloride 0.9% 500 ML IV SCH (11:00)
[2020-08-26] MEDS: Gabapentin 300 MG Cap PO SCH (18:39)
[2020-08-26] MEDS: Magnesium Oxide 400 MG Tab PO SCH (21:03)
[2020-08-26] MEDS: Acetaminophen 325 MG Tab PO PRN (21:03)
[2020-08-26] MEDS: REMDESIVIR 100 MG in Sodium Chloride 0.9% 100 ML IV SCH (23:32)
[2020-08-26] MEDS: traZODone 50 MG Tab PO SCH (23:33)
[2020-08-27] MEDS: Albuterol/Ipratropium 4 GM Inhalation Spray INH SCH ×4 (03:24→13:11)
[2020-08-27] MEDS: guaiFENesin 600 MG Tab.ER PO SCH ×2 (05:47→13:10)
[2020-08-27 06:34] LABS: BLOOD UREA NITROGEN,BUN 12 mg/dL (7.0-18.0); CARBON DIOXIDE,CO2 25.6 mmol/L (21.0-32.0); CHLORIDE,CL 107 mmol/L (98-107); GLUCOSE RANDOM 84 mg/dL (74-106); POTASSIUM,K 3.5 mmol/L (3.5-5.1); SODIUM,NA 142 mmol/L (136-145)
[2020-08-27] MEDS: Simvastatin 10 MG Tab PO SCH (08:04)
[2020-08-27] MEDS: DULoxetine 60 MG Cap PO SCH (08:04)
[2020-08-27] MEDS: Dexamethasone 4 MG Tab PO SCH (08:05)
[2020-08-27] MEDS: Pantoprazole 40 MG Vial IV SCH (08:05)
--- NOTE | 2020-08-27 09:01 | PCM.PN ---
- General Info Date of Service: 08/27/20 Subjective Update: Reports cough feels looser today, mild SOB at rest, ambulated yesterday but got SOB and fatigued. Tolerating oral diet. - Patient Data Vitals - Most Recent: Last Vital Signs Temp 36.3 C 08/27/20 08:02 Pulse 59 L 08/27/20 08:02 Resp 16 08/27/20 08:02 BP 106/56 L 08/27/20 08:02 Pulse Ox 93 L 08/27/20 08:02 Weight - Most Recent: 93.485 kg I&O - Last 24 Hours: Intake & Output 08/26/20 08/27/20 08/27/20 22:59 06:59 14:59 Intake Total 3000 1500 Output Total 1800 1800 Balance 1200 -300 Lab Results Last 24 Hours: Laboratory Results - last 24 hr 08/27/20 08/27/20 Range/Units 05:50 05:50 WBC 7.44 (4.0-11.0) K/uL RBC 4.19 L (4.30-5.90) M/uL Hgb 12.7 (12.0-16.0) g/dL Hct 38.5 (36.0-46.0) % MCV 91.9 (80.0-98.0) fL MCH 30.3 (27.0-32.0) pg MCHC 33.0 (31.0-37.0) g/dL RDW Std Deviation 44.1 (28.0-62.0) fl RDW Coeff of Etienne 13 (11.0-15.0) % Plt Count 270 (150-400) K/uL MPV 9.60 (7.40-12.00) fL Neut % (Auto) 47.1 L (48.0-80.0) % Lymph % (Auto) 41.5 H (16.0-40.0) % [place] % (Auto) 10.6 (0.0-15.0) % Eos % (Auto) 0.7 (0.0-7.0) % Baso % (Auto) 0.1 (0.0-1.5) % Neut # (Auto) 3.5 (1.4-5.7) K/uL Lymph # (Auto) 3.1 H (0.6-2.4) K/uL [place] # (Auto) 0.8 (0.0-0.8) K/uL Eos # (Auto) 0.1 (0.0-0.7) K/uL Baso # (Auto) 0.0 (0.0-0.1) K/uL Nucleated RBC % 0.0 /100WBC Nucleated RBCs # 0 K/uL Sodium 142 (136-145) mmol/L Potassium 3.5 (3.5-5.1) mmol/L Chloride 107 (98-107) mmol/L Carbon Dioxide 25.6 (21.0-32.0) mmol/L BUN 12 (7.0-18.0) mg/dL Creatinine 0.8 (0.6-1.0) mg/dL Est Cr Clr Drug Dosing 75.26 mL/min Estimated GFR (MDRD) > 60.0 ml/min Glucose 84 (74-106) mg/dL Calcium 8.3 L (8.5-10.1) mg/dL Total Bilirubin 0.3 (0.2-1.0) mg/dL AST 16 (15-37) IU/L ALT 37 (14-63) IU/L Alkaline Phosphatase 55 (46-116) U/L Total Protein 6.1 L (6.4-8.2) g/dL Albumin 2.8 L (3.4-5.0) g/dL Globulin 3.3 (2.6-4.0) g/dL Albumin/Globulin Ratio 0.9 (0.9-1.6) Jose Results Last 24 Hours: Microbiology 08/22/20 19:20 Aerobic Blood Culture - Preliminary Blood - Venous - Lab Draw NO GROWTH AFTER 4 DAYS Anaerobic Blood Culture - Final 08/22/20 19:05 Aerobic Blood Culture - Preliminary Blood - Venous NO GROWTH AFTER 4 DAYS Anaerobic Blood Culture - Preliminary NO GROWTH AFTER 4 DAYS Med Orders - Current: Current Medications Acetaminophen (Tylenol) 650 mg PO Q4H PRN PRN Reason: Pain (Mild 1-3)/fever Last Admin: 08/26/20 21:03 Dose: 650 mg Documented by: Albuterol/Ipratropium (Combivent Respimat) 0 gm INH Q4HRRT [facility] Last Admin: 08/27/20 06:15 Dose: 1 puff Documented by: Dexamethasone (Dexamethasone) 6 mg PO DAILY [facility] Last Admin: 08/27/20 08:05 Dose: 6 mg Documented by: Duloxetine HCl (Cymbalta) 60 mg PO DAILY [facility] Last Admin: 08/27/20 08:04 Dose: 60 mg Documented by: Enoxaparin Sodium (Lovenox) 40 mg SUBCUT Q12H [facility] Last Admin: 08/26/20 21:04 Dose: 40 mg Documented by: Gabapentin (Neurontin) 600 mg PO DAILY@1900 [facility] Last Admin: 08/26/20 18:39 Dose: 600 mg Documented by: Guaifenesin (Mucinex) 600 mg PO TID [facility] Last Admin: 08/27/20 05:47 Dose: 600 mg Documented by: Levofloxacin/Dextrose 750 mg/ (Premix) 150 mls @ 100 mls/hr IV Q24H [facility] Last Admin: 08/26/20 10:09 Dose: 100 mls/hr Documented by: Magnesium Oxide (Magnesium Oxide) 400 mg PO BEDTIME [facility] Last Admin: 08/26/20 21:03 Dose: 400 mg Documented by: Ondansetron HCl (Zofran) 4 mg IVPUSH Q4H PRN PRN Reason: Nausea/Vomiting Pantoprazole Sodium (Protonix Iv) 40 mg IV DAILY [facility] Last Admin: 08/27/20 08:05 Dose: 40 mg Documented by: Premarin 0.45 Mg 1 each PO DAILY [facility] Last Admin: 08/26/20 08:27 Dose: Not Given Documented by: Zolpidem 10 Mg) 1 each PO BEDTIME PRN PRN Reason: Sleep Simvastatin (Zocor) 20 mg PO DAILY [facility] Last Admin: 08/27/20 08:04 Dose: 20 mg Documented by: Sodium Chloride (Saline Flush) 10 ml FLUSH ASDIRECTED PRN PRN Reason: Keep Vein Open Last Admin: 08/22/20 18:45 Dose: 10 ml Documented by: Sodium Chloride (Saline Flush) 2.5 ml FLUSH ASDIRECTED PRN PRN Reason: Keep Vein Open Last Admin: 08/22/20 18:45 Dose: 2.5 ml Documented by: Trazodone HCl (Trazodone) 100 mg PO BEDTIME [facility] Last Admin: 08/26/20 23:33 Dose: 100 mg Documented by: Discontinued Medications Acetaminophen (Tylenol Extra Strength) 1,000 mg PO ONETIME ONE Stop: 08/22/20 18:26 Last Admin: 08/22/20 18:45 Dose: 1,000 mg Documented by: Albuterol/Ipratropium (Combivent Respimat) 0 gm INH Q4H PRN PRN Reason: Dyspnea Dexamethasone (Dexamethasone) 10 mg IVPUSH ONETIME ONE Stop: 08/22/20 18:26 Last Admin: 08/22/20 18:46 Dose: 10 mg Documented by: Duloxetine HCl (Cymbalta) 60 mg PO DAILY [facility] Last Admin: 08/23/20 15:40 Dose: Not Given Documented by: Enoxaparin Sodium (Lovenox) 40 mg SUBCUT Q24H [facility] Last Admin: 08/23/20 02:02 Dose: Not Given Documented by: Gabapentin (Neurontin) 600 mg PO DAILY [facility] Last Admin: 08/23/20 15:40 Dose: Not Given Documented by: Guaifenesin (Mucinex) 600 mg PO TID PRN PRN Reason: Cough Sodium Chloride (Normal Saline) 1,000 mls @ 999 mls/hr IV STAT ONE Stop: 08/22/20 19:23 Last Admin: 08/22/20 18:47 Dose: 999 mls/hr Documented by: Ceftriaxone Sodium/Dextrose 2 (gm/ Premix) 50 mls @ 100 mls/hr IV ONETIME ONE Stop: 08/22/20 18:54 Last Admin: 08/22/20 18:45 Dose: 100 mls/hr Documented by: Remdesivir 200 mg/ Sodium (Chloride) 250 mls @ 250 mls/hr IV ONETIME ONE Stop: 08/23/20 00:13 Last Admin: 08/23/20 01:52 Dose: 250 mls/hr Documented by: Remdesivir 100 mg/ Sodium (Chloride) 100 mls @ 100 mls/hr IV Q24H [facility] Stop: 08/26/20 13:59 Last Admin: 08/23/20 15:41 Dose: Not Given Documented by: Remdesivir 100 mg/ Sodium (Chloride) 100 mls @ 100 mls/hr IV Q24H [facility] Stop: 08/27/20 00:59 Last Admin: 08/26/20 23:32 Dose: 100 mls/hr Documented by: Sodium Chloride (Normal Saline) 500 mls @ 999 mls/hr IV .BOLUS [facility] Last Admin: 08/26/20 11:56 Dose: 999 mls/hr Documented by: Iopamidol (Isovue Multipack-370 (76%)) 75 ml IVPUSH ONETIME STA Stop: 08/23/20 15:30 Last Admin: 08/23/20 15:30 Dose: 75 ml Documented by: Ketorolac Tromethamine (Toradol) 15 mg IVPUSH ONETIME ONE Stop: 08/22/20 18:26 Last Admin: 08/22/20 18:44 Dose: 15 mg Documented by: Non-Formulary Medication (Zolpidem) 10 mg PO BEDTIME PRN PRN Reason: Sleep Premarin 0.45 Mg 1 each PO DAILY [facility] Last Admin: 08/23/20 15:40 Dose: Not Given Documented by: Prochlorperazine Edisylate (Compazine) 10 mg IVPUSH ONETIME ONE Stop: 08/22/20 18:26 Last Admin: 08/22/20 18:44 Dose: 10 mg Documented by: Simvastatin (Zocor) 20 mg PO DAILY [facility] Last Admin: 08/23/20 15:41 Dose: Not Given Documented by: - Exam General: Alert, Oriented, Cooperative, No Acute Distress Lungs: Normal Respiratory Effort, Other (mild crackles in bases b/l) 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: Regular Rhythm, Bradycardia GI/Abdominal Exam: Normal Bowel Sounds, Soft, Non-Tender, No Distention Extremities: Normal Inspection, No Pedal Edema Sepsis Event Note - Evaluation Sepsis Screening Result: No Definite Risk - Focused Exam Vital Signs: Vital Signs Temp Pulse Resp BP Pulse Ox 08/27/20 08:02 36.3 C 59 L 16 106/56 L 93 L 08/27/20 03:24 36.1 C 48 L 15 95/53 L 91 L 08/26/20 23:39 36.4 C 46 L 16 117/67 92 L - Problem List & Annotations (1) Hypoxia SNOMED Code(s): 460226996 Code(s): R09.02 - HYPOXEMIA Status: Acute Current Visit: Yes (2) Transaminitis SNOMED Code(s): 672186983, 928706888 Code(s): R74.01 - ELEVATION OF LEVELS OF LIVER TRANSAMINASE LEVELS Status: Acute Current Visit: Yes (3) COVID-19 SNOMED Code(s): 550141770 Code(s): U07.1 - COVID-19 Status: Acute Current Visit: Yes (4) Fibromyalgia SNOMED Code(s): 507915613 Code(s): M79.7 - FIBROMYALGIA Status: Acute Current Visit: Yes (5) Hyperlipidemia SNOMED Code(s): 35833994 Code(s): E78.5 - HYPERLIPIDEMIA, UNSPECIFIED Status: Acute Current Visit: Yes (6) Depression SNOMED Code(s): 68925916 Code(s): F32.9 - MAJOR DEPRESSIVE DISORDER, SINGLE EPISODE, UNSPECIFIED Status: Acute Current Visit: Yes (7) H/O gastric bypass SNOMED Code(s): 270087347 Code(s): Z98.84 - BARIATRIC SURGERY STATUS Status: Acute Current Visit: Yes - Problem List Review Problem List Initiated/Reviewed/Updated: Yes - My Orders Last 24 Hours: My Active Orders 08/26/20 09:11 Telemetry Monitoring [Cardiac Monitoring] [RC] Q8H - Plan Plan:: Assessment and Plan: 1. Acute hypoxic respiratory failure secondary to COVID-19: - Will attempt to wean oxygen as tolerated today. Continue Combivent q4 REMIGIO, dexamethasone, Levaquin and incentive spirometer. Remdesivir 5-day course completed. 2. Bradycardia: - Patient on telemetry. Will continue to monitor. 3. DVT prophylaxis: - Lovenox 40 mg BID. 4. Past medical history of anxiety, depression, seizure, HLD, fibromyalgia and gastric bypass surgery: - Will continue home medications.
[2020-08-27] MEDS: PREMARIN 0.45 MG PO SCH (09:55)
[2020-08-27] MEDS: Levofloxacin/Dextrose 5%-Water 750 MG in Premix Bag 1 BAG IV SCH (09:55)
[2020-08-27] MEDS: Enoxaparin 40 MG/0.4 ML Syringe SUBCUT SCH (09:55)
[2020-08-27 11:49] VITALS: BP 110/68; PULSE 55
--- NOTE | 2020-08-27 12:43 | PCM.DCSUM1 ---
<Darek Cook - Last Filed: 08/27/20 13:43> Discharge Summary - Hospital Course Free Text/Narrative:: 55-year-old female admitted for acute hypoxic respiratory failure secondary to COVID19. She has a PMH of anxiety, depression, seizure, HLD, fibromyalgia and h/o gastric bypass surgery. CXR showed infiltrates in b/l lung bases. CT angio was negative for PE. Blood cultures were negative. Patient was treated with supplemental oxygen, Combivent, dexamethasone, remdesivir, lovenox and levaquin. She completed a 5 day course of remdesivir. Patient was successfully weaned off of oxygen on day of discharge. She was discharged with Levaquin for 2 more days, dexamethasone for 5 more days, Combivent inhaler to use prn SOB and PPI. Advised to follow-up with PCP on discharge. - Discharge Data Discharge Date: 08/27/20 Discharge Disposition: Home, Self-Care 01 Condition: Good - Referral to Home Health Primary Care Physician: Kirill Parkinson MD - Discharge Diagnosis/Problem(s) (1) Hypoxia SNOMED Code(s): 577292025 ICD Code: R09.02 - HYPOXEMIA Status: Acute (2) Transaminitis SNOMED Code(s): 039706495, 267561771 ICD Code: R74.01 - ELEVATION OF LEVELS OF LIVER TRANSAMINASE LEVELS Status: Acute (3) COVID-19 SNOMED Code(s): 223770502 ICD Code: U07.1 - COVID-19 Status: Acute (4) Fibromyalgia SNOMED Code(s): 143372608 ICD Code: M79.7 - FIBROMYALGIA Status: Acute (5) Hyperlipidemia SNOMED Code(s): 62425378 ICD Code: E78.5 - HYPERLIPIDEMIA, UNSPECIFIED Status: Acute (6) Depression SNOMED Code(s): 96996830 ICD Code: F32.9 - MAJOR DEPRESSIVE DISORDER, SINGLE EPISODE, UNSPECIFIED Status: Acute (7) H/O gastric bypass SNOMED Code(s): 804947428 ICD Code: Z98.84 - BARIATRIC SURGERY STATUS Status: Acute - Patient Instructions Diet: Usual Diet as Tolerated Activity: As Tolerated Notify Provider of: Fever, Increased Pain, Swelling and Redness, Drainage, Nausea and/or Vomiting Other/Special Instructions: worsening shortness of breath - Discharge Plan *PRESCRIPTION DRUG MONITORING PROGRAM REVIEWED*: Not Applicable *COPY OF PRESCRIPTION DRUG MONITORING REPORT IN PATIENT MAKEDA: Not Applicable Prescriptions/Med Rec: Albuterol/Ipratropium [Combivent Respimat] 1 puff IH Q4HR PRN 30 Days #1 inhaler PRN Reason: Shortness Of Breath dexAMETHasone [Dexamethasone] 6 mg PO DAILY 5 Days #15 tablet levoFLOXacin [Levaquin] 750 mg PO DAILY 2 Days #2 tab Pantoprazole [ProTONIX] 40 mg PO DAILY 5 Days #5 tab.cr Home Medications: Home Meds traZODone 100 mg PO BEDTIME 02/20/15 [History] Estrogens, Conjugated [Premarin] 1 mg PO DAILY 06/26/20 [History] Simvastatin 20 mg PO DAILY 06/26/20 [History] DULoxetine [Cymbalta] 60 mg PO DAILY 08/23/20 [History] Gabapentin [Neurontin] 600 mg PO DAILY 08/23/20 [History] Magnesium Oxide 400 mg PO BEDTIME 08/23/20 [History] Zolpidem [Ambien] 10 mg PO BEDTIME PRN 08/23/20 [History] Albuterol/Ipratropium [Combivent Respimat] 1 puff IH Q4HR PRN 30 Days #1 inhaler 08/27/20 [Rx] Pantoprazole [ProTONIX] 40 mg PO DAILY 5 Days #5 tab.cr 08/27/20 [Rx] dexAMETHasone [Dexamethasone] 6 mg PO DAILY 5 Days #15 tablet 08/27/20 [Rx] levoFLOXacin [Levaquin] 750 mg PO DAILY 2 Days #2 tab 08/27/20 [Rx] Oxygen Therapy Mode: Room Air Patient Handouts: Albuterol; Ipratropium respiratory inhalation spray (Combivent Respimat), COVID-19 Frequently Asked Questions, COVID-19, COVID-19: How to Protect Yourself and Others - CDC, Pantoprazole tablets, Levofloxacin tablets, Coronavirus Information 01/19/20, Dexamethasone tablets Referrals: Kirill Parkinson MD [Primary Care Provider] - 09/01/20 9:45 am - Discharge Summary/Plan Comment DC Time >30 min.: No - Patient Data Vitals - Most Recent: Last Vital Signs Temp 35.9 C L 08/27/20 11:47 Pulse 55 L 08/27/20 11:47 Resp 16 08/27/20 11:47 BP 110/68 08/27/20 11:47 Pulse Ox 91 L 08/27/20 11:47 Weight - Most Recent: 93.485 kg I&O - Last 24 hours: Intake & Output 08/26/20 08/27/20 08/27/20 22:59 06:59 14:59 Intake Total 3000 1500 Output Total 1800 1800 Balance 1200 -300 Lab Results - Last 24 hrs: Laboratory Results - last 24 hr 08/27/20 08/27/20 Range/Units 05:50 05:50 WBC 7.44 (4.0-11.0) K/uL RBC 4.19 L (4.30-5.90) M/uL Hgb 12.7 (12.0-16.0) g/dL Hct 38.5 (36.0-46.0) % MCV 91.9 (80.0-98.0) fL MCH 30.3 (27.0-32.0) pg MCHC 33.0 (31.0-37.0) g/dL RDW Std Deviation 44.1 (28.0-62.0) fl RDW Coeff of Etienne 13 (11.0-15.0) % Plt Count 270 (150-400) K/uL MPV 9.60 (7.40-12.00) fL Neut % (Auto) 47.1 L (48.0-80.0) % Lymph % (Auto) 41.5 H (16.0-40.0) % Grainger % (Auto) 10.6 (0.0-15.0) % Eos % (Auto) 0.7 (0.0-7.0) % Baso % (Auto) 0.1 (0.0-1.5) % Neut # (Auto) 3.5 (1.4-5.7) K/uL Lymph # (Auto) 3.1 H (0.6-2.4) K/uL Grainger # (Auto) 0.8 (0.0-0.8) K/uL Eos # (Auto) 0.1 (0.0-0.7) K/uL Baso # (Auto) 0.0 (0.0-0.1) K/uL Nucleated RBC % 0.0 /100WBC Nucleated RBCs # 0 K/uL Sodium 142 (136-145) mmol/L Potassium 3.5 (3.5-5.1) mmol/L Chloride 107 (98-107) mmol/L Carbon Dioxide 25.6 (21.0-32.0) mmol/L BUN 12 (7.0-18.0) mg/dL Creatinine 0.8 (0.6-1.0) mg/dL Est Cr Clr Drug Dosing 75.26 mL/min Estimated GFR (MDRD) > 60.0 ml/min Glucose 84 (74-106) mg/dL Calcium 8.3 L (8.5-10.1) mg/dL Total Bilirubin 0.3 (0.2-1.0) mg/dL AST 16 (15-37) IU/L ALT 37 (14-63) IU/L Alkaline Phosphatase 55 (46-116) U/L Total Protein 6.1 L (6.4-8.2) g/dL Albumin 2.8 L (3.4-5.0) g/dL Globulin 3.3 (2.6-4.0) g/dL Albumin/Globulin Ratio 0.9 (0.9-1.6) ZAKIYA Results - Last 24 hrs: Microbiology 08/22/20 19:20 Aerobic Blood Culture - Preliminary Blood - Venous - Lab Draw NO GROWTH AFTER 4 DAYS Anaerobic Blood Culture - Final 08/22/20 19:05 Aerobic Blood Culture - Preliminary Blood - Venous NO GROWTH AFTER 4 DAYS Anaerobic Blood Culture - Preliminary NO GROWTH AFTER 4 DAYS Med Orders - Current: Current Medications Acetaminophen (Tylenol) 650 mg PO Q4H PRN PRN Reason: Pain (Mild 1-3)/fever Last Admin: 08/26/20 21:03 Dose: 650 mg Documented by: Albuterol/Ipratropium (Combivent Respimat) 0 gm INH Q4HRRT [facility] Last Admin: 08/27/20 10:21 Dose: 1 puff Documented by: Dexamethasone (Dexamethasone) 6 mg PO DAILY [facility] Last Admin: 08/27/20 08:05 Dose: 6 mg Documented by: Duloxetine HCl (Cymbalta) 60 mg PO DAILY [facility] Last Admin: 08/27/20 08:04 Dose: 60 mg Documented by: Enoxaparin Sodium (Lovenox) 40 mg SUBCUT Q12H [facility] Last Admin: 08/27/20 09:55 Dose: 40 mg Documented by: Gabapentin (Neurontin) 600 mg PO DAILY@1900 [facility] Last Admin: 08/26/20 18:39 Dose: 600 mg Documented by: Guaifenesin (Mucinex) 600 mg PO TID [facility] Last Admin: 08/27/20 05:47 Dose: 600 mg Documented by: Levofloxacin/Dextrose 750 mg/ (Premix) 150 mls @ 100 mls/hr IV Q24H [facility] Last Admin: 08/27/20 09:55 Dose: 100 mls/hr Documented by: Magnesium Oxide (Magnesium Oxide) 400 mg PO BEDTIME [facility] Last Admin: 08/26/20 21:03 Dose: 400 mg Documented by: Ondansetron HCl (Zofran) 4 mg IVPUSH Q4H PRN PRN Reason: Nausea/Vomiting Pantoprazole Sodium (Protonix Iv) 40 mg IV DAILY [facility] Last Admin: 08/27/20 08:05 Dose: 40 mg Documented by: Premarin 0.45 Mg 1 each PO DAILY [facility] Last Admin: 08/27/20 09:55 Dose: Not Given Documented by: Zolpidem 10 Mg) 1 each PO BEDTIME PRN PRN Reason: Sleep Simvastatin (Zocor) 20 mg PO DAILY [facility] Last Admin: 08/27/20 08:04 Dose: 20 mg Documented by: Sodium Chloride (Saline Flush) 10 ml FLUSH ASDIRECTED PRN PRN Reason: Keep Vein Open Last Admin: 08/22/20 18:45 Dose: 10 ml Documented by: Sodium Chloride (Saline Flush) 2.5 ml FLUSH ASDIRECTED PRN PRN Reason: Keep Vein Open Last Admin: 08/22/20 18:45 Dose: 2.5 ml Documented by: Trazodone HCl (Trazodone) 100 mg PO BEDTIME [facility] Last Admin: 08/26/20 23:33 Dose: 100 mg Documented by: Discontinued Medications Acetaminophen (Tylenol Extra Strength) 1,000 mg PO ONETIME ONE Stop: 08/22/20 18:26 Last Admin: 08/22/20 18:45 Dose: 1,000 mg Documented by: Albuterol/Ipratropium (Combivent Respimat) 0 gm INH Q4H PRN PRN Reason: Dyspnea Dexamethasone (Dexamethasone) 10 mg IVPUSH ONETIME ONE Stop: 08/22/20 18:26 Last Admin: 08/22/20 18:46 Dose: 10 mg Documented by: Duloxetine HCl (Cymbalta) 60 mg PO DAILY [facility] Last Admin: 08/23/20 15:40 Dose: Not Given Documented by: Enoxaparin Sodium (Lovenox) 40 mg SUBCUT Q24H [facility] Last Admin: 08/23/20 02:02 Dose: Not Given Documented by: Gabapentin (Neurontin) 600 mg PO DAILY [facility] Last Admin: 08/23/20 15:40 Dose: Not Given Documented by: Guaifenesin (Mucinex) 600 mg PO TID PRN PRN Reason: Cough Sodium Chloride (Normal Saline) 1,000 mls @ 999 mls/hr IV STAT ONE Stop: 08/22/20 19:23 Last Admin: 08/22/20 18:47 Dose: 999 mls/hr Documented by: Ceftriaxone Sodium/Dextrose 2 (gm/ Premix) 50 mls @ 100 mls/hr IV ONETIME ONE Stop: 08/22/20 18:54 Last Admin: 08/22/20 18:45 Dose: 100 mls/hr Documented by: Remdesivir 200 mg/ Sodium (Chloride) 250 mls @ 250 mls/hr IV ONETIME ONE Stop: 08/23/20 00:13 Last Admin: 08/23/20 01:52 Dose: 250 mls/hr Documented by: Remdesivir 100 mg/ Sodium (Chloride) 100 mls @ 100 mls/hr IV Q24H [facility] Stop: 08/26/20 13:59 Last Admin: 08/23/20 15:41 Dose: Not Given Documented by: Remdesivir 100 mg/ Sodium (Chloride) 100 mls @ 100 mls/hr IV Q24H [facility] Stop: 08/27/20 00:59 Last Admin: 08/26/20 23:32 Dose: 100 mls/hr Documented by: Sodium Chloride (Normal Saline) 500 mls @ 999 mls/hr IV .BOLUS [facility] Last Admin: 08/26/20 11:56 Dose: 999 mls/hr Documented by: Iopamidol (Isovue Multipack-370 (76%)) 75 ml IVPUSH ONETIME STA Stop: 08/23/20 15:30 Last Admin: 08/23/20 15:30 Dose: 75 ml Documented by: Ketorolac Tromethamine (Toradol) 15 mg IVPUSH ONETIME ONE Stop: 08/22/20 18:26 Last Admin: 08/22/20 18:44 Dose: 15 mg Documented by: Non-Formulary Medication (Zolpidem) 10 mg PO BEDTIME PRN PRN Reason: Sleep Premarin 0.45 Mg 1 each PO DAILY [facility] Last Admin: 08/23/20 15:40 Dose: Not Given Documented by: Prochlorperazine Edisylate (Compazine) 10 mg IVPUSH ONETIME ONE Stop: 08/22/20 18:26 Last Admin: 08/22/20 18:44 Dose: 10 mg Documented by: Simvastatin (Zocor) 20 mg PO DAILY [facility] Last Admin: 08/23/20 15:41 Dose: Not Given Documented by: <Itz Kim - Last Filed: 08/29/20 22:40> Discharge Summary - Referral to Home Health Primary Care Physician: Kirill Parkinson MD - Patient Data Vitals - Most Recent: Last Vital Signs Temp 35.9 C L 08/27/20 11:47 Pulse 55 L 08/27/20 11:47 Resp 16 08/27/20 11:47 BP 110/68 08/27/20 11:47 Pulse Ox 91 L 08/27/20 11:47 Med Orders - Current: Current Medications Discontinued Medications Acetaminophen (Tylenol Extra Strength) 1,000 mg PO ONETIME ONE Stop: 08/22/20 18:26 Last Admin: 08/22/20 18:45 Dose: 1,000 mg Documented by: Acetaminophen (Tylenol) 650 mg PO Q4H PRN PRN Reason: Pain (Mild 1-3)/fever Last Admin: 08/26/20 21:03 Dose: 650 mg Documented by: Albuterol/Ipratropium (Combivent Respimat) 0 gm INH Q4H PRN PRN Reason: Dyspnea Albuterol/Ipratropium (Combivent Respimat) 0 gm INH Q4HRRT [facility] Last Admin: 08/27/20 13:11 Dose: 1 puff Documented by: Dexamethasone (Dexamethasone) 10 mg IVPUSH ONETIME ONE Stop: 08/22/20 18:26 Last Admin: 08/22/20 18:46 Dose: 10 mg Documented by: Dexamethasone (Dexamethasone) 6 mg PO DAILY [facility] Last Admin: 08/27/20 08:05 Dose: 6 mg Documented by: Duloxetine HCl (Cymbalta) 60 mg PO DAILY [facility] Last Admin: 08/23/20 15:40 Dose: Not Given Documented by: Duloxetine HCl (Cymbalta) 60 mg PO DAILY [facility] Last Admin: 08/27/20 08:04 Dose: 60 mg Documented by: Enoxaparin Sodium (Lovenox) 40 mg SUBCUT Q24H [facility] Last Admin: 08/23/20 02:02 Dose: Not Given Documented by: Enoxaparin Sodium (Lovenox) 40 mg SUBCUT Q12H [facility] Last Admin: 08/27/20 09:55 Dose: 40 mg Documented by: Gabapentin (Neurontin) 600 mg PO DAILY [facility] Last Admin: 08/23/20 15:40 Dose: Not Given Documented by: Gabapentin (Neurontin) 600 mg PO DAILY@1900 [facility] Last Admin: 08/26/20 18:39 Dose: 600 mg Documented by: Guaifenesin (Mucinex) 600 mg PO TID PRN PRN Reason: Cough Guaifenesin (Mucinex) 600 mg PO TID [facility] Last Admin: 08/27/20 13:10 Dose: 600 mg Documented by: Sodium Chloride (Normal Saline) 1,000 mls @ 999 mls/hr IV STAT ONE Stop: 08/22/20 19:23 Last Admin: 08/22/20 18:47 Dose: 999 mls/hr Documented by: Ceftriaxone Sodium/Dextrose 2 (gm/ Premix) 50 mls @ 100 mls/hr IV ONETIME ONE Stop: 08/22/20 18:54 Last Admin: 08/22/20 18:45 Dose: 100 mls/hr Documented by: Remdesivir 200 mg/ Sodium (Chloride) 250 mls @ 250 mls/hr IV ONETIME ONE Stop: 08/23/20 00:13 Last Admin: 08/23/20 01:52 Dose: 250 mls/hr Documented by: Remdesivir 100 mg/ Sodium (Chloride) 100 mls @ 100 mls/hr IV Q24H [facility] Stop: 08/26/20 13:59 Last Admin: 08/23/20 15:41 Dose: Not Given Documented by: Levofloxacin/Dextrose 750 mg/ (Premix) 150 mls @ 100 mls/hr IV Q24H [facility] Last Admin: 08/27/20 09:55 Dose: 100 mls/hr Documented by: Remdesivir 100 mg/ Sodium (Chloride) 100 mls @ 100 mls/hr IV Q24H [facility] Stop: 08/27/20 00:59 Last Admin: 08/26/20 23:32 Dose: 100 mls/hr Documented by: Sodium Chloride (Normal Saline) 500 mls @ 999 mls/hr IV .BOLUS [facility] Last Admin: 08/26/20 11:56 Dose: 999 mls/hr Documented by: Iopamidol (Isovue Multipack-370 (76%)) 75 ml IVPUSH ONETIME STA Stop: 08/23/20 15:30 Last Admin: 08/23/20 15:30 Dose: 75 ml Documented by: Ketorolac Tromethamine (Toradol) 15 mg IVPUSH ONETIME ONE Stop: 08/22/20 18:26 Last Admin: 08/22/20 18:44 Dose: 15 mg Documented by: Magnesium Oxide (Magnesium Oxide) 400 mg PO BEDTIME [facility] Last Admin: 08/26/20 21:03 Dose: 400 mg Documented by: Non-Formulary Medication (Zolpidem) 10 mg PO BEDTIME PRN PRN Reason: Sleep Ondansetron HCl (Zofran) 4 mg IVPUSH Q4H PRN PRN Reason: Nausea/Vomiting Pantoprazole Sodium (Protonix Iv) 40 mg IV DAILY [facility] Last Admin: 08/27/20 08:05 Dose: 40 mg Documented by: Premarin 0.45 Mg 1 each PO DAILY [facility] Last Admin: 08/23/20 15:40 Dose: Not Given Documented by: Premarin 0.45 Mg 1 each PO DAILY [facility] Last Admin: 08/27/20 09:55 Dose: Not Given Documented by: Zolpidem 10 Mg) 1 each PO BEDTIME PRN PRN Reason: Sleep Prochlorperazine Edisylate (Compazine) 10 mg IVPUSH ONETIME ONE Stop: 08/22/20 18:26 Last Admin: 08/22/20 18:44 Dose: 10 mg Documented by: Simvastatin (Zocor) 20 mg PO DAILY [facility] Last Admin: 08/23/20 15:41 Dose: Not Given Documented by: Simvastatin (Zocor) 20 mg PO DAILY [facility] Last Admin: 08/27/20 08:04 Dose: 20 mg Documented by: Sodium Chloride (Saline Flush) 10 ml FLUSH ASDIRECTED PRN PRN Reason: Keep Vein Open Last Admin: 08/22/20 18:45 Dose: 10 ml Documented by: Sodium Chloride (Saline Flush) 2.5 ml FLUSH ASDIRECTED PRN PRN Reason: Keep Vein Open Last Admin: 08/22/20 18:45 Dose: 2.5 ml Documented by: Trazodone HCl (Trazodone) 100 mg PO BEDTIME [facility] Last Admin: 08/26/20 23:33 Dose: 100 mg Documented by: - Free Text/Narrative Note: I have seen and evaluated the patient. I have discussed findings and treatment plan with resident. I agree with the assessment and plan in the following note.
== END 2020-08-27 14:20 | disposition home or self-care (01) | DRG 177 ==
LOC: MW.ED 17:52 → MW.MS 20:20 → OBSVTOIN 08-24 10:42
PROVIDERS: ADMIT Student in an Organized Health Care Education/Training Program; ATTEND Student in an Organized Health Care Education/Training Program
PROC: XW033E5 Introduction of Remdesivir Anti-infective into Peripheral Vein, Percutaneous Approach, New Technology Group 5 (ICD-10-PCS; principal; 2020-08-22)
DX: U07.1 COVID-19 (principal); J96.01 Acute respiratory failure with hypoxia; R74.01 Elevation of levels of liver transaminase levels; R09.02 Hypoxemia; E78.5 Hyperlipidemia, unspecified; H54.7 Unspecified visual loss; E78.00 Pure hypercholesterolemia, unspecified; R91.8 Other nonspecific abnormal finding of lung field; Z98.84 Bariatric surgery status; M79.7 Fibromyalgia; G89.29 Other chronic pain; M54.2 Cervicalgia; M81.0 Age-related osteoporosis without current pathological fracture; F32.9 Major depressive disorder, single episode, unspecified; Z90.49 Acquired absence of other specified parts of digestive tract; F41.9 Anxiety disorder, unspecified; Z90.710 Acquired absence of both cervix and uterus; Z79.899 Other long term (current) drug therapy
CPT/HCPCS: 36415 ×3; 36600; 71045; 71275; 80053 ×3; 81003; 82803; 83605; 83735 ×2; 84100; 84484; 85025 ×3; 85379; 85610; 85730; 86140; 87040 ×2; 93005; 94664; 96365; 96367; 96372 ×2; 96375 ×2; 96376 ×2; 99285; A9270 ×12; C9113 ×2; G0378 ×3; J0696; J0780; J1100; J1650 ×4; J1885; J1956 ×2; J7030; J7050; J8540 ×2; Q9967; U0002; 93010; 94640; 99220; 99225; 99231; 99232; 99238; 99284; J7040

== ENCOUNTER 2020-12-16 11:11 | Emergency (ER) | payer MEDICARE, MEDICAID ==
--- NOTE | 2020-12-16 11:17 | EDM.PDOC ---
ED HPI GENERAL MEDICAL PROBLEM - General Chief Complaint: Laceration Stated Complaint: RT HAND CUT Time Seen by Provider: 12/16/20 11:16 Source of Information: Reports: Patient History Limitations: Reports: No Limitations - History of Present Illness INITIAL COMMENTS - FREE TEXT/NARRATIVE: HISTORY AND PHYSICAL: History of present illness: Mariela is a 55-year-old female presented to the ER with laceration on right third distal phalanx on the anterior side. States that she was in a boy[place] this morning getting out of her shower and cut herself on a piece of glass from a candle on her counter. Patient currently rates her pain 1 out of 10, constant, nonradiating. Pt denies any associated or constitutional symptoms at this time. Patient reports her last tetanus immunization was "4 or 5 years ago". Patient declines tetanus immunization at this time Review of systems: As per history of present illness and below otherwise all systems reviewed and negative. Past medical history: As per history of present illness and as reviewed below otherwise noncontributory. Surgical history: As per history of present illness and as reviewed below otherwise noncontributory. Social history: See social history for further information Family history: As per history of present illness and as reviewed below otherwise noncontributory. Physical exam: General: Well developed and well nourished. Alert and orientated x 3. Nontoxic in appearance and in no acute distress. Vital signs are stable and have been reviewed by me. Nursing notes were reviewed. HEENT: Atraumatic, normocephalic, pupils equal and reactive bilaterally, negative for conjunctival pallor or scleral icterus, mucous membranes moist, trachea midline. No drooling or trismus noted. No meningeal signs. No hot potato voice noted. Lungs: Clear to auscultation bilaterally. No wheezes, rales, or rhonchi. Chest nontender. Normal work of breathing, no accessory muscles used. Heart: S1S2, regular rate and rhythm without overt murmur, gallops, or rubs. No JVD. No peripheral edema Skin: 2cm lacertion to the cervantes aspect of the RT 3rd distal phalanx. Intact, warm, dry. No rashes noted. Hematologic: No petechiae or purpra. Mucosa appropriate color and normal nail bed color and refill. Extremities: SEE SKIN; moves all extremities per self without difficulty or deficits. Neurovascular unremarkable. Neuro: Awake, alert, oriented. Motor and sensory unremarkable throughout. Exam nonfocal. Psychiatric: Mood and affect are appropriate. Normal thought process. Answering questions appropriately. Notes: *This patient was seen and evaluated during the 2019 SARS-CoV-2 novel coronavirus pandemic period. Community viral transmission is ongoing at time of this encounter and the emergency department is operating under pandemic response procedures. I have talked with the patient about today's findings, in addition to providing specific details for plan of care. Reassessment at the time of disposition dem onstrates that the patient is in no acute distress. The patient is stable for discharge, counseling was provided and we discussed in great detail signs and symptoms that would prompt them to return to the Emergency Department. Medication, follow up and supportive care measures were reviewed and discussed. Voices understanding and is agreeable to plan of care. Denies any further questions or concerns at this time. Diagnostics: None Therapeutics: Tdap, lidocaine, bacitracin Prescription: None Impression: Laceration Plan: 1. Keep the area clean and dry. Continue to monitor for signs of infection. Sutures to be removed in 7-10 days. 2. Tylenol and/or ibuprofen as needed for pain management. 3. Please follow-up with your primary care provider in the next 1-2 days. Return to the ED as needed and as discussed. Definitive disposition and diagnosis as appropriate pending reevaluation and review of above. right middle finger Pain Score (Numeric/FACES): 1 - Related Data Allergies Allergy/AdvReac Type Severity Reaction Status Date / Time No Known Allergies Allergy Verified 12/16/20 11:35 Home Meds: Home Meds traZODone 100 mg PO BEDTIME 02/20/15 [History] Estrogens, Conjugated [Premarin] 1 mg PO DAILY 06/26/20 [History] Simvastatin 20 mg PO DAILY 06/26/20 [History] DULoxetine [Cymbalta] 60 mg PO DAILY 08/23/20 [History] Gabapentin [Neurontin] 600 mg PO DAILY 08/23/20 [History] Albuterol/Ipratropium [Combivent Respimat] 1 puff IH Q4HR PRN 30 Days #1 inhaler 08/27/20 [Rx] Eszopiclone [Lunesta] 12/16/20 [History] Non-Formulary Medication [NF Drug] 1 each PO DAILY 12/16/20 [History] Past Medical History - Past Health History Medical/Surgical History: Denies Medical/Surgical History HEENT History: Reports: Impaired Vision Other HEENT History: wears glasses 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 History: Reports: High Cholesterol Respiratory History: Reports: None 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: Musculoskeletal History: Reports: Fibromyalgia, Neck Pain, Chronic, Osteoporosis Neurological History: Reports: Seizure Psychiatric History: Reports: Anxiety, Depression - Infectious Disease History Infectious Disease History: Reports: Chicken Pox - Past Surgical History GI Surgical History: Reports: Bariatric Procedure, Cholecystectomy Female Surgical History: Reports: Dilitation & Evacuation, Other (See Below) Other Female Surgeries/Procedures: partial hysterectomy Neurological Surgical History: Reports: C-Spine Other Neurological Surgeries/Procedures: 5&6 spinal fusion Social & Family History - Family History Family Medical History: No Pertinent Family History - Caffeine Use Caffeine Use: Reports: Coffee ED ROS GENERAL - Review of Systems Review Of Systems: Comprehensive ROS is negative, except as noted in HPI. ED EXAM, SKIN/RASH Exam: See Below (See dictation) ED SKIN PROCEDURES - Laceration/Wound Repair Right third digit Appearance: Superficial, Subcutaneous, Linear Distal NVT: Neuro & Vascular Intact, No Tendon Injury Anesthetic Type: Local Local Anesthesia - Lidocaine (Xylocaine): 1% Plain Local Anesthetic Volume: 2cc Skin Prep: Chlorhexidine (Hibiciens), Saline, Sterile Drape Saline Irrigation (cc's): 250 Exploration/Debridement/Repair: Wound Explored, In a Bloodless Field, Explored to Base, No Foreign Material Found Closed with: Sutures Lac/Wound length In cm: 2 Suture Size: 4-0 # of Sutures: 5 Suture Type: Nylon, Interrupted, Simple Drain Placement: No Sterile Dressing Applied: Provider Tetanus Status Addressed: Yes Complications: No Course - Vital Signs Last Recorded V/S: Last Vital Signs Temp 96.5 F L 12/16/20 11:49 Pulse 73 12/16/20 11:49 Resp 18 12/16/20 11:49 BP 143/79 H 12/16/20 11:49 Pulse Ox 96 12/16/20 11:49 - Orders/Labs/Meds Orders: Active Orders 24 hr Category Date Time Status Vaccines to be Administered [RC] PER UNIT ROUTINE Care 12/16/20 11:22 Active Meds: Medications Discontinued Medications Generic Name Dose Route Start Last Admin Trade Name Miguelito PRN Reason Stop Dose Admin Bacitracin 1 dose 12/16/20 11:22 12/16/20 11:48 Bacitracin Oint 1 Gm TOP 12/16/20 11:23 1 dose ONETIME ONE Administration Diphtheria/Tetanus/Acell Pertussis 0.5 ml 12/16/20 11:22 Boostrix IM 12/16/20 11:23 .ONCE ONE Lidocaine HCl 2 ml 12/16/20 11:22 12/16/20 11:48 Xylocaine-Mpf 1% INJECT 12/16/20 11:23 2 ml ONETIME ONE Administration Departure - Departure Time of Disposition: 11:39 Disposition: Home, Self-Care 01 Clinical Impression: Laceration - Discharge Information Instructions: Laceration Care, Adult, [id number] Referrals: Kirill Parkinson MD [Primary Care Provider] - Forms: ED Department Discharge Additional Instructions: The following information is given to patients seen in the emergency department who are being discharged to home. This information is to outline your options for follow-up care. We provide all patients seen in our emergency department with a follow-up referral. The need for follow-up, as well as the timing and circumstances, are variable depending upon the specifics of your emergency department visit. If you don't have a primary care physician on staff, we will provide you with a referral. We always advise you to contact your personal physician following an emergency department visit to inform them of the circumstance of the visit and for follow-up with them and/or the need for any referrals to a consulting specialist. The emergency department will also refer you to a specialist when appropriate. This referral assures that you have the opportunity for follow-up care with a specialist. All of these measure are taken in an effort to provide you with optimal care, which includes your follow-up. Under all circumstances we always encourage you to contact your private physician who remains a resource for coordinating your care. When calling for follow-up care, please make the office aware that this follow-up is from your recent emergency room visit. If for any reason you are refused follow-up, please contact the [facility] Emergency Department at and asked to speak to the emergency department charge nurse. [facility] [address] [place] [address] [facility] [address] [place] [address] Thank you for choosing the [facility] emergency department in [place] for your medical needs today. It was a pleasure caring for you. Today you were seen in the emergency department for finger laceration. 1. Keep the area clean and dry. Continue to monitor for signs of infection. Sutures to be removed in 7-10 days. 2. Tylenol and/or ibuprofen as needed for pain management. 3. Please follow-up with your primary care provider in the next 1-2 days. Return to the ED as needed and as discussed. Sepsis Event Note (ED) - Focused Exam Vital Signs: Vital Signs Temp Pulse Resp BP Pulse Ox 12/16/20 11:49 96.5 F L 73 18 143/79 H 96 12/16/20 11:38 18 - My Orders Last 24 Hours: My Active Orders 12/16/20 11:22 Vaccines to be Administered [RC] PER UNIT ROUTINE - Assessment/Plan Last 24 Hours: My Active Orders 12/16/20 11:22 Vaccines to be Administered [RC] PER UNIT ROUTINE
[2020-12-16] MEDS ORDERED: Lidocaine 1% PF 2 ML SDV INJECT ONE (11:22)
[2020-12-16] MEDS ORDERED: Diphtheria,Pertussis(Acell),Tetanus Vaccine 0.5 ML Syringe IM ONE (11:22)
[2020-12-16] MEDS ORDERED: Bacitracin Oint 1 GM U/D Packet TOP ONE (11:22)
[2020-12-16 11:50] VITALS: BP 143/79; PULSE 73
== END 2020-12-16 11:59 | disposition home or self-care (01) ==
LOC: MW.ED 11:11
DX: S61.212A Laceration without foreign body of right middle finger without damage to nail, initial encounter (principal); E78.00 Pure hypercholesterolemia, unspecified; Z79.899 Other long term (current) drug therapy; W25.XXXA Contact with sharp glass, initial encounter
CPT/HCPCS: 12001; 99282-25

== ENCOUNTER 2021-01-29 17:37 | Emergency (ER) | payer MEDICARE, MEDICAID ==
[2021-01-29 18:06] VITALS: BP 185/98; PULSE 96
--- NOTE | 2021-01-29 18:06 | EDM.PDOC ---
ED HPI GENERAL MEDICAL PROBLEM - General Chief Complaint: Genitourinary Problem Stated Complaint: POSSIBLE KIDNEY-RELATED PAIN Time Seen by Provider: 01/29/21 17:53 Source of Information: Reports: Patient History Limitations: Reports: No Limitations - History of Present Illness INITIAL COMMENTS - FREE TEXT/NARRATIVE: HISTORY AND PHYSICAL: History of present illness: Patient is a 55-year-old female who presents to the ED today with concern of dental infection of her bottom tooth that has been ongoing for the past 3 months. Patient states that she finished a dose of Augmentin 2 weeks ago and states that at the time it was slightly improving her infection but shortly after the antibiotic course was done, the infection has returned. Patient states that there is a continual draining of this area under her tooth. Patient states she has an appointment in a week to get the tooth assessed again by a dentist. Patient states that she had a prior tooth abscess in the past which had to get her tooth removed and states that her symptoms are similar today. Patient states that she is also had "random "back spasms and is concerned that she has a urinary tract infection. Patient states she is not currently having any back spasms at this point in time. Patient denies any other symptoms or concerns. Patient denies fever, chills, chest pain, shortness of breath, or cough. Denies headache, neck stiff ness, change in vision, syncope, or near syncope. Denies nausea, vomiting, abdominal pain, diarrhea, constipation, or dysuria. Has not noted any blood in urine or stool. Patient has been eating and drinking appropriately. Review of systems: As per history of present illness and below otherwise all systems reviewed and negative. Past medical history: As per history of present illness and as reviewed below otherwise noncontributory. Surgical history: As per history of present illness and as reviewed below otherwise noncontributory. Social history: See social history for further information Family history: As per history of present illness and as reviewed below otherwise noncontributory. Physical exam: General: Patient is alert, oriented, and in no acute distress. Patient sitting comfortably on exam table. Vitals stable and reviewed by me. HEENT: At the base of tooth #19 just at the gumline, there appears to what was a possible abscess that is already spontaneously draining. Otherwise, atraumatic, normocephalic, pupils equal and reactive bilaterally, negative for conjunctival pallor or scleral icterus, mucous membranes moist, TMs normal bilaterally, throat clear, neck supple, nontender, trachea midline. No drooling or trismus noted. No meningeal signs. No hot potato voice noted. Lungs: Clear to auscultation, breath sounds equal bilaterally, chest nontender. Heart: S1S2, regular rate and rhythm without overt murmur Abdomen: Soft, nondistended, nontender. Negative for masses or hepatosplenomegaly. Negative for costovertebral tenderness. Pelvis: Stable nontender. Genitourinary: Deferred. Rectal: Deferred. Skin: Intact, warm, dry. No lesions or rashes noted. Extremities: Atraumatic, negative for cords or calf pain. Neurovascular unrema rkable. Neuro: Awake, alert, oriented. Cranial nerves II through XII unremarkable. Cerebellum unremarkable. Motor and sensory unremarkable throughout. Exam nonfocal. Notes: I do not see any obvious drainable abscess at this time, but there is an area of what looks like an abscess that may have already been draining. Patient is anxious about antibiotics not working properly for her dental infection and would like me to try to culture the area under her tooth. Patient finished a course of augmentin 2 weeks ago for her tooth with some mild improvement of her symptoms at the time which shortly returned after stopping the antibiotics. We will try clindamycin at this time. Discussed with patient that she needs to follow-up with a dentist for definitive treatment. Symptoms are prompt return to the ED thoroughly discussed with patient. Discussed importance for follow-up with a dentist and a primary care provider. Voices understanding and is agreeable to plan of care. Denies any further qu estions or concerns at this time. Diagnostics: UA, cg, wound culture Therapeutics: Dental balls Prescription: Clindamycin Impression: Dental infection Plan: 1. Please take medication as prescribed. 2. Tylenol and/or ibuprofen as directed and as needed for pain management. 3. "Tooth Balls" have been given to you; apply along the gumline every 2-3 hours as needed. Do not swallow these; external use only. 4. Follow-up with a dentist for definitive care. Return to the ED as needed and as discussed. Definitive disposition and diagnosis as appropriate pending reevaluation and review of above. Bilat flank, tooth Pain Score (Numeric/FACES): 8 - Related Data Allergies Allergy/AdvReac Type Severity Reaction Status Date / Time No Known Allergies Allergy Verified 01/29/21 18:06 Home Meds: Home Meds traZODone 100 mg PO BEDTIME 02/20/15 [History] Estrogens, Conjugated [Premarin] 1 mg PO DAILY 06/26/20 [History] Simvastatin 20 mg PO DAILY 06/26/20 [History] DULoxetine [Cymbalta] 60 mg PO DAILY 08/23/20 [History] Gabapentin [Neurontin] 600 mg PO DAILY 08/23/20 [History] Albuterol/Ipratropium [Combivent Respimat] 1 puff IH Q4HR PRN 30 Days #1 inhaler 08/27/20 [Rx] Eszopiclone [Lunesta] 12/16/20 [History] Non-Formulary Medication [NF Drug] 1 each PO DAILY 12/16/20 [History] Clindamycin HCl 300 mg PO TID 7 Days #21 capsule 01/29/21 [Rx] Zolpidem [Ambien] 10 mg PO DAILY 01/29/21 [History] Past Medical History - Past Health History Medical/Surgical History: Denies Medical/Surgical History HEENT History: Reports: Impaired Vision Other HEENT History: wears glasses 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 History: Reports: High Cholesterol Respiratory History: Reports: None 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: Musculoskeletal History: Reports: Fibromyalgia, Neck Pain, Chronic, Osteoporosis Neurological History: Reports: Seizure Psychiatric History: Reports: Anxiety, Depression - Infectious Disease History Infectious Disease History: Reports: Chicken Pox, Novel Coronavirus - Past Surgical History GI Surgical History: Reports: Bariatric Procedure, Cholecystectomy Female Surgical History: Reports: Dilitation & Evacuation, Other (See Below) Other Female Surgeries/Procedures: partial hysterectomy Neurological Surgical History: Reports: C-Spine Other Neurological Surgeries/Procedures: 5&6 spinal fusion Social & Family History - Family History Family Medical History: No Pertinent Family History - Caffeine Use Caffeine Use: Reports: Coffee ED ROS GENERAL - Review of Systems Review Of Systems: Comprehensive ROS is negative, except as noted in HPI. ED EXAM, GENERAL - Physical Exam Exam: See Below (see dictation) Course - Vital Signs Last Recorded V/S: Last Vital Signs Temp 97.6 F 01/29/21 18:03 Pulse 96 01/29/21 18:03 Resp 18 01/29/21 18:03 BP 185/98 H 01/29/21 18:03 Pulse Ox 99 01/29/21 18:03 - Orders/Labs/Meds Orders: Active Orders 24 hr Category Date Time Status CULTURE WOUND [RM] Stat Lab 01/29/21 18:24 Received Labs: Laboratory Tests 01/29/21 01/29/21 Range/Units 18:24 18:24 Urine Color YELLOW Urine Appearance CLEAR Urine pH 6.0 (5.0-8.0) Ur Specific [place] 1.015 (1.001-1.035) Urine Protein NEGATIVE (NEGATIVE) mg/dL Urine Glucose (UA) NEGATIVE (NEGATIVE) mg/dL Urine Ketones TRACE H (NEGATIVE) mg/dL Urine Occult Blood NEGATIVE (NEGATIVE) Urine Nitrite NEGATIVE (NEGATIVE) Urine Bilirubin NEGATIVE (NEGATIVE) Urine Urobilinogen 0.2 (<2.0) EU/dL Ur Leukocyte Esterase NEGATIVE (NEGATIVE) Urine HCG, Qual NEGATIVE (NEGATIVE) Meds: Medications Discontinued Medications Generic Name Dose Route Start Last Admin Trade Name Pedritoq PRN Reason Stop Dose Admin Benzocaine 2 each 01/29/21 18:36 01/29/21 18:56 Benzocaine 20% Topical [place] Ud MUCMEM 01/29/21 18:37 2 each ONETIME ONE Administration Lidocaine HCl 15 ml 01/29/21 18:36 01/29/21 18:56 Lidocaine 2% Viscous Solution 15 Ml Cup PO 01/29/21 18:37 15 ml ONETIME ONE Administration Departure - Departure Time of Disposition: 18:37 Disposition: Home, Self-Care 01 Clinical Impression: Tooth infection - Discharge Information Prescriptions: Clindamycin HCl 300 mg PO TID 7 Days #21 capsule Instructions: Dental Abscess, [id number] Referrals: PCP,None [Primary Care Provider] - Forms: ED Department Discharge Additional Instructions: The following information is given to patients seen in the emergency department who are being discharged to home. This information is to outline your options for follow-up care. We provide all patients seen in our emergency department with a follow-up referral. The need for follow-up, as well as the timing and circumstances, are variable depending upon the specifics of your emergency department visit. If you don't have a primary care physician on staff, we will provide you with a referral. We always advise you to contact your personal physician following an emergency department visit to inform them of the circumstance of the visit and for follow-up with them and/or the need for any referrals to a consulting specialist. The emergency department will also refer you to a specialist when appropriate. This referral assures that you have the opportunity for follow-up care with a specialist. All of these measure are taken in an effort to provide you with optimal care, which includes your follow-up. Under all circumstances we always encourage you to contact your private physician who remains a resource for coordinating your care. When calling for follow-up care, please make the office aware that this follow-up is from your recent emergency room visit. If for any reason you are refused follow-up, please contact the [facility] Emergency Department at and asked to speak to the emergency department charge nurse. [facility] [address] [place] [id number] [facility] [address] [place] [id number] 1. Please take medication as prescribed. 2. Tylenol and/or ibuprofen as directed and as needed for pain management. 3. "Tooth Balls" have been given to you; apply along the gumline every 2-3 hours as needed. Do not swallow these; external use only. 4. Follow-up with a dentist for definitive care and your primary care provider. Return to the ED as needed and as discussed. Sepsis Event Note (ED) - Focused Exam Vital Signs: Vital Signs Temp Pulse Resp BP Pulse Ox 01/29/21 18:03 97.6 F 96 18 185/98 H 99 - My Orders Last 24 Hours: My Active Orders 01/29/21 18:24 CULTURE WOUND [RM] Stat - Assessment/Plan Last 24 Hours: My Active Orders 01/29/21 18:24 CULTURE WOUND [RM] Stat
[2021-01-29] MEDS ORDERED: Benzocaine 20% Topical Spray UD MUCMEM ONE (18:36)
[2021-01-29] MEDS ORDERED: Lidocaine 2% Viscous Solution 15 ML Cup PO ONE (18:36)
== END 2021-01-29 19:00 | disposition home or self-care (01) ==
LOC: MW.ED 17:37
DX: K04.7 Periapical abscess without sinus (principal); E78.00 Pure hypercholesterolemia, unspecified; Z79.899 Other long term (current) drug therapy
CPT/HCPCS: 81003; 81025; 87070; 99283; A9270; 99282

== ENCOUNTER 2021-04-17 05:54 | Emergency (ER) | payer MEDICARE, MEDICAID ==
[2021-04-17] MEDS ORDERED: Metoclopramide 10 MG/2 ML SDV IVPUSH ONE (06:21)
[2021-04-17] MEDS ORDERED: diphenhydrAMINE 50 MG/ML SDV IVPUSH ONE (06:21)
--- NOTE | 2021-04-17 06:24 | EDM.PDOC ---
<Bandar Sam - Last Filed: 04/17/21 06:21> ED HPI GENERAL MEDICAL PROBLEM - General Chief Complaint: Headache Stated Complaint: SEVERE AND PERSISTENT HEADACHES Time Seen by Provider: 04/17/21 06:22 Source of Information: Reports: Patient History Limitations: Reports: No Limitations - History of Present Illness INITIAL COMMENTS - FREE TEXT/NARRATIVE: Patient is a 55-year-old female presents today for headache for the past 3 weeks. Patient states that previously she was found to have some type of mass or increased pressure in her brain is been getting recurrent LPs. She had a lumbar puncture 3 weeks ago and since that time has had a headache. Patient is a headaches may worsen if she stands up to any activities that may better when laying flat. There is a aching squeezing feeling of her head. The patient denies any neurological symptoms such as vision changes numbness weakness or extremities. Patient has not tried any medicines at home for the headache. - Related Data Allergies Allergy/AdvReac Type Severity Reaction Status Date / Time No Known Allergies Allergy Verified 04/17/21 06:15 Home Meds: Home Meds traZODone 100 mg PO BEDTIME 02/20/15 [History] Estrogens, Conjugated [Premarin] 1 mg PO DAILY 06/26/20 [History] Simvastatin 20 mg PO DAILY 06/26/20 [History] DULoxetine [Cymbalta] 60 mg PO DAILY 08/23/20 [History] Gabapentin [Neurontin] 600 mg PO DAILY 08/23/20 [History] Albuterol/Ipratropium [Combivent Respimat] 1 puff IH Q4HR PRN 30 Days #1 inhaler 08/27/20 [Rx] Eszopiclone [Lunesta] 12/16/20 [History] Non-Formulary Medication [NF Drug] 1 each PO DAILY 12/16/20 [History] Clindamycin HCl 300 mg PO TID 7 Days #21 capsule 01/29/21 [Rx] Zolpidem [Ambien] 10 mg PO DAILY 01/29/21 [History] Butalb/Acetaminophen/Caffeine [Fioricet 50-300-40 mg Capsule] 1 each PO Q6H PRN #28 capsule 04/17/21 [Rx] Ibuprofen [Motrin] 600 mg PO Q6H PRN #28 tab 04/17/21 [Rx] Past Medical History - Past Health History Medical/Surgical History: Denies Medical/Surgical History HEENT History: Reports: Impaired Vision Other HEENT History: wears glasses 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 History: Reports: High Cholesterol Respiratory History: Reports: None Other Respiratory History: severe covid 2020 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: Musculoskeletal History: Reports: Fibromyalgia, Neck Pain, Chronic, Osteoporosis Neurological History: Reports: Seizure Psychiatric History: Reports: Anxiety, Depression - Infectious Disease History Infectious Disease History: Reports: Chicken Pox, Novel Coronavirus - Past Surgical History GI Surgical History: Reports: Bariatric Procedure, Cholecystectomy Female Surgical History: Reports: Dilitation & Evacuation, Other (See Below) Other Female Surgeries/Procedures: partial hysterectomy Neurological Surgical History: Reports: C-Spine Other Neurological Surgeries/Procedures: 5&6 spinal fusion Social & Family History - Family History Family Medical History: No Pertinent Family History - Tobacco Use Tobacco Use Status *Q: Never Tobacco User - Caffeine Use Caffeine Use: Reports: Coffee - Recreational Drug Use Recreational Drug Use: No ED ROS GENERAL - Review of Systems Review Of Systems: See Below Constitutional: Reports: No Symptoms HEENT: Reports: No Symptoms Respiratory: Reports: No Symptoms 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: Reports: No Symptoms Endocrine: Reports: No Symptoms GI/Abdominal: Reports: No Symptoms : Reports: No Symptoms Musculoskeletal: Reports: No Symptoms Skin: Reports: No Symptoms Neurological: Reports: Headache Psychiatric: Reports: No Symptoms Hematologic/Lymphatic: Reports: No Symptoms Immunologic: Reports: No Symptoms - Physical Exam Exam: See Below Exam Limited By: No Limitations General Appearance: Alert, WD/WN, No Apparent Distress Eye Exam: Bilateral Eye: EOMI, PERRL Head Exam: Atraumatic, Normocephalic Respiratory/Chest: No Respiratory Distress, Lungs Clear, Normal Breath Sounds 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: Normal Peripheral Pulses, Regular Rate, Rhythm GI/Abdominal: Normal Bowel Sounds, Soft, Non-Tender Neuro Exam (Abbreviated): Alert, Oriented, CN II-XII Intact, Normal Cognition Departure - Departure Disposition: Home, Self-Care 01 Clinical Impression: Post lumbar puncture headache - Discharge Information Prescriptions: Butalb/Acetaminophen/Caffeine [Fioricet 50-300-40 mg Capsule] 1 each PO Q6H PRN #28 capsule PRN Reason: Headache Ibuprofen [Motrin] 600 mg PO Q6H PRN #28 tab PRN Reason: Pain Instructions: General Headache Without Cause Referrals: Kirill Parkinson MD [Primary Care Provider] - Forms: ED Department Discharge Additional Instructions: The following information is given to patients seen in the emergency department who are being discharged to home. This information is to outline your options for follow-up care. We provide all patients seen in our emergency department with a follow-up referral. The need for follow-up, as well as the timing and circumstances, are variable depending upon the specifics of your emergency department visit. If you don't have a primary care physician on staff, we will provide you with a referral. We always advise you to contact your personal physician following an emergency department visit to inform them of the circumstance of the visit and for follow-up with them and/or the need for any referrals to a consulting specialist. The emergency department will also refer you to a specialist when appropriate. This referral assures that you have the opportunity for follow-up care with a specialist. All of these measure are taken in an effort to provide you with optimal care, which includes your follow-up. Under all circumstances we always encourage you to contact your private physician who remains a resource for coordinating your care. When calling for follow-up care, please make the office aware that this follow-up is from your recent emergency room visit. If for any reason you are refused follow-up, please contact the [facility] Emergency Department at and asked to speak to the emergency department charge nurse. Please follow up with your primary care physician. If you do not have a primary care physician, see below: [facility] [address] [place] [id number] [facility] [address] [place], [place] [id number] [facility] [address] [address] Sepsis Event Note (ED) - Evaluation Sepsis Screening Result: No Definite Risk - Assessment/Plan Plan: Patient is a 55-year-old female presents today for headache after having a lumbar puncture. Will provide symptomatic treatment but patient may require a blood patch will contact anesthesia if headaches not improved with Reglan and Benadryl. <Rosalio Beltrán - Last Filed: 04/17/21 08:30> Course - Vital Signs Last Recorded V/S: Last Vital Signs Temp 98 F 04/17/21 06:10 Pulse 88 04/17/21 06:10 Resp 20 04/17/21 06:10 BP 128/70 04/17/21 06:10 Pulse Ox 98 04/17/21 06:10 - Orders/Labs/Meds Meds: Medications Discontinued Medications Generic Name Dose Route Start Last Admin Trade Name Miguelito PRN Reason Stop Dose Admin Acetaminophen/Butalbital/Caffeine 1 tab 04/17/21 07:31 04/17/21 07:44 Acetaminophen/Butalbital/Caffeine 325-50-40 Mg Tab PO 04/17/21 07:32 1 tab ONETIME ONE Administration Diphenhydramine HCl 25 mg 04/17/21 06:21 04/17/21 06:45 Diphenhydramine 50 Mg/Ml Sdv IVPUSH 04/17/21 06:22 25 mg ONETIME ONE Administration Caffeine Citrate 500 mg/ 1,025 mls @ 1,000 mls/hr 04/17/21 07:07 04/17/21 07:43 Sodium Chloride IV 04/17/21 08:08 Not Given STAT STA Ketorolac Tromethamine 15 mg 04/17/21 07:07 04/17/21 07:20 Ketorolac 15 Mg/Ml Sdv IVPUSH 04/17/21 07:08 15 mg STAT STA Administration Metoclopramide HCl 10 mg 04/17/21 06:21 04/17/21 06:45 Metoclopramide 10 Mg/2 Ml Sdv IVPUSH 04/17/21 06:22 10 mg ONETIME ONE Administration - Re-Assessments/Exams Free Text/Narrative Re-Assessment/Exam: 04/17/21 07:09 CT imaging is unremarkable. Will add Toradol and IV caffeine and reassess patient for clinical improvement of headache. 04/17/21 07:31 No IV caffeine; will give Fioricet 04/17/21 08:28 Patient is feeling much better after medications. Will discharge with Fioricet and Motrin. Recommend neurology follow-up. Return precautions were discussed at length. Departure - Departure Time of Disposition: 08:29 Condition: Good Sepsis Event Note (ED) - Focused Exam Vital Signs: Vital Signs Temp Pulse Resp BP Pulse Ox 04/17/21 06:10 98 F 88 20 128/70 98
--- NOTE | 2021-04-17 07:03 | CT ---
INDICATION: Headache status post lumbar puncture. TECHNIQUE: CT head without contrast. COMPARISON: None. FINDINGS: CSF spaces: Within normal limits for age. Brain parenchyma: The dominguez-white differentiation is normal. No sign of mass, hemorrhage, or midline shift. Skull base and calvarium: The visualized paranasal sinuses and mastoid air cells demonstrate no acute or significant findings. The visualized orbits are grossly unremarkable. No skull fractures. IMPRESSION: Unremarkable noncontrast head CT. Please note that all CT scans at this facility use dose modulation, iterative reconstruction, and/or weight-based dosing when appropriate to reduce radiation dose to as low as reasonably achievable. Dictated by Omar Ramirez MD @ 04/17/2021 7:01:[address] Omar Ramirez @ Apr 17 2021 7:01AM
[2021-04-17] MEDS ORDERED: SODIUM CHLORIDE 0.9% IV STA (07:07)
[2021-04-17] MEDS ORDERED: Ketorolac 15 MG/ML SDV IVPUSH STA (07:07)
[2021-04-17] MEDS ORDERED: CAFFEINE CITRATE IV STA (07:07)
[2021-04-17] MEDS ORDERED: Acetaminophen/Butalbital/Caffeine 325-50-40 MG Tab PO ONE (07:31)
[2021-04-17 08:41] VITALS: BP 107/61; PULSE 60
== END 2021-04-17 08:42 | disposition home or self-care (01) ==
LOC: MW.ED 05:54
DX: G97.1 Other reaction to spinal and lumbar puncture (principal); E78.00 Pure hypercholesterolemia, unspecified; R56.9 Unspecified convulsions; Z79.899 Other long term (current) drug therapy
CPT/HCPCS: 70450; 96374; 96375; 99284; A9270; J1200; J1885; J2765; 99283

== ENCOUNTER 2021-04-28 14:39 | Emergency (ER) | payer MEDICARE, MEDICAID ==
--- NOTE | 2021-04-28 15:21 | EDM.PDOC ---
ED HPI GENERAL MEDICAL PROBLEM - General Chief Complaint: General Stated Complaint: BLOOD PATCH Time Seen by Provider: 04/28/21 14:49 Source of Information: Reports: Patient History Limitations: Reports: No Limitations - History of Present Illness INITIAL COMMENTS - FREE TEXT/NARRATIVE: Patient is a 55-year-old female presents today for headache. Patient states that she has had a headache since March after she had a lumbar puncture. Patient was seen by me about 10 days ago for headache and was given Reglan and Toradol which improved the headache and also had a CAT scan that did not show any concerning findings. Patient was seen by neurology today as a complaint of headache and was sent here to be evaluated by anesthesia for blood patch. Other than headache patient denies any other vision changes weakness numbness or extremities with complaints. head and neck Pain Score (Numeric/FACES): 8 - Related Data Allergies Allergy/AdvReac Type Severity Reaction Status Date / Time No Known Allergies Allergy Verified 04/28/21 15:10 Home Meds: Home Meds traZODone 100 mg PO BEDTIME 02/20/15 [History] Estrogens, Conjugated [Premarin] 1 mg PO DAILY 06/26/20 [History] Simvastatin 20 mg PO DAILY 06/26/20 [History] DULoxetine [Cymbalta] 60 mg PO DAILY 08/23/20 [History] Albuterol/Ipratropium [Combivent Respimat] 1 puff IH Q4HR PRN 30 Days #1 inhaler 08/27/20 [Rx] Eszopiclone [Lunesta] 12/16/20 [History] Non-Formulary Medication [NF Drug] 1 each PO DAILY 12/16/20 [History] Zolpidem [Ambien] 10 mg PO DAILY 01/29/21 [History] Butalb/Acetaminophen/Caffeine [Fioricet 50-300-40 mg Capsule] 1 each PO Q6H PRN #28 capsule 04/17/21 [Rx] Butalb/Acetaminophen/Caffeine [Fioricet 50-300-40 mg Capsule] 1 each PO Q6H PRN #28 capsule 04/17/21 [Rx] Ibuprofen [Motrin] 600 mg PO Q6H PRN #28 tab 04/17/21 [Rx] Ibuprofen [Motrin] 600 mg PO Q6H PRN #28 tab 04/17/21 [Rx] Past Medical History - Past Health History Medical/Surgical History: Denies Medical/Surgical History HEENT History: Reports: Impaired Vision Other HEENT History: wears glasses 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 History: Reports: High Cholesterol Respiratory History: Reports: None Other Respiratory History: severe covid 2020 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 Genitourinary History: Reports: None 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: Musculoskeletal History: Reports: Fibromyalgia, Neck Pain, Chronic, Osteoporosis Neurological History: Reports: Seizure, Other (See Below) Other Neuro History: ICP Psychiatric History: Reports: Anxiety, Depression Endocrine/Metabolic History: Reports: None Hematologic History: Reports: None Immunologic History: Reports: None Oncologic (Cancer) History: Reports: None Dermatologic History: Reports: None - Infectious Disease History Infectious Disease History: Reports: Chicken Pox, Novel Coronavirus - Past Surgical History Head Surgeries/Procedures: Reports: None GI Surgical History: Reports: Bariatric Procedure, Cholecystectomy Female Surgical History: Reports: Dilitation & Evacuation, Other (See Below) Other Female Surgeries/Procedures: partial hysterectomy Neurological Surgical History: Reports: C-Spine Other Neurological Surgeries/Procedures: 5&6 spinal fusion Social & Family History - Family History Family Medical History: No Pertinent Family History - Tobacco Use Tobacco Use Status *Q: Never Tobacco User Second Hand Smoke Exposure: No - Caffeine Use Caffeine Use: Reports: None - Recreational Drug Use Recreational Drug Use: No ED ROS GENERAL - Review of Systems Review Of Systems: See Below Constitutional: Reports: No Symptoms HEENT: Reports: No Symptoms Respiratory: Reports: No Symptoms 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: Reports: No Symptoms Endocrine: Reports: No Symptoms GI/Abdominal: Reports: No Symptoms : Reports: No Symptoms Musculoskeletal: Reports: No Symptoms Skin: Reports: No Symptoms Neurological: Reports: Headache Psychiatric: Reports: No Symptoms Hematologic/Lymphatic: Reports: No Symptoms Immunologic: Reports: No Symptoms ED EXAM, GENERAL - Physical Exam Exam: See Below Exam Limited By: No Limitations General Appearance: Alert, WD/WN Eye Exam: Bilateral Eye: EOMI, PERRL Head: Atraumatic, Normocephalic Neck: Normal Inspection, Supple, Non-Tender Respiratory/Chest: No Respiratory Distress, Lungs Clear, Normal Breath Sounds 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: Normal Peripheral Pulses, Regular Rate, Rhythm GI/Abdominal: Normal Bowel Sounds, Soft, Non-Tender Neurological: Alert, Oriented, CN II-XII Intact, Normal Cognition, Normal Gait Course - Vital Signs Last Recorded V/S: Last Vital Signs Temp 97.9 F 04/28/21 14:45 Pulse 64 04/28/21 14:45 Resp 18 04/28/21 14:45 BP 133/78 04/28/21 14:45 Pulse Ox 97 04/28/21 14:45 - Orders/Labs/Meds Orders: Active Orders 24 hr Category Date Time Status BASIC METABOLIC PANEL,BMP [CHEM] Stat Lab 04/28/21 15:22 Received Labs: Laboratory Tests 04/28/21 04/28/21 Range/Units 15:22 15:22 WBC 6.25 (4.0-11.0) K/uL RBC 4.08 L (4.30-5.90) M/uL Hgb 12.2 (12.0-16.0) g/dL Hct 37.1 (36.0-46.0) % MCV 90.9 (80.0-98.0) fL MCH 29.9 (27.0-32.0) pg MCHC 32.9 (31.0-37.0) g/dL RDW Std Deviation 43.3 (28.0-62.0) fl RDW Coeff of Etienne 13 (11.0-15.0) % Plt Count 232 (150-400) K/uL MPV 9.40 (7.40-12.00) fL Neut % (Auto) 54.8 (48.0-80.0) % Lymph % (Auto) 35.7 (16.0-40.0) % Saunders % (Auto) 7.7 (0.0-15.0) % Eos % (Auto) 1.3 (0.0-7.0) % Baso % (Auto) 0.5 (0.0-1.5) % Neut # (Auto) 3.4 (1.4-5.7) K/uL Lymph # (Auto) 2.2 (0.6-2.4) K/uL Saunders # (Auto) 0.5 (0.0-0.8) K/uL Eos # (Auto) 0.1 (0.0-0.7) K/uL Baso # (Auto) 0.0 (0.0-0.1) K/uL INR 0.95 APTT 22.2 (18.6-31.3) SEC Departure - Departure Time of Disposition: 15:46 Disposition: Home, Self-Care 01 Condition: Good Clinical Impression: Headache - Discharge Information *PRESCRIPTION DRUG MONITORING PROGRAM REVIEWED*: Not Applicable *COPY OF PRESCRIPTION DRUG MONITORING REPORT IN PATIENT MAKEDA: Not Applicable Instructions: General Headache Without Cause, Epidural Blood Patch for Spinal Headache Referrals: Kirill Parkinson MD [Primary Care Provider] - Forms: ED Department Discharge Additional Instructions: The following information is given to patients seen in the emergency department who are being discharged to home. This information is to outline your options for follow-up care. We provide all patients seen in our emergency department with a follow-up referral. The need for follow-up, as well as the timing and circumstances, are variable depending upon the specifics of your emergency department visit. If you don't have a primary care physician on staff, we will provide you with a referral. We always advise you to contact your personal physician following an emergency department visit to inform them of the circumstance of the visit and for follow-up with them and/or the need for any referrals to a consulting specialist. The emergency department will also refer you to a specialist when appropriate. This referral assures that you have the opportunity for follow-up care with a specialist. All of these measure are taken in an effort to provide you with optimal care, which includes your follow-up. Under all circumstances we always encourage you to contact your private physician who remains a resource for coordinating your care. When calling for follow-up care, please make the office aware that this follow-up is from your recent emergency room visit. If for any reason you are refused follow-up, please contact the Emergency Department at and asked to speak to the emergency department charge nurse. Please follow up with your primary care physician. If you do not have a primary care physician, see below: [facility] [address] [place] [address] [place], [place] [id number] You were seen today for headache that she has had for over a month now. We would like for you to follow-up with anesthesia tomorrow morning at 9 AM at the outpatient walk-in surgery center. Please go there. We have listed the address above as well. Sepsis Event Note (ED) - Evaluation Sepsis Screening Result: No Definite Risk - Focused Exam Vital Signs: Vital Signs Temp Pulse Resp BP Pulse Ox 04/28/21 14:45 97.9 F 64 18 133/78 97 - My Orders Last 24 Hours: My Active Orders 04/28/21 15:22 BASIC METABOLIC PANEL,BMP [CHEM] Stat - Assessment/Plan Last 24 Hours: My Active Orders 04/28/21 15:22 BASIC METABOLIC PANEL,BMP [CHEM] Stat Plan: Patient is a 55-year-old female presents today for headache and evaluation for blood patch. We spoke to anesthesia Dr. Reyna due to time of day and the length since the headache but he would like the patient to come to outpatient surgery center tomorrow morning for evaluation for blood patch there. Patient is agreeable with this plan this is been there for a month and she can which tomorrow morning. Patient basic labs drawn and sent therefore the blood patch.
[2021-04-28 15:49] LABS: BLOOD UREA NITROGEN,BUN 14 mg/dL (7.0-18.0); CARBON DIOXIDE,CO2 23.1 mmol/L (21.0-32.0); CHLORIDE,CL 107 mmol/L (98-107); GLUCOSE RANDOM 80 mg/dL (74-106); POTASSIUM,K 4.1 mmol/L (3.5-5.1); SODIUM,NA 141 mmol/L (136-145)
[2021-04-28 16:17] VITALS: BP 103/56; PULSE 58
== END 2021-04-28 16:10 | disposition home or self-care (01) ==
LOC: MW.ED 14:39
DX: G97.1 Other reaction to spinal and lumbar puncture (principal); E78.00 Pure hypercholesterolemia, unspecified; Z86.16 Personal history of COVID-19; Z79.899 Other long term (current) drug therapy
CPT/HCPCS: 36415; 80048; 85025; 85610; 85730; 99284

== ENCOUNTER 2021-06-13 06:10 | Emergency (ER) | payer MEDICARE, MEDICAID ==
--- NOTE | 2021-06-13 06:59 | EDM.PDOC ---
ED HPI GENERAL MEDICAL PROBLEM - General Chief Complaint: General Stated Complaint: BACK PAIN, LEFT SIDE PAIN, MIGRAINE, SORE THROAT Time Seen by Provider: 06/13/21 06:50 - History of Present Illness INITIAL COMMENTS - FREE TEXT/NARRATIVE: History of present illness: [] The patient has a complicated history with multiple specialists and has a complicated history of papers that were sent to us are brought from [facility] in [place]. The patient has chronic migraine, chronic back problems, acute worsening of her typical back pain so that she has trouble walking because of muscle spasm and purulence coming out of her left tonsillar pillars. The latter 2 things are new. The inability to walk because of spasm is new. She has no cauda equina syndrome. She wants a second opinion from a neurologist and her physician has agreed to help arrange that. She understands that I am not a neurologist and actually do not have neurology consult available in [place] today. She wants help with her pain and spasm in her back and her purulence from her tonsillar pillar on the left. She has no fever but does feel like she has had chills for quite some time. Review of systems: As per history of present illness and below otherwise all systems reviewed and negative. Past medical history: As per history of present illness and as reviewed below otherwise noncontributory. Surgical history: As per history of present illness and as reviewed below otherwise noncontributory. Social history: No reported history of drug or alcohol abuse. Family history: As per history of present illness and as reviewed below otherwise noncontributory. Physical exam: Constitutional - well developed, well-nourished and in no acute distress HEENT -there is some erythema in the posterior pharyngeal soft tissues in the area that she said is draining seems like it might be a little edematous but there is no crossing of the midline and no evidence of peritonsillar or retropharyngeal abscess. Her voice is normal there is no trismus and she handles her secretions. Normocephalic, no evidence of trauma - external nose and mouth normal - no mass in neck and no JVD - mucosae moist EYES - full EOM, PERRL, no icterus - no evidence of inflammation, injection, or drainage Respiratory - no respiratory distress, equal bilateral expansion, lungs clear to auscultation and no abnormal lung sounds 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 - Regular Rhythm with S1 and S2 appreciated and no murmur, gallop or rub. GI - abdomen soft without distension or organomegaly - normal bowel sounds - no guard or rebound Musculoskeletal straight leg raise negative for radicular pain no gross deformity of long bones or joints - no tenderness, swelling or edema Neurologic -there is no numbness in the saddle area or the lower extremities alert and oriented times four - CN II-XII grossly intact - motor sensory and coordination symmetrically normal Psychiatric - appropriate mood and affect with normal thought content Hematologic - No petechiae or purpura - mucosa appropriate color and sclera not pale - normal nail bed color and refill Integument - no rash or evidence of trauma - normal turgor Diagnostics: [] Therapeutics: [] Impression: [] Plan: [] Definitive disposition and diagnosis as appropriate pending reevaluation and review of above. lower back Pain Score (Numeric/FACES): 8 - Related Data Allergies Allergy/AdvReac Type Severity Reaction Status Date / Time No Known Allergies Allergy Verified 06/13/21 06:24 Home Meds: Home Meds Simvastatin 20 mg PO DAILY 06/26/20 [History] DULoxetine [Cymbalta] 60 mg PO DAILY 08/23/20 [History] ALPRAZolam [Xanax] 0.5 mg PO ASDIRECTED PRN 06/13/21 [History] Amphetamine/Dextroamphetamine [Adderall] 20 mg PO TID 06/13/21 [History] Azithromycin 250 mg PO DAILY #6 tablet 06/13/21 [Rx] Magnesium Oxide [Mag-Oxide Magnesium] 400 mg PO DAILY 06/13/21 [History] Topiramate [Trokendi Xr] 25 mg PO BID 06/13/21 [History] diazePAM [Valium] 5 mg PO TID PRN #15 tab 06/13/21 [Rx] Past Medical History - Past Health History Medical/Surgical History: Denies Medical/Surgical History HEENT History: Reports: Impaired Vision Other HEENT History: wears glasses 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 History: Reports: High Cholesterol Respiratory History: Reports: None Other Respiratory History: severe covid 2020 Gastrointestinal History: Reports: Other (See Below) 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 Genitourinary History: Reports: None [employer] History: Reports: Musculoskeletal History: Reports: Fibromyalgia, Neck Pain, Chronic, Osteoporosis Neurological History: Reports: Seizure, Other (See Below) Other Neuro History: ICP Psychiatric History: Reports: Anxiety, Depression Endocrine/Metabolic History: Reports: None Hematologic History: Reports: None Immunologic History: Reports: None Oncologic (Cancer) History: Reports: None Dermatologic History: Reports: None - Infectious Disease History Infectious Disease History: Reports: Chicken Pox, Novel Coronavirus - Past Surgical History Head Surgeries/Procedures: Reports: None HEENT Surgical History: Reports: None 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 Surgical History: Reports: None Respiratory Surgical History: Reports: None GI Surgical History: Reports: Bariatric Procedure, Cholecystectomy Female Surgical History: Reports: Dilitation & Evacuation, Other (See Below) Other Female Surgeries/Procedures: partial hysterectomy Endocrine Surgical History: Reports: None Neurological Surgical History: Reports: C-Spine Other Neurological Surgeries/Procedures: 5&6 spinal fusion Musculoskeletal Surgical History: Reports: None Dermatological Surgical History: Reports: None Social & Family History - Family History Family Medical History: No Pertinent Family History - Tobacco Use Tobacco Use Status *Q: Never Tobacco User - Caffeine Use Caffeine Use: Reports: None - Recreational Drug Use Recreational Drug Use: No ED ROS GENERAL - Review of Systems Review Of Systems: Comprehensive ROS is negative, except as noted in HPI. ED EXAM, GENERAL - Physical Exam Exam: See Below Free Text/Narrative:: My physical exam is in the HPI Course - Vital Signs Last Recorded V/S: Last Vital Signs Temp 37.0 C 06/13/21 06:20 Pulse 77 06/13/21 06:20 Resp 17 06/13/21 06:20 BP 141/87 H 06/13/21 06:20 Pulse Ox 98 06/13/21 06:20 - Orders/Labs/Meds Meds: Medications Discontinued Medications Generic Name Dose Route Start Last Admin Trade Name Freq PRN Reason Stop Dose Admin Diazepam 5 mg 06/13/21 07:08 Diazepam 2 Mg Tab PO 06/13/21 07:09 ONETIME ONE Departure - Departure Time of Disposition: 07:11 Disposition: Home, Self-Care 01 Condition: Good Clinical Impression: Back spasm, Pharyngitis - Discharge Information Prescriptions: Azithromycin 250 mg PO DAILY #6 tablet diazePAM [Valium] 5 mg PO TID PRN #15 tab PRN Reason: Muscle Spasm - Painful Instructions: Muscle Cramps and Spasms, Pharyngitis, [id number] Referrals: Kirill Parkinson MD [Primary Care Provider] - Forms: ED Department Discharge Additional Instructions: [facility] - Neurology Professional Building [address] [place], [address] [place] [address] [facility] - Primary Care [address] [place] [address] [facility] [address] [place] [id number] The following information is given to patients seen in the emergency department who are being discharged to home. This information is to outline your options for follow-up care. We provide all patients seen in our emergency department with a follow-up referral. The need for follow-up, as well as the timing and circumstances, are variable depending upon the specifics of your emergency department visit. If you don't have a primary care physician on staff, we will provide you with a referral. We always advise you to contact your personal physician following an emergency department visit to inform them of the circumstance of the visit and for follow-up with them and/or the need for any referrals to a consulting specialist. The emergency department will also refer you to a specialist when appropriate. This referral assures that you have the opportunity for follow-up care with a specialist. All of these measure are taken in an effort to provide you with optimal care, which includes your follow-up. Under all circumstances we always encourage you to contact your private physician who remains a resource for coordinating your care. When calling for follow-up care, please make the office aware that this follow-up is from your recent emergency room visit. If for any reason you are refused follow-up, please contact the [facility] Emergency Department at and asked to speak to the emergency department charge nurse. Sepsis Event Note (ED) - Evaluation Sepsis Screening Result: No Definite Risk - Focused Exam Vital Signs: Vital Signs Temp Pulse Resp BP Pulse Ox 06/13/21 06:20 37.0 C 77 17 141/87 H 98
[2021-06-13] MEDS ORDERED: Diazepam 2 MG Tab PO ONE (07:08)
[2021-06-13 07:33] VITALS: BP 111/74; PULSE 63
== END 2021-06-13 07:35 | disposition home or self-care (01) ==
LOC: MW.ED 06:10
DX: M62.830 Muscle spasm of back (principal); J02.9 Acute pharyngitis, unspecified; E78.00 Pure hypercholesterolemia, unspecified; Z86.16 Personal history of COVID-19; Z79.899 Other long term (current) drug therapy
CPT/HCPCS: 99283

== ENCOUNTER 2021-07-03 11:43 | Emergency (ER) | payer MEDICARE, MEDICAID ==
[2021-07-03] MEDS ORDERED: Ketorolac 15 MG/ML SDV IM ONE (12:11)
[2021-07-03] MEDS ORDERED: Prochlorperazine 10 MG/2 ML SDV IM ONE (12:12)
[2021-07-03] MEDS ORDERED: diphenhydrAMINE 50 MG/ML SDV IM ONE (12:12)
[2021-07-03] MEDS ORDERED: Ketorolac 15 MG/ML SDV IVPUSH ONE (13:12)
[2021-07-03 13:13] VITALS: BP 107/59; PULSE 55
--- NOTE | 2021-07-03 14:09 | EDM.PDOC ---
ED HPI GENERAL MEDICAL PROBLEM - General Chief Complaint: Back Pain or Injury Stated Complaint: EMS Time Seen by Provider: 07/03/21 11:54 - History of Present Illness INITIAL COMMENTS - FREE TEXT/NARRATIVE: CHIEF COMPLAINT(S): "My back pain has gotten worse." HISTORY OF PRESENT ILLNESS: This is a 56-year-old woman with a past medical history which is complex with a history of back pain and migraine which are chronic who presents to the emergency department with a chief complaint of "my back pain has gotten worse." The patient states that my back pain has gotten worse. She denies any fevers, IV drug use or any rash. She states that her back pain is so bad that she feels muscle spasms in her toes. She states that she is not able to go to the pain clinic because the pain clinic is no longer open and she is now using a walker. She states that her whole back hurts. She states that she is tried many medications including Tylenol which have not worked. She states that everything makes her back hurt more. She states that movement makes it worse. She states that the Valium that she was given last time did not help. She denies any bowel incontinence, urine incontinence or decreased sensation when wiping. She states that she just needs pain medication. REVIEW OF SYSTEMS: Constitutional: Denies fever, chills. Eyes: Denies eye pain Ears, Nose, Mouth, & Throat: Denies earache 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: Denies chest pain Respiratory: Denies shortness of breath Gastrointestinal: Denies Nausea, vomiting, diarrhea, hematochezia. Genitourinary: Denies hematuria Skin:Denies a rash MSK: Positive for back pain and muscle spasm Neurological: Denies blurred vision, numbness, tingling, weakness Psychiatric: Denies depression PAST MEDICAL HISTORY: As per history of present illness and as reviewed below otherwise noncontributory. SURGICAL HISTORY: As per history of present illness and as reviewed below otherwise noncontributory. SOCIAL HISTORY: As per history of present illness and as reviewed below o therwise noncontributory. FAMILY HISTORY: As per history of present illness and as reviewed below otherwise noncontributory. EXAMINATION OF ORGAN SYSTEMS/BODY AREAS: Constitutional: Blood pressure was 133/70, heart rate 66, respiratory rate 18 with an oxygen saturation 9 9% on room air. Temperature 36.4 General: Middle-aged woman who is sitting in the stretcher stating that she is in pain Psychiatric: Appears anxious but is cooperative Eyes: No scleral icterus or conjunctival erythema ENMT: Moist mucous membranes. No pharyngeal erythema 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: Regular, rate, and rhythm. No gallops, murmurs, or rubs. Bilateral upper extremity pulses symmetric and intact. No peripheral edema. No JVD. Respiratory: Lungs clear to auscultation bilaterally. No wheezes, rales, or rhonchi. Gastrointestinal: Soft, non-tender, non-distended. Normoactive bowel sounds Genitourinary: No suprapubic tenderness Musculoskeletal: Normal range of motion. No midline cervical, thoracic, or lumbar spine tenderness. There is paraspinal muscle tenderness. Skin: No lesions or abrasions. Neurological: Alert, GCS 15 strength and sensation grossly intact in upper and lower extremities bilaterally MEDICAL DECISION MAKING AND COURSE IN THE ED WITH INTERPRETATION/REVIEW OF DIAGNOSTIC STUDIES: This is a 56-year-old woman with a complex past medical history with multiple ER visits for muscle/back pain who has normal vital signs at this time. At this time I do not believe any further work-up is indicated. The patient has no red flag symptoms. We will provide the patient with Toradol, Compazine, and Benadryl. We will reevaluate after treatment for improvement. On reevaluation the patient was able to ambulate out any difficulty. I did discuss her at this time she need to follow-up with her primary care physician so that she get referred to a pain clinic. She is to return for any new or worsening symptoms. She was amenable to discharge and had no further questions DISPOSITION: The patient was discharged home in stable condition. The patient will follow up with primary care physician in 1 to 3 days CONDITION: Fair PROCEDURES: None FINAL IMPRESSION(S)/DIAGNOSES: 1. Acute on chronic back pain Benito Dutta M.D. Back Pain Pain Score (Numeric/FACES): 10 - Related Data Allergies Allergy/AdvReac Type Severity Reaction Status Date / Time No Known Allergies Allergy Verified 07/03/21 11:47 Home Meds: Home Meds Simvastatin 20 mg PO DAILY 06/26/20 [History] DULoxetine [Cymbalta] 60 mg PO DAILY 08/23/20 [History] ALPRAZolam [Xanax] 0.5 mg PO ASDIRECTED PRN 06/13/21 [History] Amphetamine/Dextroamphetamine [Adderall] 20 mg PO TID 06/13/21 [History] Azithromycin 250 mg PO DAILY #6 tablet 06/13/21 [Rx] Magnesium Oxide [Mag-Oxide Magnesium] 400 mg PO DAILY 06/13/21 [History] Topiramate [Trokendi Xr] 25 mg PO BID 06/13/21 [History] diazePAM [Valium] 5 mg PO TID PRN #15 tab 06/13/21 [Rx] Diclofenac Sodium 50 mg PO BID #14 tablet. 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 Genitourinary History: Reports: None [employer] History: Reports: Musculoskeletal History: Reports: Fibromyalgia, Neck Pain, Chronic, Osteoporosis Neurological History: Reports: Seizure, Other (See Below) Other Neuro History: ICP Psychiatric History: Reports: Anxiety, Depression Endocrine/Metabolic History: Reports: None Hematologic History: Reports: None Immunologic History: Reports: None Oncologic (Cancer) History: Reports: None Dermatologic History: Reports: None - Infectious Disease History Infectious Disease History: Reports: Chicken Pox, Novel Coronavirus - Past Surgical History Head Surgeries/Procedures: Reports: None HEENT Surgical History: Reports: None 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 Surgical History: Reports: None Respiratory Surgical History: Reports: None GI Surgical History: Reports: Bariatric Procedure, Cholecystectomy Female Surgical History: Reports: Dilitation & Evacuation, Other (See Below) Other Female Surgeries/Procedures: partial hysterectomy Endocrine Surgical History: Reports: None Neurological Surgical History: Reports: C-Spine Other Neurological Surgeries/Procedures: 5&6 spinal fusion Musculoskeletal Surgical History: Reports: None Other Musculoskeletal Surgeries/Procedures:: Disc fusion Dermatological Surgical History: Reports: None Social & Family History - Family History Family Medical History: No Pertinent Family History - Tobacco Use Tobacco Use Status *Q: Never Tobacco User - Caffeine Use Caffeine Use: Reports: None - Recreational Drug Use Recreational Drug Use: No ED ROS GENERAL - Review of Systems Review Of Systems: See Below ED EXAM, GENERAL - Physical Exam Exam: See Below Course - Vital Signs Last Recorded V/S: Last Vital Signs Temp 36.4 C 07/03/21 11:48 Pulse 55 L 07/03/21 13:07 Resp 18 07/03/21 11:48 BP 107/59 L 07/03/21 13:07 Pulse Ox 98 07/03/21 13:07 - Orders/Labs/Meds Meds: Medications Discontinued Medications Generic Name Dose Route Start Last Admin Trade Name Miguelito PRN Reason Stop Dose Admin Diphenhydramine HCl 25 mg 07/03/21 12:12 07/03/21 12:19 Diphenhydramine 50 Mg/Ml Sdv IM 07/03/21 12:13 25 mg ONETIME ONE Administration Ketorolac Tromethamine 15 mg 07/03/21 12:11 07/03/21 12:23 Ketorolac 15 Mg/Ml Sdv IM 07/03/21 12:12 15 mg ONETIME ONE Administration Ketorolac Tromethamine 15 mg 07/03/21 13:12 07/03/21 13:20 Ketorolac 15 Mg/Ml Sdv IVPUSH 07/03/21 13:13 15 mg ONETIME ONE Administration Prochlorperazine Edisylate 2.5 mg 07/03/21 12:12 07/03/21 12:25 Prochlorperazine 10 Mg/2 Ml Sdv IM 07/03/21 12:13 2.5 mg ONETIME ONE Administration Departure - Departure Time of Disposition: 14:08 Disposition: Home, Self-Care 01 Condition: Fair Clinical Impression: Back pain - Discharge Information *PRESCRIPTION DRUG MONITORING PROGRAM REVIEWED*: No *COPY OF PRESCRIPTION DRUG MONITORING REPORT IN PATIENT MAKEDA: No Prescriptions: Diclofenac Sodium 50 mg PO BID #14 tablet. Instructions: Acute Back Pain, Adult, Pain Medicine Instructions, [id number] Forms: ED Department Discharge Additional Instructions: You were evaluated today on an emergent basis. At this time your pain did improve and you did appear more comfortable after the treatment. Given your symptoms I would like you to follow-up with your primary care physician for referral to a pain clinic. In addition I do recommend that you continue to follow-up with neurology given the headache and all the other symptoms you I discussed with me. If you have any worsening symptoms such as defecating on yourself, urinating on yourself, fever, worsening back pain I would like you to return to the emergency department. Otherwise please use Tylenol 500 to 1000 mg every 6 hours and diclofenac for pain relief. [facility] - Primary Care [address] [place] [address] [facility] [address] [place] [id number] The patient is informed of any results of their evaluation and diagnostic workup and all questions are answered. They are given discharge instructions and return precautions. The patient is stable for discharge. The patient states they understand and agree with the plan and that they will return if their symptoms get worse or if they have any new concerns. The following information is given to patients seen in the emergency department who are being discharged to home. This information is to outline your options for follow-up care. We provide all patients seen in our emergency department with a follow-up referral. The need for follow-up, as well as the timing and circumstances, are variable depending upon the specifics of your emergency department visit. If you don't have a primary care physician on staff, we will provide you with a referral. We always advise you to contact your personal physician following an emergency department visit to inform them of the circumstance of the visit and for follow-up with them and/or the need for any referrals to a consulting specialist. The emergency department will also refer you to a specialist when appropriate. This referral assures that you have the opportunity for follow-up care with a specialist. All of these measure are taken in an effort to provide you with optimal care, which includes your follow-up. Under all circumstances we always encourage you to contact your private physician who remains a resource for coordinating your care. When calling for follow-up care, please make the office aware that this follow-up is from your recent emergency room visit. If for any reason you are refused follow-up, please contact the [facility] Emergency Department at and asked to speak to the emergency department charge nurse. Sepsis Event Note (ED) - Evaluation Sepsis Screening Result: No Definite Risk
== END 2021-07-03 14:29 | disposition home or self-care (01) ==
LOC: MW.ED 11:43
DX: G89.29 Other chronic pain (principal); M54.5 Low back pain; E78.00 Pure hypercholesterolemia, unspecified; Z79.899 Other long term (current) drug therapy; Z86.16 Personal history of COVID-19
CPT/HCPCS: 96372; 96374; 99283; J0780; J1200; J1885

== ENCOUNTER 2021-07-08 17:44 | Emergency (ER) | payer MEDICARE, MEDICAID ==
[2021-07-08] MEDS ORDERED: Sodium Chloride 0.9% 10 ML Syringe FLUSH PRN (17:52)
[2021-07-08] MEDS ORDERED: Sodium Chloride 0.9% 2.5 ML Syringe FLUSH PRN (17:52)
--- NOTE | 2021-07-08 18:06 | EDM.PDOC ---
<Rosalio Beltrán - Last Filed: 07/08/21 18:22> ED HPI GENERAL MEDICAL PROBLEM - General Chief Complaint: Neuro Symptoms/Deficits Stated Complaint: SLURRED SPEECH, CONFUSION, OFF BALANCE Time Seen by Provider: 07/08/21 17:51 Source of Information: Reports: Patient History Limitations: Reports: No Limitations - History of Present Illness INITIAL COMMENTS - FREE TEXT/NARRATIVE: 56-year-old female past medical history chronic migraines, chronic back pain presents for headache. Patient is poor historian. She states that her headache started "just a little while ago". She states it came on all of a sudden the worst headache she ever had in her life. She said she felt weak particularly on the left side of her body. Her son noticed that she had slurred speech prompting them to bring her to the emergency department. Unfortunately he had errands to run so he left after dropping her off. - Related Data Allergies Allergy/AdvReac Type Severity Reaction Status Date / Time No Known Allergies Allergy Verified 07/03/21 11:47 Home Meds: Home Meds Simvastatin 20 mg PO DAILY 06/26/20 [History] DULoxetine [Cymbalta] 60 mg PO DAILY 08/23/20 [History] ALPRAZolam [Xanax] 0.5 mg PO ASDIRECTED PRN 06/13/21 [History] Amphetamine/Dextroamphetamine [Adderall] 20 mg PO TID 06/13/21 [History] Azithromycin 250 mg PO DAILY #6 tablet 06/13/21 [Rx] Magnesium Oxide [Mag-Oxide Magnesium] 400 mg PO DAILY 06/13/21 [History] Topiramate [Trokendi Xr] 25 mg PO BID 06/13/21 [History] diazePAM [Valium] 5 mg PO TID PRN #15 tab 06/13/21 [Rx] Diclofenac Sodium 50 mg PO BID #14 tablet. 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: Musculoskeletal History: Reports: Fibromyalgia, Neck Pain, Chronic, Osteoporosis Neurological History: Reports: Seizure, Other (See Below) Other Neuro History: ICP Psychiatric History: Reports: Anxiety, Depression Endocrine/Metabolic History: Reports: None Hematologic History: Reports: None Immunologic History: Reports: None Oncologic (Cancer) History: Reports: None Dermatologic History: Reports: None - Infectious Disease History Infectious Disease History: Reports: Chicken Pox, Novel Coronavirus - Past Surgical History Head Surgeries/Procedures: Reports: None HEENT Surgical History: Reports: None 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 Surgical History: Reports: None Respiratory Surgical History: Reports: None GI Surgical History: Reports: Bariatric Procedure, Cholecystectomy Female Surgical History: Reports: Dilitation & Evacuation, Other (See Below) Other Female Surgeries/Procedures: partial hysterectomy Endocrine Surgical History: Reports: None Neurological Surgical History: Reports: C-Spine Other Neurological Surgeries/Procedures: 5&6 spinal fusion Musculoskeletal Surgical History: Reports: None Other Musculoskeletal Surgeries/Procedures:: Disc fusion Dermatological Surgical History: Reports: None Social & Family History - Family History Family Medical History: No Pertinent Family History - Caffeine Use Caffeine Use: Reports: None ED ROS GENERAL - Review of Systems Review Of Systems: Comprehensive ROS is negative, except as noted in HPI. ED EXAM, GENERAL - Physical Exam Exam: See Below Exam Limited By: No Limitations General Appearance: Alert, WD/WN, Anxious Eye Exam: Bilateral Eye: EOMI, PERRL Ears: Hearing Grossly Normal Throat/Mouth: Normal Voice, No Airway Compromise Head: Atraumatic, Normocephalic Neck: Normal Inspection Respiratory/Chest: No Respiratory Distress, Lungs Clear, Normal Breath Sounds, No Accessory Muscle Use 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: Normal Peripheral Pulses, Regular Rate, Rhythm Extremities: Normal Inspection Neurological: Alert, Oriented, CN II-XII Intact, Normal Cognition, No Motor/Sensory Deficits Psychiatric: Normal Affect, Anxious Skin Exam: Warm, Dry, Intact, Normal Color Course - Re-Assessments/Exams Free Text/Narrative Re-Assessment/Exam: 07/08/21 18:08 NIH stroke scale equals 0. Will get labs and imaging. 07/08/21 18:22 Patient is back from CT. Wet read CT head Noncon is normal. I did talk with patient more in depth about her long history of similar migraine headaches. She states that the facial numbness that she was experiencing has happened before with her migraines. She states that the speech abnormality has not happened where she is unable to speak. Departure - Departure Disposition: Home, Self-Care 01 Clinical Impression: Migraine - Discharge Information Instructions: Migraine Headache, [id number] Referrals: Leila Lerma [Primary Care Provider] - Forms: ED Department Discharge Additional Instructions: Your seen and evaluated in ER today secondary to signs and symptoms of a possible stroke. Your stroke work-up. Did not reveal any abnormalities and CT scan of your head and a CT angiogram of your head and neck. Your symptoms are most likely consistent with a complex migraine. We are recommending that you follow-up with your neurologist next week. We are also recommending that you initiate a aspirin a day to help prevent stroke/TIAs. The following information is given to patients seen in the emergency department who are being discharged to home. This information is to outline your options for follow-up care. We provide all patients seen in our emergency department with a follow-up referral. The need for follow-up, as well as the timing and circumstances, are variable depending upon the specifics of your emergency department visit. If you don't have a primary care physician on staff, we will provide you with a referral. We always advise you to contact your personal physician following an emergency department visit to inform them of the circumstance of the visit and for follow-up with them and/or the need for any referrals to a consulting specialist. The emergency department will also refer you to a specialist when appropriate. This referral assures that you have the opportunity for follow-up care with a specialist. All of these measure are taken in an effort to provide you with optimal care, which includes your follow-up. Under all circumstances we always encourage you to contact your private physician who remains a resource for coordinating your care. When calling for follow-up care, please make the office aware that this follow-up is from your recent emergency room visit. If for any reason you are refused follow-up, please contact the [facility] Emergency Department at and asked to speak to the emergency department charge nurse. Nichole Holloway [facility] [address] [place] [address] [id number] [address] [address] <FabiolaMartin - Last Filed: 07/08/21 20:46> ED HPI GENERAL MEDICAL PROBLEM - History of Present Illness INITIAL COMMENTS - FREE TEXT/NARRATIVE: 8:04 PM: Signout received at 7 PM. This is a 56-year-old female with a history significant for chronic migraines who presents to the ER today with symptoms that are likely consistent with her prior migraines. Patient reports that she had tingling to both sides of her face and numbness to both sides of her face that made it difficult for her to talk with tearing in her eyes. Patient reports that her symptoms have completely resolved after receiving the migraine cocktail that she was given to here in the ED. Patient denies any weakness to her upper or lower extremities. Patient denies any recent fevers, shakes, chills, nausea, vomiting, diarrhea. Patient reports that she has had migraines in the past for which she has been followed up closely with a neurologist. Patient reports that she felt [id number] and sharp pain radiating throughout her entire body however there was some increased discomfort to the left side. Patient denies any weakness or difficulty ambulating at that time. Patient ER work-up today reveals no evidence of an acute stroke. Patient has a normal CT head, CTA of head and neck. Patient's labs are essentially unremarka ble. Patient symptoms do not appear to be consistent with a stroke but rather a complex migraine. Patient will be started on a aspirin a day as the possibility of a TIA exists although extremely unlikely. Patient will need to follow-up with her neurologist for further evaluation of the symptoms. This patient was seen and evaluated during the 2019 SARS-CoV-2 novel coronavirus pandemic period. Community viral transmission is ongoing at time of this encounter and the emergency department is operating under pandemic response procedures. Constitutional: Patient is oriented to person, place, and time. Appears well- developed and well-nourished. No distress. HEENT: Moist mucous membranes Head: Normocephalic and atraumatic Eyes: Right eye exhibits no discharge. Left eye exhibits no discharge. No scleral icterus Neck: Normal range of motion. No tracheal deviation present. 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: Normal rate and regular rhythm. Pulmonary: Effort normal, no respiratory distress. Abdominal: No distention Musculoskeletal: Normal range of motion Neurologic: Alert and oriented to person, place and time. Skin: [place], warm and dry. Psychiatric: Normal mood and affect. Behavior is normal. Judgment and thought content normal. Nursing note and vital signs have been reviewed Neuro: A&Ox3. Cranial nerves II-XII grossly intact, 5/5 strength to bilateral upper and lower extremities, sensation intact to bilateral upper and lower extremities, no nystagmus, PERRLA, EOMI, normal speech, proprioception intact to bilateral lower extremities, normal finger to nose test, gait normal. 1a) Level of consciousness: 0=alert; 1=not alert but arousable by minor stimulation; 2=not alert: requires repeated stimulation to attend or is obtunded and requires strong or painful stimulation to make movements; 3=responds only with reflex motor or autonomic effects or totally unresponsive, flaccid and areflexic SCORE 0 1b) LOC questions ("what month is it?", "how old are you?"): 0=answers both correctly; 1=answers one correctly; 2=answers neither correctly SCORE 0 1c) LOC commands (command patient to "open and close your eyes. Body Art Technician and release your hand.): 0=performs both correctly; 1=performs one correctly; 2=performs neither correctly SCORE0 2) Best gaze ("follow my finger"): 0=normal; 1=partial gaze palsy; 2=forced deviation or total gaze paresis SCORE 0 3) Visual maxwell (use confrontation, finger counting, or visual threat. confront upper/lower quadrants of visual field): 0=no visual loss; 1=partial hemianopsia; 2=complete hemianopsia; 3=bilateral hemianopsia SCORE 0 4) Facial palsy (by words or pantomime, encourage patient to: "Show me your teeth. Raise your eyebrows. Close your eyes."): 0=normal symmetrical movement; 1=minor paralysis (flattened nasolabial fold, asymmetry on smiling); 2=partial paralysis (lower face); 3=complete paralysis SCORE 0 5) Arm motor (alternately position patient's arms. extend each arm with palms down [90 degrees if sitting, 45 degrees if supine] - test each arm in turn and start with nonparetic arm first): 0=no drift; 1=drift (arm falls before 10 seconds); 2=some effort vs. gravity; 3=no effort vs. gravity; 4=no movement; UN (untestable)=amputation or joint fusion SCORE 0 6) Leg motor (alternately position patient's legs. extend each leg [30 degrees, always while supine] - test nonparetic leg first): 0=no drift; 1=drift (leg falls before 5 seconds); 2=some effort vs. gravity; 3= no effort vs. gravity; 4=no movement; UN=amputation or joint fusion SCORE 0 7) Limb ataxia (ask patient [eyes open] to: "touch your finger to your nose. touch your heel to your lopez"): 0=absent; 1=present in one limb; 2=present in two or more limbs; UN=amputation or joint fusion SCORE 0 8) Sensory (test as many body parts as possible [arms and not hands, legs, trunk, face] for sensation using pinprick or noxious stimuli [in the obtunded or aphasic patient]): 0=normal; 1=mild to moderate sensory loss; 2=severe to total sensory loss SCORE 0 9) Best language (using pictures and a sentence list, ask patient to "describe what you see in this picture. Name the items in this picture. Read these sentences"): 0=no aphasia, 1=mild to moderate aphasia; 2=severe aphasia; 3=mute, global aphasia SCORE 0 10) Dysarthria (using a simple word list, ask patient to: "read these words" or "repeat these words"): 0=normal articulation; 1=mild to moderate dysarthria; 2=severe dysarthria; UN=intubated or other physical barrier SCORE 0 11) Extinction and inattention (sufficient information to determine these scores may have been obtained during the prior testing): 0=no abnormality; 1=visual, tactile, auditory, spatial or personal inattention; 2=profound toby-inattention or extinction to more than one modality SCORE 0 TOTAL NIHSS Score:0 I have discussed the results with the patient and at this time she feels much improved and is resting comfortably and is requesting to go home so she get some sleep. At this time I do not feel that the patient will require inpatient level of care and can be followed up as an outpatient. I have discussed with the patient return to the ER she develops any new or concerning symptoms. Reassessment at the time of disposition demonstrates that the patient is in no acute distress. The patient has remained stable throughout the entire ED visit and is without objective evidence for acute process requiring urgent intervention or hospitalization. The patient is stable for discharge, counseling is provided as documented above, discussed symptomatic treatment and specific conditions for return. I have spoken with the patient/caregiver and discussed todays findings, in addition to providing specific details for the plan of care. Questions are answered and there is agreement with the plan. ED ROS GENERAL - Review of Systems Review Of Systems: See Below ED EXAM, GENERAL - Physical Exam Exam: See Below #1 Interpretation EKG Interpretation Comments: EKG: July 08, 2021 7:14 PM As interpreted by ER physician: Fabiola: Nonspecific ST-T wave abnormalities Normal axis No evidence of ST elevation OH Normal sinus rhythm heart rate of 62 Course - Vital Signs Last Recorded V/S: Last Vital Signs Temp 97.6 F 07/08/21 18:30 Pulse 63 07/08/21 20:32 Resp 18 07/08/21 20:32 BP 103/50 L 07/08/21 20:32 Pulse Ox 93 L 07/08/21 20:32 - Orders/Labs/Meds Orders: Active Orders 24 hr Category Date Time Status Saline Lock Insert [OM.PC] Stat Oth 07/08/21 17:52 Ordered Labs: Laboratory Tests 07/08/21 07/08/21 07/08/21 Range/Units 17:51 17:51 17:51 WBC 6.67 (4.0-11.0) K/uL RBC 4.05 L (4.30-5.90) M/uL Hgb 12.0 (12.0-16.0) g/dL Hct 35.2 L (36.0-46.0) % MCV 86.9 (80.0-98.0) fL MCH 29.6 (27.0-32.0) pg MCHC 34.1 (31.0-37.0) g/dL RDW Std Deviation 44.5 (28.0-62.0) fl RDW Coeff of Etienne 14 (11.0-15.0) % Plt Count 151 (150-400) K/uL MPV 9.90 (7.40-12.00) fL Neut % (Auto) 37.1 L (48.0-80.0) % Lymph % (Auto) 52.0 H (16.0-40.0) % Brewster % (Auto) 9.0 (0.0-15.0) % Eos % (Auto) 0.9 (0.0-7.0) % Baso % (Auto) 1.0 (0.0-1.5) % Neut # (Auto) 2.5 (1.4-5.7) K/uL Lymph # (Auto) 3.5 H (0.6-2.4) K/uL Brewster # (Auto) 0.6 (0.0-0.8) K/uL Eos # (Auto) 0.1 (0.0-0.7) K/uL Baso # (Auto) 0.1 (0.0-0.1) K/uL Nucleated RBC % 0.0 /100WBC Nucleated RBCs # 0 K/uL INR 0.93 APTT 23.2 (18.6-31.3) SEC Sodium 137 (136-145) mmol/L Potassium 4.1 (3.5-5.1) mmol/L Chloride 102 (98-107) mmol/L Carbon Dioxide 24.9 (21.0-32.0) mmol/L BUN 11 (7.0-18.0) mg/dL Creatinine 0.7 (0.6-1.0) mg/dL Est Cr Clr Drug Dosing TNP Estimated GFR (MDRD) > 60.0 ml/min Glucose 105 (74-106) mg/dL Lactic Acid (0.4-2.0) mmol/L Calcium 7.8 L (8.5-10.1) mg/dL Magnesium 2.0 (1.8-2.4) mg/dL Total Bilirubin 0.9 (0.2-1.0) mg/dL AST 139 H (15-37) IU/L ALT 177 H (14-63) IU/L Alkaline Phosphatase 188 H (46-116) U/L Troponin I < 0.050 (0.000-0.056) ng/mL Total Protein 6.7 (6.4-8.2) g/dL Albumin 3.6 (3.4-5.0) g/dL Globulin 3.1 (2.6-4.0) g/dL Albumin/Globulin Ratio 1.2 (0.9-1.6) Urine Opiates Screen (NEGATIVE) Ur Oxycodone Screen (NEGATIVE) Urine Methadone Screen (NEGATIVE) Ur Barbiturates Screen (NEGATIVE) Ur Phencyclidine Scrn (NEGATIVE) Ur Amphetamine Screen (NEGATIVE) U Methamphetamines Scrn (NEGATIVE) U Benzodiazepines Scrn (NEGATIVE) U Cocaine Metab Screen (NEGATIVE) U Marijuana (THC) Screen (NEGATIVE) Ethyl Alcohol < 3.0 mg/dL SARS-CoV-2 RNA (NUSRAT) (NEGATIVE) 07/08/21 07/08/21 07/08/21 Range/Units 17:51 18:28 19:05 WBC (4.0-11.0) K/uL RBC (4.30-5.90) M/uL Hgb (12.0-16.0) g/dL Hct (36.0-46.0) % MCV (80.0-98.0) fL MCH (27.0-32.0) pg MCHC (31.0-37.0) g/dL RDW Std Deviation (28.0-62.0) fl RDW Coeff of Etienne (11.0-15.0) % Plt Count (150-400) K/uL MPV (7.40-12.00) fL Neut % (Auto) (48.0-80.0) % Lymph % (Auto) (16.0-40.0) % Brewster % (Auto) (0.0-15.0) % Eos % (Auto) (0.0-7.0) % Baso % (Auto) (0.0-1.5) % Neut # (Auto) (1.4-5.7) K/uL Lymph # (Auto) (0.6-2.4) K/uL Brewster # (Auto) (0.0-0.8) K/uL Eos # (Auto) (0.0-0.7) K/uL Baso # (Auto) (0.0-0.1) K/uL Nucleated RBC % /100WBC Nucleated RBCs # K/uL INR APTT (18.6-31.3) SEC Sodium (136-145) mmol/L Potassium (3.5-5.1) mmol/L Chloride (98-107) mmol/L Carbon Dioxide (21.0-32.0) mmol/L BUN (7.0-18.0) mg/dL Creatinine (0.6-1.0) mg/dL Est Cr Clr Drug Dosing Estimated GFR (MDRD) ml/min Glucose (74-106) mg/dL Lactic Acid 0.9 (0.4-2.0) mmol/L Calcium (8.5-10.1) mg/dL Magnesium (1.8-2.4) mg/dL Total Bilirubin (0.2-1.0) mg/dL AST (15-37) IU/L ALT (14-63) IU/L Alkaline Phosphatase (46-116) U/L Troponin I (0.000-0.056) ng/mL Total Protein (6.4-8.2) g/dL Albumin (3.4-5.0) g/dL Globulin (2.6-4.0) g/dL Albumin/Globulin Ratio (0.9-1.6) Urine Opiates Screen NEGATIVE (NEGATIVE) Ur Oxycodone Screen NEGATIVE (NEGATIVE) Urine Methadone Screen NEGATIVE (NEGATIVE) Ur Barbiturates Screen NEGATIVE (NEGATIVE) Ur Phencyclidine Scrn NEGATIVE (NEGATIVE) Ur Amphetamine Screen NEGATIVE (NEGATIVE) U Methamphetamines Scrn NEGATIVE (NEGATIVE) U Benzodiazepines Scrn NEGATIVE (NEGATIVE) U Cocaine Metab Screen NEGATIVE (NEGATIVE) U Marijuana (THC) Screen NEGATIVE (NEGATIVE) Ethyl Alcohol mg/dL SARS-CoV-2 RNA (NUSRAT) NEGATIVE (NEGATIVE) Meds: Medications Discontinued Medications Generic Name Dose Route Start Last Admin Trade Name Freq PRN Reason Stop Dose Admin Acetaminophen/Butalbital/Caffeine 1 tab 07/08/21 18:33 07/08/21 19:11 Acetaminophen/Butalbital/Caffeine 325-50-40 Mg Tab PO 07/08/21 18:34 1 tab ONETIME ONE Administration Aspirin 325 mg 07/08/21 20:09 Aspirin 325 Mg Tab PO 07/08/21 20:10 ONETIME ONE Diphenhydramine HCl 25 mg 07/08/21 18:33 07/08/21 19:08 Diphenhydramine 50 Mg/Ml Sdv IVPUSH 07/08/21 18:34 25 mg ONETIME ONE Administration Iopamidol 100 ml 07/08/21 19:16 07/08/21 19:16 Iopamidol 755 Mg/Ml 100 Ml Bottle IVPUSH 07/08/21 19:17 100 ml ONETIME STA Administration Metoclopramide HCl 10 mg 07/08/21 18:33 07/08/21 19:11 Metoclopramide 10 Mg/2 Ml Sdv IVPUSH 07/08/21 18:34 10 mg ONETIME ONE Administration Sodium Chloride 10 ml 07/08/21 17:52 07/08/21 19:11 Sodium Chloride 0.9% 10 Ml Syringe FLUSH 10 ml ASDIRECTED PRN Administration Keep Vein Open Sodium Chloride 2.5 ml 07/08/21 17:52 07/08/21 19:11 Sodium Chloride 0.9% 2.5 Ml Syringe FLUSH 2.5 ml ASDIRECTED PRN Administration Keep Vein Open Departure - Departure Time of Disposition: 20:07 Condition: Good Sepsis Event Note (ED) - Focused Exam Vital Signs: Vital Signs Temp Pulse Resp BP Pulse Ox 07/08/21 20:32 63 18 103/50 L 93 L 07/08/21 18:30 97.6 F 61 18 121/66 97 07/08/21 18:00 98.1 F 95 18 120/63 97
[2021-07-08 18:27] LABS: BLOOD UREA NITROGEN,BUN 11 mg/dL (7.0-18.0); CARBON DIOXIDE,CO2 24.9 mmol/L (21.0-32.0); CHLORIDE,CL 102 mmol/L (98-107); GLUCOSE RANDOM 105 mg/dL (74-106); POTASSIUM,K 4.1 mmol/L (3.5-5.1); SODIUM,NA 137 mmol/L (136-145)
[2021-07-08] MEDS ORDERED: diphenhydrAMINE 50 MG/ML SDV IVPUSH ONE (18:33)
[2021-07-08] MEDS ORDERED: Acetaminophen/Butalbital/Caffeine 325-50-40 MG Tab PO ONE (18:33)
[2021-07-08] MEDS ORDERED: Metoclopramide 10 MG/2 ML SDV IVPUSH ONE (18:33)
--- NOTE | 2021-07-08 18:43 | CR ---
INDICATION: Transient alteration of awareness, slurred speech, stroke code TECHNIQUE: Chest radiograph 1 view COMPARISON: 08/22/2020 FINDINGS: The sensitivity and specificity of the exam are moderately limited by the patient`s body habitus. Mediastinum: The mediastinum is normal in appearance. The heart silhouette is normal in size and morphology. Lung: Both lungs are unremarkable in appearance. No sign of pleural effusion seen. No pneumothorax is identified. Bone and Soft tissue: Unremarkable for age. IMPRESSION: 1. No acute cardiopulmonary disease is seen. Dictated by: Omar Joseph MD @ 07/08/2021 18:42:16 (Electronically Signed)
--- NOTE | 2021-07-08 18:47 | CT ---
DATE: 07/08/2021. CLINICAL HISTORY: Patient with worst headache of life and slurred speech. TECHNIQUE: Standard helical CT image acquisition through the head and neck after intravenous contrast bolus enhancement was performed. Multiplanar reconstructed images performed on a separate workstation. COMPARISON: None available. FINDINGS: The origins of the great vessels from the aortic arch are patent. The origins of the right and left vertebral arteries are patent. The common carotid arteries are patent. No significant stenoses at the origins of the proximal internal carotid arteries by NASCET criteria. The more distal cervical segments of the internal carotid arteries are patent. The left vertebral artery is dominant. The cervical segments of the vertebral arteries are patent. No intracranial proximal large vessel occlusion or flow limiting luminal stenosis. The visualized lung apices are unremarkable. The thyroid gland is unremarkable. Prior C5-6 ACDF. IMPRESSION: 1. No intracranial proximal large vessel occlusion or flow limiting luminal stenosis. 2. Patent cervical arterial vasculature without hemodynamically significant luminal stenosis. Please note that all CT scans at this facility use dose modulation, iterative reconstruction, and/or weight-based dosing when appropriate to reduce radiation dose to as low as reasonably achievable. Dictated by Desmond Samayoa MD @ 07/08/2021 10:49:27 PM (Electronically Signed)
--- NOTE | 2021-07-08 18:47 | CT ---
INDICATION: SLURRED SPEECH CT HEAD WITHOUT CONTRAST TECHNIQUE: Multiple axial CT images were performed through the head without intravenous contrast administration. COMPARISON: 04/17/[address] FINDINGS: No acute intracranial hemorrhage is identified. No extra-axial collections are evident and there is no mass effect or midline shift. Ventricles are normal in size and configuration. Brain parenchyma appears normal with unremarkable dominguez-white differentiation. Osseous structures are within normal limits and no fractures are seen. Included portions of the paranasal sinuses and mastoid air cells are normally aerated. IMPRESSION: Normal non-contrast head CT. Report called to Dr. Beltrán at 6:40pm 07/08/2021. TALAT CAMPOVERDE MD [facility] Please note that all CT scans at this facility use dose modulation, iterative reconstruction, and/or weight-based dosing when appropriate to reduce radiation dose to as low as reasonably achievable. Dictated by: Kee Campoverde MD @ 07/08/2021 18:46:31 (Electronically Signed)
[2021-07-08] MEDS ORDERED: Iopamidol 755 Mg/ML 100 ML Bottle IVPUSH STA (19:16)
[2021-07-08] MEDS ORDERED: Aspirin 325 MG Tab PO ONE (20:09)
[2021-07-08 20:33] VITALS: BP 103/50; PULSE 63
== END 2021-07-08 20:42 | disposition home or self-care (01) ==
LOC: MW.ED 17:44
DX: G43.909 Migraine, unspecified, not intractable, without status migrainosus (principal); E78.00 Pure hypercholesterolemia, unspecified; Z79.899 Other long term (current) drug therapy; Z86.16 Personal history of COVID-19; Z20.822 Contact with and (suspected) exposure to COVID-19
CPT/HCPCS: 36415; 70450; 70496; 70498; 71045; 80053; 80305; 80307; 83605; 83735; 84484; 85025; 85610; 85730; 93005; 96374; 96375; 99285; A9270; J1200; J2765; Q9967; U0002